=== PATIENT | male | born 1935 | race Caucasian/White ===

== ENCOUNTER 2019-07-26 21:53 | Inpatient (IN) ==
[2019-07-26] MEDS ORDERED: ACETAMINOPHEN 1,000 MG/100 ML VIAL IV STA (22:07)
[2019-07-26] MEDS ORDERED: LEVALBUTEROL HCL 1.25 MG/3 ML NEB NEB STA ×3 (22:08→23:11)
[2019-07-26 22:23] LABS: Basophils # (auto) 0.01 K/uL (0-0.2); Basophils % (auto) 0.2 %; Eosinophils # (auto) 0.15 K/uL (0-0.5); Eosinophils % (auto) 2.3 %; Hematocrit (blood only) 37.6 % (42-52); Hemoglobin 12.8 g/dL (14.0-18.0); Immature Granulocytes # (auto) 0.01 K/uL (0.00-0.02); Immature Granulocytes % (auto) 0.2 %; Lymphocytes # (auto) 0.46 K/uL (1.2-3.4); Lymphocytes % (auto) 7.1 %; Mean Corpuscular Volume 88.1 fL (80-100); Mean Platelet Volume 9.2 fL (7.4-10.4); Monocytes # (auto) 0.36 K/uL (0.11-0.59); Monocytes % (auto) 5.5 %; Neutrophils % (auto) 84.7 %; Platelet Count 122 K/uL (130-400); RDW Coefficient of Variation 14.1 % (11.5-14.5); RDW Standard Deviation 45.3 fL (36.4-46.3); Red Blood Count 4.27 M/uL (4.7-6.1); White Blood Count 6.49 K/uL (4.8-10.8)
--- NOTE | 2019-07-26 22:25 | XRay Report ---
XR chest 1V portable HISTORY: 84 years-old Male SEPSIS acute sepsis COMPARISON: Chest radiographs 03/10/2018, chest CT 03/09/2018. TECHNIQUE: Portable AP view of the chest FINDINGS: Cardiac silhouette is enlarged, unchanged. Prior median sternotomy and CABG. Left subclavian pacer/AI CD redemonstrated. Chronic reticular opacities. Ill-defined left basilar densities. No pneumothorax, large pleural effusion or overt pulmonary edema. Healed remote right-sided rib fractures. Left-sided pleural calcifications with chronic left costophrenic angle blunting. Degenerative changes of the itz ulders and spine. IMPRESSION: 1. Cardiomegaly without overt pulmonary edema. 2. Chronic bilateral reticular opacities suggest fibrosis. 3. Atelectasis/scarring of the left lung base with pleural calcifications redemonstrated. ACT 112: Negative or not required by law. The above report was generated using voice recognition software. It may contain grammatical, syntax o r spelling errors. Electronically signed by: Casimiro Li M.D. 07/26/2019 10:24 PM
[2019-07-26 22:34] LABS: Appearance Urine Clear (Clear); Bacteria Urine Automated Negative (Negative); Bilirubin Urine Negative (Negative); Blood Urine Negative (Negative); Color Urine Yellow; Glucose Urine UA Negative (Negative); Ketones Urine Negative (Negative); Leukocyte Esterase Urine Trace (Negative); Nitrite Urine Negative (Negative); Protein Urine Negative (Negative); RBC Urine Automated 0-4 /hpf (0-4); Specific Gravity Urine 1.022 (1.000-1.030); Urobilinogen Urine Negative (Negative)
[2019-07-26 22:34] LABS: Partial Thromboplastin Ratio 0.8; Partial Thromboplastin Time 22.5 Seconds (21.0-31.0); Prothrombin Time 10.3 Seconds (9.0-12.0)
[2019-07-26 22:39] LABS: Alanine Aminotransferase 107 U/L (12-78); Albumin Level 3.5 gm/dl (3.4-5.0); Aspartate Aminotransferase 138 U/L (15-37); BUN Creatinine Ratio 19.8 (10-20); Blood Urea Nitrogen 28 mg/dl (7-18); Carbon Dioxide 29 mmol/L (21-32); Chloride 105 mmol/L (98-107); Creatinine Clr Calc Pharmacy 35.1 ml/min; Est GFR (African American) 53.4; Est GFR (Non-African American) 46.1; Glucose 122 mg/dl (70-99); Magnesium 1.9 mg/dl (1.8-2.4); Potassium 4.4 mmol/L (3.5-5.1); Sodium 139 mmol/L (136-145)
[2019-07-26 22:44] LABS: Albumin Globulin Ratio 0.9 (0.9-2); Alkaline Phosphatase 298 U/L (45-117); Bilirubin,Total 0.6 mg/dl (0.2-1); Creatine Kinase 44 U/L (39-308); Creatine Kinase MB 1.2 ng/ml (0.5-3.6); Globulin 4.1 gm/dl (2.5-4.0); Total Protein 7.6 gm/dl (6.4-8.2); Troponin I < 0.015 ng/ml (0-0.045)
[2019-07-26 23:04] LABS: Influenza A virus by PCR Neg for Influ A (Neg); Influenza B virus by PCR Neg for Influ B (Neg)
[2019-07-26] MEDS ORDERED: methylPREDNISolone 125 MG/2 ML VIAL IV STA (23:11)
[2019-07-27] MEDS ORDERED: PIPERACILL/TAZOBAC CONSULT ACTIVE PRN (01:20)
[2019-07-27] MEDS ORDERED: ALBUT/IPRATROP 3MG/0.5MG NEB 3 ML VIAL INH PRN (01:20)
[2019-07-27] MEDS ORDERED: XOPENEX/ATROVENT 1.25mg/0.5MG NEB COMBO NEB SCH (01:20)
[2019-07-27] MEDS ORDERED: POLYETHYLENE (MIRALAX) 17 GM PACK PO PRN (01:20)
[2019-07-27] MEDS ORDERED: ACETAMINOPHEN 325 MG TAB PO PRN (01:20)
[2019-07-27] MEDS ORDERED: ONDANSETRON INJ 2 MG/ML 2 ML VIAL IV PRN (01:20)
[2019-07-27] MEDS ORDERED: FUROSEMIDE 20 MG TAB PO PRN (01:20)
[2019-07-27] MEDS ORDERED: NITROGLYCERIN SL 0.4 MG/TAB TAB SL PRN (01:20)
[2019-07-27] MEDS: SODIUM CHLORIDE 0.9% 1000ML 1,000 ML IV SCH ×2 (01:36→13:41)
[2019-07-27] MEDS ORDERED: PIPERACILLIN/TAZOBACTAM 3.375 GM in DEXTROSE 5% 100 ML IV ONE (01:45)
[2019-07-27] MEDS ORDERED: PNEUMOCOCCAL POLYSACCHARIDES 25 MCG/0.5 ML VIAL/SYR IM ONE (01:53)
[2019-07-27] MEDS ORDERED: PNEUMOCOCCAL ADMINISTRATION CHARGE ONE (01:53)
[2019-07-27] MEDS: DOXYCYCLINE HYCLATE 100 MG CAP PO SCH ×2 (01:54→08:10)
--- NOTE | 2019-07-27 02:04 | Emergency Department Note ---
Entered by Meagan Torrez acting as a scribe for History of Present Illness General Chief complaint: Respiratory Problems Stated complaint: SOB Time Seen by Provider: 07/26/19 22:04 Source: patient Mode of arrival: ambulatory Limitations: no limitations History of Present Illness Onset (ago): day(s) 1 Location: chest Radiation: non-radiation Pain Consistency: + constant Relieved By: + other (Oxygen) Exacerbated By: + none Treatments prior to arrival: other (Oxygen, Nitro) The patient is an 84 year old male who presents to the ED with complaints of respiratory problems. He is not normally on Oxygen at home but he put on his wifes oxygen tonight when he felt like he could not breathe. He took 2 Nitro at home and states they did not help as much as the Oyxgen did. Home Medications Home Medications Medication Instructions Recorded Confirmed Type carbidopa-levodopa 1 tab PO TID 03/09/18 07/26/19 History docusate sodium 100 mg PO BID 03/09/18 07/26/19 History felodipine 2.5 mg PO QPM 03/09/18 07/26/19 History furosemide 20 mg PO MOWEFR 03/09/18 07/26/19 History levothyroxine 88 mcg PO DAILY 03/09/18 07/26/19 History lisinopril 2.5 mg PO QAM 03/09/18 07/26/19 History metoprolol succinate 50 mg PO DAILY 03/09/18 07/26/19 History nitroglycerin 0.4 mg SUBLINGUAL DIRECTED PRN 03/09/18 07/26/19 History nortriptyline 100 mg PO HS 03/09/18 07/26/19 History potassium chloride 10 meq PO DAILY 03/09/18 07/26/19 History ranitidine HCl 300 mg PO HS 03/09/18 07/26/19 History selegiline HCl 5 mg PO BID 03/09/18 07/26/19 History sertraline 100 mg PO DAILY 03/09/18 07/26/19 History simvastatin 40 mg PO HS 03/09/18 07/26/19 History aspirin 81 mg tablet,delayed 81 mg PO DAILY 03/18/19 07/26/19 History release ipratropium 0.5 mg-albuterol 3 mg 3 ml INH UD 10/03/19 02/10/20 History (2.5 mg base)/3 mL nebulization soln ketoconazole 2 % topical cream 1 appln TOP HS 03/18/19 07/26/19 History omeprazole 40 mg capsule,delayed 40 mg PO QAM 03/18/19 07/26/19 History release furosemide 20 mg PO DAILY PRN 07/26/19 07/26/19 History nitroglycerin 1 patch TRANSDERMAL QAM 07/26/19 07/26/19 History Allergies Allergy/AdvReac Type Severity Reaction Status Date / Time haloperidol Allergy Unknown LOSS OF Verified 07/26/19 23:36 VISION Past Med/Surg History Medical History CAD (coronary artery disease) (Chronic) 2001 - S/P CABG x 3 2007 -cardiac catheterization demonstrated severe diffuse disease CKD (chronic kidney disease), stage III (Chronic) Depression (Chronic) Dyslipidemia (Chronic) GERD (gastroesophageal reflux disease) (Chronic) Hypertension (Chronic) Hypothyroidism (Chronic) Ischemic cardiomyopathy (Chronic) JOVITA (obstructive sleep apnea) (Chronic) Parkinson's disease (Chronic) 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) Splenic lesion Surgical History H/O bilateral inguinal hernia repair (Chronic) Hx of cholecystectomy (Chronic) S/P CABG x 3 (Chronic) Social History Preferred Language: Panamanian Communication Ability: Effective Visual Impairment: No Limitations Hearing Ability: Normal Supervisor Type Photography Required: No Beliefs That Will Affect Care: None Current Living Situation: Spouse Current Living Situation Comment: Other Information That Helps Us Care for You: No Feels Safe at Home: Yes Safety Concerns: Feels Safe At This Time Smoking Status: Former smoker Tobacco Type: smokeless tobacco ; Do You Dip or Chew Tobacco: Yes ; Second Hand Exposure: No ; Tobacco Cessation Education Requested by Patient: No Hx Alcohol Use: No Hx Substance Use: No Review of Systems See HPI for pertinent positives & negatives. and A total of 10 systems reviewed and were otherwise negative Physical Exam Vital Signs Vital Signs - 24 hr 07/26/19 22:00 07/26/19 22:06 07/26/19 22:09 Temperature 39.5 C H Temperature Source Oral Pulse Rate 101 H 104 H 103 H Pulse Rate [Right Finger] Pulse Rate from SpO2 Sensor 102 H 104 H Respiratory Rate 26 H 25 H 28 H Respiratory Effort / Characteristics Grunting Labored Respiratory Pattern Gasping Blood Pressure 127/71 140/66 Blood Pressure Mean 90 90 Pulse Oximetry 96 98 95 Oxygen Delivery Method Nasal Cannula Oxygen Flow Rate 4 Sepsis Recent Fever Within 48 Hours No Sepsis New/Unexplained Change in Mental Status No Sepsis Action Taken by Nursing No Action Required 07/26/19 22:10 07/26/19 22:20 07/26/19 22:27 Temperature Temperature Source Pulse Rate 107 H 96 H Pulse Rate [Right Finger] Pulse Rate from SpO2 Sensor 111 H 96 H Respiratory Rate 31 H 24 Respiratory Effort / Characteristics Respiratory Pattern Blood Pressure Blood Pressure Mean Pulse Oximetry 94 98 98 Oxygen Delivery Method Nasal Cannula Oxygen Flow Rate 4 Sepsis Recent Fever Within 48 Hours Sepsis New/Unexplained Change in Mental Status Sepsis Action Taken by Nursing 07/26/19 22:30 07/26/19 22:31 07/26/19 22:40 Temperature Temperature Source Pulse Rate 94 H 95 H 92 H Pulse Rate [Right Finger] 94 H Pulse Rate from SpO2 Sensor 95 H 95 H 91 H Respiratory Rate 25 H 32 H 19 Respiratory Effort / Characteristics Spontaneous SOB on Exertion Respiratory Pattern Blood Pressure 124/65 Blood Pressure Mean 84 Pulse Oximetry 98 98 97 Oxygen Delivery Method Nasal Cannula Oxygen Flow Rate 4 Sepsis Recent Fever Within 48 Hours Sepsis New/Unexplained Change in Mental Status Sepsis Action Taken by Nursing 07/26/19 22:50 07/26/19 23:00 07/26/19 23:10 Temperature Temperature Source Pulse Rate 96 H 90 89 Pulse Rate [Right Finger] Pulse Rate from SpO2 Sensor 91 H 90 90 Respiratory Rate 20 21 Respiratory Effort / Characteristics Respiratory Pattern Blood Pressure 132/75 Blood Pressure Mean 92 Pulse Oximetry 97 98 97 Oxygen Delivery Method Oxygen Flow Rate Sepsis Recent Fever Within 48 Hours Sepsis New/Unexplained Change in Mental Status Sepsis Action Taken by Nursing 07/26/19 23:20 07/26/19 23:30 07/26/19 23:31 Temperature Temperature Source Pulse Rate 85 88 86 Pulse Rate [Right Finger] Pulse Rate from SpO2 Sensor 86 87 87 Respiratory Rate 23 24 Respiratory Effort / Characteristics Respiratory Pattern Blood Pressure 165/129 H Blood Pressure Mean 161 Pulse Oximetry 97 94 97 Oxygen Delivery Method Oxygen Flow Rate Sepsis Recent Fever Within 48 Hours Sepsis New/Unexplained Change in Mental Status Sepsis Action Taken by Nursing 07/26/19 23:32 07/26/19 23:40 07/26/19 23:50 Temperature Temperature Source Pulse Rate 84 87 88 Pulse Rate [Right Finger] 86 Pulse Rate from SpO2 Sensor 84 86 88 Respiratory Rate 16 28 H 22 Respiratory Effort / Characteristics Spontaneous Respiratory Pattern Blood Pressure Blood Pressure Mean Pulse Oximetry 98 98 97 Oxygen Delivery Method Nasal Cannula Oxygen Flow Rate 4 Sepsis Recent Fever Within 48 Hours Sepsis New/Unexplained Change in Mental Status Sepsis Action Taken by Nursing 07/27/19 00:00 07/27/19 00:02 07/27/19 00:10 Temperature Temperature Source Pulse Rate 88 89 88 Pulse Rate [Right Finger] Pulse Rate from SpO2 Sensor 101 H 89 87 Respiratory Rate 24 19 24 Respiratory Effort / Characteristics Respiratory Pattern Blood Pressure 163/59 H Blood Pressure Mean 91 Pulse Oximetry 93 98 98 Oxygen Delivery Method Oxygen Flow Rate Sepsis Recent Fever Within 48 Hours Sepsis New/Unexplained Change in Mental Status Sepsis Action Taken by Nursing GENERAL: Awake, alert, well-appearing, in no acute distress HENT: Normocephalic, atraumatic. Oropharynx unremarkable. EYES: Normal conjunctiva. Sclera non-icteric. NECK: Supple. No nuchal rigidity. FROM. No JVD. CHEST: Pacemaker in place in chest wall. RESPIRATORY: Distant lung sounds. CARDIAC: Regular rate, normal rhythm. Extremities warm and well perfused. Pulses equal. ABDOMEN: Soft, non-distended. No tenderness to palpation. No rebound or guarding. No masses. RECTAL: Deferred. MUSCULOSKELETAL: Chest examination reveals no tenderness. The back is symmetrical on inspection without obvious abnormality. There is no CVA tenderness to palpation. No joint edema. LOWER EXTREMITIES: Calves are equal size bilaterally and non-tender. No edema. No discoloration. NEURO: Normal sensorium. No sensory or motor deficits noted. SKIN: No rash or jaundice noted. Course Course 2204: The patient was evaluated in room B7 and a complete history and physical were performed. 2319: I discussed the patients case with Dr. Rodriguez, [facility] Hospitalist. The patient will be further evaluated. 2330: I reevaluated the patient. He is resting comfortably. I discussed his results and my recommendation he remain in the hospital for further evaluation and management and he is agreeable with the plan. Administered Medications Doxycycline Hyclate (Vibramycin) 100 mg PO BID ANITA Stop: 08/03/19 01:19 Last Admin: 07/27/19 01:54 Dose: 100 mg Documented by: [id number] Sodium Chloride (Nss 1000ml) 1,000 mls @ 80 mls/hr IV .[id number] ANITA Stop: 08/26/19 19:00 Last Admin: 07/27/19 01:36 Dose: 80 mls/hr Documented by: [id number] Piperacillin Sod/Tazobactam (Sod 3.375 gm/ Dextrose) 115 mls @ 230 mls/hr IV ONE ONE; Protocol Stop: 07/27/19 02:14 Last Admin: 07/27/19 01:53 Dose: 230 mls/hr Documented by: [id number] Miscellaneous (Remove Nitro-Dur Patch) 1 ea N/A DAILY@2100 COUNT INCLUDES THE [facility] Stop: 08/26/19 01:44 Last Admin: 07/27/19 01:56 Dose: 1 ea Documented by: [id number] Discontinued Medications Acetaminophen (Ofirmev) 1,000 mg in 100 mls @ 400 mls/hr IV NOW STA Stop: 07/26/19 22:21 Last Infusion: 07/26/19 23:35 Dose: 0 mls/hr Documented by: [id number] Admin: 07/26/19 22:33 Dose: 400 mls/hr Documented by: [id number] Levalbuterol HCl (Xopenex 1.25mg/3ml Neb) 1.25 mg NEB NOW STA Stop: 07/26/19 22:09 Last Admin: 07/26/19 22:30 Dose: 1.25 mg Documented by: [id number] Levalbuterol HCl (Xopenex 1.25mg/3ml Neb) 1.25 mg NEB NOW STA Stop: 07/26/19 23:05 Last Admin: 07/26/19 23:32 Dose: 1.25 mg Documented by: [id number] Levalbuterol HCl (Xopenex 1.25mg/3ml Neb) 1.25 mg NEB NOW STA Stop: 07/26/19 23:12 Last Admin: 07/26/19 23:32 Dose: 1.25 mg Documented by: [id number] Methylprednisolone (Solumedrol) 60 mg IV NOW STA Stop: 07/26/19 23:12 Last Admin: 07/26/19 23:35 Dose: 60 mg Documented by: [id number] Medical Decision Making Differential Diagnosis Differential diagnoses includes but is not limited to pneumonia, bronchitis, COPD/Asthma exacerbation, pneumothorax, pulmonary embolism, congestive heart failure, acute coronary syndrome. Medical Records Attestation: I reviewed the patient's medical records. Home Medications Current Medication List: was personally reviewed by me Laboratory Data Attestation: I reviewed the patient's lab results. Result diagrams: 07/26/19 22:09 07/26/19 22:09 Lab Results 07/26/19 07/26/19 07/26/19 Range/Units 22:09 22:09 22:09 WBC 6.49 (4.8-10.8) K/uL RBC 4.27 L (4.7-6.1) M/uL Hgb 12.8 L (14.0-18.0) g/dL Hct 37.6 L (42-52) % MCV 88.1 (80-100) fL MCH 30.0 (25-34) pg MCHC 34.0 (32-36) g/dL RDW Std Deviation 45.3 (36.4-46.3) fL RDW Coeff of [place]aja 14.1 (11.5-14.5) % Plt Count 122 L (130-400) K/uL MPV 9.2 (7.4-10.4) fL Immature Gran % (Auto) 0.2 % Neut % (Auto) 84.7 % Lymph % (Auto) 7.1 % [place] % (Auto) 5.5 % Eos % (Auto) 2.3 % Baso % (Auto) 0.2 % Immature Gran # (Auto) 0.01 (0.00-0.02) K/uL Neut # (Auto) 5.50 (1.4-6.5) K/uL Lymph # (Auto) 0.46 L (1.2-3.4) K/uL [place] # (Auto) 0.36 (0.11-0.59) K/uL Eos # (Auto) 0.15 (0-0.5) K/uL Baso # (Auto) 0.01 (0-0.2) K/uL PT 10.3 (9.0-12.0) Seconds INR 1.0 (0.9-1.1) APTT 22.5 (21.0-31.0) Seconds PTT Ratio 0.8 Sodium 139 (136-145) mmol/L Potassium 4.4 (3.5-5.1) mmol/L Chloride 105 (98-107) mmol/L Carbon Dioxide 29 (21-32) mmol/L Anion Gap 5.0 (3-11) BUN 28 H (7-18) mg/dl Creatinine 1.41 H (0.6-1.4) mg/dl Est Cr Clr Drug Dosing 35.1 ml/min Est GFR ( Amer) 53.4 Est GFR (Non-Af Amer) 46.1 BUN/Creatinine Ratio 19.8 (10-20) Glucose 122 H (70-99) mg/dl Lactate (0.4-2.0) mmol/L Calcium 9.0 (8.5-10.1) mg/dl Magnesium 1.9 (1.8-2.4) mg/dl Total Bilirubin 0.6 (0.2-1) mg/dl AST 138 H (15-37) U/L ALT 107 H (12-78) U/L Alkaline Phosphatase 298 H (45-117) U/L Total Creatine Kinase 44 (39-308) U/L CK-MB (CK-2) 1.2 (0.5-3.6) ng/ml CK/CKMB % Calc 2.7 (0-3.0) Troponin I < 0.015 (0-0.045) ng/ml Total Protein 7.6 (6.4-8.2) gm/dl Albumin 3.5 (3.4-5.0) gm/dl Globulin 4.1 H (2.5-4.0) gm/dl Albumin/Globulin Ratio 0.9 (0.9-2) Procalcitonin (0-0.5) ng/ml Urine Color Urine Appearance (Clear) Urine pH (4.5-7.5) Ur Specific [place] (1.000-1.030) Urine Protein (Negative) Urine Glucose (UA) (Negative) Urine Ketones (Negative) Urine Blood (Negative) Urine Nitrite (Negative) Urine Bilirubin (Negative) Urine Urobilinogen (Negative) Ur Leukocyte Esterase (Negative) Urine WBC (Auto) (0-5) /hpf Urine RBC (Auto) (0-4) /hpf U Hyaline Cast (Auto) (0-5) /lpf U Epithel Cells (Auto) (0-5) /lpf Urine Bacteria (Auto) (Negative) Influenza Type A (PCR) (Neg) Influenza Type B (PCR) (Neg) 07/26/19 07/26/19 07/26/19 Range/Units 22:09 22:28 Unknown WBC (4.8-10.8) K/uL RBC (4.7-6.1) M/uL Hgb (14.0-18.0) g/dL Hct (42-52) % MCV (80-100) fL MCH (25-34) pg MCHC (32-36) g/dL RDW Std Deviation (36.4-46.3) fL RDW Coeff of Jaja (11.5-14.5) % Plt Count (130-400) K/uL MPV (7.4-10.4) fL Immature Gran % (Auto) % Neut % (Auto) % Lymph % (Auto) % [place] % (Auto) % Eos % (Auto) % Baso % (Auto) % Immature Gran # (Auto) (0.00-0.02) K/uL Neut # (Auto) (1.4-6.5) K/uL Lymph # (Auto) (1.2-3.4) K/uL [place] # (Auto) (0.11-0.59) K/uL Eos # (Auto) (0-0.5) K/uL Baso # (Auto) (0-0.2) K/uL PT (9.0-12.0) Seconds INR (0.9-1.1) APTT (21.0-31.0) Seconds PTT Ratio Sodium (136-145) mmol/L Potassium (3.5-5.1) mmol/L Chloride (98-107) mmol/L Carbon Dioxide (21-32) mmol/L Anion Gap (3-11) BUN (7-18) mg/dl Creatinine (0.6-1.4) mg/dl Est Cr Clr Drug Dosing ml/min Est GFR ( Amer) Est GFR (Non-Af Amer) BUN/Creatinine Ratio (10-20) Glucose (70-99) mg/dl Lactate 1.4 (0.4-2.0) mmol/L Calcium (8.5-10.1) mg/dl Magnesium (1.8-2.4) mg/dl Total Bilirubin (0.2-1) mg/dl AST (15-37) U/L ALT (12-78) U/L Alkaline Phosphatase (45-117) U/L Total Creatine Kinase (39-308) U/L CK-MB (CK-2) (0.5-3.6) ng/ml CK/CKMB % Calc (0-3.0) Troponin I (0-0.045) ng/ml Total Protein (6.4-8.2) gm/dl Albumin (3.4-5.0) gm/dl Globulin (2.5-4.0) gm/dl Albumin/Globulin Ratio (0.9-2) Procalcitonin 0.38 (0-0.5) ng/ml Urine Color Urine Appearance (Clear) Urine pH (4.5-7.5) Ur Specific [place] (1.000-1.030) Urine Protein (Negative) Urine Glucose (UA) (Negative) Urine Ketones (Negative) Urine Blood (Negative) Urine Nitrite (Negative) Urine Bilirubin (Negative) Urine Urobilinogen (Negative) Ur Leukocyte Esterase (Negative) Urine WBC (Auto) (0-5) /hpf Urine RBC (Auto) (0-4) /hpf U Hyaline Cast (Auto) (0-5) /lpf U Epithel Cells (Auto) (0-5) /lpf Urine Bacteria (Auto) (Negative) Influenza Type A (PCR) Neg for Influ A (Neg) Influenza Type B (PCR) Neg for Influ B (Neg) 07/26/19 Range/Units Unknown WBC (4.8-10.8) K/uL RBC (4.7-6.1) M/uL Hgb (14.0-18.0) g/dL Hct (42-52) % MCV (80-100) fL MCH (25-34) pg MCHC (32-36) g/dL RDW Std Deviation (36.4-46.3) fL RDW Coeff of Jaja (11.5-14.5) % Plt Count (130-400) K/uL MPV (7.4-10.4) fL Immature Gran % (Auto) % Neut % (Auto) % Lymph % (Auto) % [place] % (Auto) % Eos % (Auto) % Baso % (Auto) % Immature Gran # (Auto) (0.00-0.02) K/uL Neut # (Auto) (1.4-6.5) K/uL Lymph # (Auto) (1.2-3.4) K/uL [place] # (Auto) (0.11-0.59) K/uL Eos # (Auto) (0-0.5) K/uL Baso # (Auto) (0-0.2) K/uL PT (9.0-12.0) Seconds INR (0.9-1.1) APTT (21.0-31.0) Seconds PTT Ratio Sodium (136-145) mmol/L Potassium (3.5-5.1) mmol/L Chloride (98-107) mmol/L Carbon Dioxide (21-32) mmol/L Anion Gap (3-11) BUN (7-18) mg/dl Creatinine (0.6-1.4) mg/dl Est Cr Clr Drug Dosing ml/min Est GFR ( Amer) Est GFR (Non-Af Amer) BUN/Creatinine Ratio (10-20) Glucose (70-99) mg/dl Lactate (0.4-2.0) mmol/L Calcium (8.5-10.1) mg/dl Magnesium (1.8-2.4) mg/dl Total Bilirubin (0.2-1) mg/dl AST (15-37) U/L ALT (12-78) U/L Alkaline Phosphatase (45-117) U/L Total Creatine Kinase (39-308) U/L CK-MB (CK-2) (0.5-3.6) ng/ml CK/CKMB % Calc (0-3.0) Troponin I (0-0.045) ng/ml Total Protein (6.4-8.2) gm/dl Albumin (3.4-5.0) gm/dl Globulin (2.5-4.0) gm/dl Albumin/Globulin Ratio (0.9-2) Procalcitonin (0-0.5) ng/ml Urine Color Yellow Urine Appearance Clear (Clear) Urine pH 5.0 (4.5-7.5) Ur Specific [place] 1.022 (1.000-1.030) Urine Protein Negative (Negative) Urine Glucose (UA) Negative (Negative) Urine Ketones Negative (Negative) Urine Blood Negative (Negative) Urine Nitrite Negative (Negative) Urine Bilirubin Negative (Negative) Urine Urobilinogen Negative (Negative) Ur Leukocyte Esterase Trace H (Negative) Urine WBC (Auto) 5-10 H (0-5) /hpf Urine RBC (Auto) 0-4 (0-4) /hpf U Hyaline Cast (Auto) 1-5 (0-5) /lpf U Epithel Cells (Auto) 10-20 H (0-5) /lpf Urine Bacteria (Auto) Negative (Negative) Influenza Type A (PCR) (Neg) Influenza Type B (PCR) (Neg) Imaging Data Radiologist's Impression: Radiology results as stated below per my review and the radiologist's interpretation: XR chest 1V portable HISTORY: 84 years-old Male SEPSIS acute sepsis COMPARISON: Chest radiographs 03/10/2018, chest CT 03/09/2018. TECHNIQUE: Portable AP view of the chest FINDINGS: Cardiac silhouette is enlarged, unchanged. Prior median sternotomy and CABG. Left subclavian pacer/AICD redemonstrated. Chronic reticular opacities. Ill- defined left basilar densities. No pneumothorax, large pleural effusion or overt pulmonary edema. Healed remote right-sided rib fractures. Left-sided pleural calcifications with chronic left costophrenic angle blunting. Degenerative changes of the shoulders and spine. IMPRESSION: 1. Cardiomegaly without overt pulmonary edema. 2. Chronic bilateral reticular opacities suggest fibrosis. 3. Atelectasis/scarring of the left lung base with pleural calcifications redemonstrated. ACT 112: Negative or not required by law. The above report was generated using voice recognition software. It may contain grammatical, syntax or spelling errors. Electronically signed by: Casimiro Li M.D. 07/26/2019 10:24 PM ECG Data Attestation: I personally reviewed and interpreted this ECG as follows: Indication: + SOB/dyspnea Rate (beats per minute): 98 Rhythm: + other (Paced rhythm) ECG Intervals/blocks: + Normal QT-c (QTC is 541) ECG ST segments: no ST depression and no ST elevation Blood Pressure Blood Pressure Findings: Elevated blood pressure Blood Pressure Disposition: further management by hospitalist [facility] Narrative This is an 84-year-old male who presents emergency department complaining of s hortness of breath. Patient is not normally on oxygen however his been on his 's oxygen. He was given breathing treatments here in the emergency department and started on Solu-Medrol. As the patient is still requiring oxygen I discussed case with the hospitalist service who did agree to admit the patient. Patient is in agreement with the treatment plan. Impression & Plan Hypoxia, CKD (chronic kidney disease), stage III Discharge Plan Visit Data *Final* Discharge Date/Time: 07/27/19 00:36 Chief Complaint: Respiratory Problems Stated Complaint: SOB ED Provider: Forest Gonzalez Discharge Problem: Hypoxia, CKD (chronic kidney disease), stage III Patient Disposition: Admitted As Inpatient Discharge Instructions Interventions: ED Discharge Assessment Last Done: 07/27/19 00:36 The scribe's documentation has been prepared under my direction and personally reviewed by me in its entirety. I confirm that the note above accurately reflects all work, treatment, procedures, and medical decision making performed by me.
--- NOTE | 2019-07-27 03:11 | History and Physical Report ---
DATE OF ADMISSION: 07/27/2019 CHIEF COMPLAINT: Shortness of breath and abdominal discomfort. HISTORY OF PRESENT ILLNESS: This is an 84-year-old male with past medical history significant for hypothyroidism, hyperlipidemia, ischemic cardiomyopathy, chronic kidney disease stage III, systolic CHF, severe mitral regurgitation, moderate aortic stenosis, hypertension, GERD, Parkinson's disease, depression, CAD status post CABG, biventricular defibrillator, obstructive sleep apnea, supposed to use oxygen at nighttime which the patient is not using it, who lives with his , ambulates without any support, has some difficulty swallowing with his Parkinson's, but he is on regular diet was brought in because he was complaining of shortness of breath, abdominal discomfort at home and he has some dry cough, but he could not bring any phlegm out . At home his put her oxygen on him and his symptoms seemed to improved . It seemed his oxygen sats were only 60% at home. In the ER he is currently requiring 4 liters oxygen and saturating okay. Speaking in full sentences. Has Parkinson's, has some dementia, some tremors in his hands.Vitals are okay currently. Denies any fever or chills. He says the shortness of breath and abdominal pain started at the same time, but they are both resolved now. Denies any diarrhea. He has constipation. He goes bowel movements every 2-3 days, last bowel movement was yesterday and was normal. Normal bladder movements. No swelling in the legs, no rash seen. Denies any headache. Vision is okay. No runny nose, no sore throat. Denies any chest pain. He was spiking temperature in the ER, T-max of 39.5. Flu was negative. Received nebs, Tylenol and steroids in the ER, seems to be stable at this time. ALLERGIES: HALOPERIDOL. PAST MEDICAL HISTORY: As mentioned above. PAST SURGICAL HISTORY: Cardiac cath, CABG, EGD with biopsy, laparoscopic cholecystectomy, repair of recurrent inguinal hernia, defibrillator. MEDICATIONS: Currently on lisinopril 2.5 mg p.o. daily; Zoloft 100 mg p.o. daily; nortriptyline 100 mg p.o. at bedtime; Pepcid 40 mg p.o. daily; selegiline 5 mg daily with food; Toprol-XL 50 mg p.o. daily; felodipine ER 2.5 mg p.o. daily; Lasix 20 mg on Friday, Friday and Fridays and additional tablet as needed; ketoconazole 2% cream apply topically daily p.r.n.; levothyroxine 88 mcg p.o. daily; nitroglycerin 0.4 mg per hour patch in the morning and remove in the evening; omeprazole 40 mg p.o. daily; potassium chloride 10 mEq p.o. daily; simvastatin 40 mg p.o. at bedtime; carbidopa/levodopa 25/100 one tablet 3 times a day; nitroglycerin 0.4 mg sublingual p.r.n.; aspirin 81 mg p.o. daily; Duo Nebs 4-6 times daily; Colace 100 mg p.o. daily. FAMILY HISTORY: No family history on file. SOCIAL HISTORY: and lives with his , snuffs tobacco. No alcohol use, no drug use. REVIEW OF SYMPTOMS: As per HPI. Rest of review of symptoms negative. PHYSICAL EXAMINATION: GENERAL: The patient is of moderate build, currently not in acute distress. VITAL SIGNS: Temperature 39.5, pulse 86, respiratory rate 18, blood pressure 99/62, oxygen 93% on 4 liters. HEENT: No pallor, no icterus. Pupils equal, round, reactive to light. NECK: No JVD, no neck masses, no carotid bruits. CARDIOVASCULAR: S1, S2 heard. Regular rate and rhythm. No murmur, no gallop. RESPIRATORY SYSTEM: Normal AP diameter. No accessory muscle use. mild rhonchi. No wheezing. ABDOMEN: Soft, bowel sounds present, nontender. No distention. CENTRAL NERVOUS SYSTEM: Alert, awake and oriented. Speech clear. Obeys commands. Moves extremities. EXTREMITIES: No edema, no erythema seen. LABORATORY DATA: WBC 6.4, hemoglobin 12.8, hematocrit 37.6, platelets 122. PT 10.3, INR 1, APTT 22.5. Sodium 139, potassium 4.4, chloride 105, bicarb 29, BUN 28, creatinine 1.4, serum glucose 129, lactate 1.4, calcium 9, magnesium 1.9. Total bilirubin 0.6, AST 138, ALT 107, alkaline phosphatase 298. Total creatine kinase 44, CK-MB 1.2. Troponin I less than 0.015. Procalcitonin 0.38. Urinalysis; trace leukocyte esterase positive. Influenza A and B, PCR negative. Chest x-ray: Cardiomegaly without overt pulmonary edema, chronic bilateral reticular opacities suggest fibrosis, atelectasis and scarring at the left lung base with pleural calcifications re demonstrated. ASSESSMENT AND PLAN: This is an 84-year-old male who presents with shortness of breath and abdominal discomfort and hypoxia, possible chronic obstructive pulmonary disease exacerbation and also elevated LFTs in labs. 1. Shortness of breath, history of COPD. Copd exacerbation.Hypoxia. Follows with Pulmonary. Received nebs and steroids in the ER which we will continue with IV Solu-Medrol 40 mg t.i.d., nebs around the clock and p.r.n. We will place him on doxycycline and Zosyn for now and continue his oxygenation. Monitor in the med/surg tele.Possible aspiration? speech evaluation. 2. Fever, elevated LFTs, abdominal discomfort. Chest x-ray unremarkable. UA, esterase positive. Antibiotics as above. We will follow the cultures. We will get a CT abdomen and pelvis and repeat LFTs in a.m. and monitor in the medical floor. 3. Obstructive sleep apnea, noncompliant with oxygen in the nighttime. 4. History of CAD, status post CABG. On Toprol-XL, aspirin, nitro patch and statin. Currently seems to be stable .. We will continue and monitor. 5. History of chronic systolic CHF, EF of 50% and also Diastolic moderate aortic stenosis. He is currently getting gentle fluids. We will continue home Lasix and lisinopril.. Monitor for any volume overload. 6. History of hypertension, on lisinopril, Toprol-XL, diuretic, nitropatch and felodipine.. We will monitor the blood pressure. 7. History of depression, on Zoloft and nortriptyline. 8. History of GERD, on PPI and Pepcid. 9. History of Parkinson's disease, on Sinemet and selegiline which we will continue. PT and OT prior to discharge. 10. Hypothyroidism. Continue Synthroid. 11. Chronic kidney disease stage III. Baseline creatinine around 1.3-1.4, current creatinine 1.4. We will follow the labs. 12. DVT prophylaxis, heparin subQ. DISPOSITION: Admit to med/surg tele. Level 1 full code. PT and OT prior to discharge. Social Service to help with discharge planning. MTDD
[2019-07-27] MEDS: PIPERACILLIN/TAZOBACTAM 3.375 GM in DEXTROSE 5% 100 ML IV SCH ×3 (05:41→22:53)
[2019-07-27] MEDS: HEPARIN SOD 5,000 UNIT/0.5 ML VIAL SQ SCH ×3 (05:45→22:45)
[2019-07-27] MEDS: LEVOTHYROXINE SODIUM 88 MCG TABLET PO SCH (05:45)
[2019-07-27 06:12] LABS: Alanine Aminotransferase 99 U/L (12-78); Alkaline Phosphatase 207 U/L (45-117); Aspartate Aminotransferase 95 U/L (15-37); Bilirubin Direct < 0.1 mg/dl (0-0.2); Bilirubin,Total 0.6 mg/dl (0.2-1); Total Protein 6.6 gm/dl (6.4-8.2)
[2019-07-27] MEDS: LEVALBUTEROL 1.25MG/0.5ML NEB INH SCH ×3 (06:59→20:30)
[2019-07-27] MEDS: IPRATROPIUM BROMIDE NEB SOLN 0.02% 2.5 ML VIAL INH SCH ×3 (06:59→20:30)
--- NOTE | 2019-07-27 07:22 | CT Scan Report ---
CT SCAN OF THE ABDOMEN AND PELVIS WITHOUT IV CONTRAST CLINICAL HISTORY: Generalized abdominal pain. COMPARISON STUDY: Abdominal CT dated 03/09/2018 and 01/22/2008. MRCP dated 03/09/2013. TECHNIQUE: CT scan of the abdomen and pelvis is performed from the lung bases to the proximal femora. Images are reviewed in the axial, sagittal, and coronal planes. IV contrast was not administered for this examination as per the referring clinician. Note that the examination was performed in signific ant suboptimal fashion without oral and IV contrast. A dose lowering technique was utilized adhering to the principles of ALARA. CT DOSE: 433.50 mGy.cm FINDINGS: Lung bases: The patient is status post midline sternotomy. The heart is mildly enlarged and without p ericardial effusion. The coronary arteries and aortic valve leaflets are densely calcified. There is diminished attenuation of the cardiac blood pool as compared to the myocardium suggesting anemia. Pac emaker leads are noted. Gynecomastia is noted. Calcified pleural plaque with associated pleural thick ening is again seen at the left lung base. Probable scarring and atelectasis is noted at the lung bas es. There is no airspace consolidation typical for pneumonia or pleural effusion. A small hiatal stacy ia is identified. Liver: The unenhanced liver is normal in size, contour, and attenuation. There is no intrahepatic gio iary ductal dilatation. Pneumobilia is again noted. There are scattered calcified granulomas. Gallbladder: Surgically absent. Spleen: Normal in size and attenuation. There are numerous calcified splenic granulomas. Pancreas: The unenhanced pancreas is atrophic. There is a 1.7 cm well-circumscribed and slightly hype rdense lesion in the uncinate process seen on axial image #162. This is been present dating back to 2 008 and is of low suspicion. Adrenal glands: Unremarkable. Kidneys: The unenhanced kidneys are atrophic and without hydronephrosis. There are no renal calculi i dentified. There is no evidence of contour deforming renal mass lesion. Abdominal vasculature: The abdominal aorta is normal in course and caliber noting advanced atheroscle rotic calcification. Bowel: There is mild to moderate colonic fecal retention. No bowel obstruction is seen. The appendix is well visualized and normal. Peritoneum: There is no intraperitoneal free air or abdominal ascites. Lymphadenopathy: None. Pelvic viscera: The prostate gland is enlarged and heterogeneous, measuring 5.4 cm in transverse diam eter. There is median lobe hypertrophy. The bladder wall is thickened and trabeculated indicating chr onic outlet obstruction. There is a small fat-containing left inguinal hernia. Skeletal structures: The skeletal structures are osteopenic. There is a mild chronic superior endplat e compression deformity of T1. Moderate lumbosacral spondylosis is observed. No lytic or blastic lesi ons are seen. There are numerous healed right-sided rib fractures. IMPRESSION: 1. There are no acute infectious or inflammatory findings in the abdomen or pelvis. 2. Cardiomegaly and cardiac pacemaker. 3. Mild/moderate constipation. 4. Prostatomegaly with evidence of chronic bladder outlet obstruction. 5. Additional findings as above. ACT 112: Negative or not required by law. Electronically signed by: Avtar Porter M.D. 07/27/2019 7:21 AM
[2019-07-27] MEDS: SELEGILINE HCL 5 MG TAB PO SCH ×2 (08:09→22:39)
[2019-07-27] MEDS: POTASSIUM CHLORIDE 10 MEQ TABCR PO SCH (08:09)
[2019-07-27] MEDS: ASPIRIN 81 MG ECTAB PO SCH (08:09)
[2019-07-27] MEDS: DOCUSATE SODIUM 100 MG CAP PO SCH ×2 (08:09→22:39)
[2019-07-27] MEDS: NITROGLYCERIN 0.4 MG/HR PATCH TD SCH (08:09)
[2019-07-27] MEDS: CARBIDOPA/LEVODOPA 25/100MG TAB PO SCH ×3 (08:10→22:44)
[2019-07-27] MEDS: METOPROLOL SUCC 50MG EXT REL TAB PO SCH (08:10)
[2019-07-27] MEDS: methylPREDNISolone 40 MG in SYRINGE 0 ML IV SCH ×2 (08:10→16:17)
[2019-07-27] MEDS: PANTOprazole 40 MG TAB PO SCH (08:10)
[2019-07-27] MEDS: SERTRALINE HCL 100 MG TABLET PO SCH (08:10)
--- NOTE | 2019-07-27 13:26 | Gastrointestinal Consultation ---
Date of Consultation July 27, 2019 Assessment & Plan (1) Elevated LFTs: 84 year old male HTN, dyslipidemia, hypothyroidism, CKD-3, ischemic cardiomyopathy, chronic kidney disease stage III, systolic CHF, mitral regurgitation, moderate aortic stenosis, GERD, PD, CAD status post CABG, biv entricular defibrillator, JOVITA admitted through the ED w/ abdominal pain, elevated LFTs, SOB and positive blood cultures. He does have a history of cholecystectomy years ago, retained biliary sludge s/p ERCP w/ balloon sweep and sphincterotomy in 2008 - NPO - Follow blood cultures - Trend LFTs - ABD US and ABD doppler - If his cardiac device is MR compatible, please consider MRCP - Agree w/ IV ABX for biliary coverage - IV hydration for maintenance fluid - Closely watch for signs of volume overload - Lipase, BNP Thank you for allowing us to participate in the care of this patient. Please fady l with any acute changes, questions or concerns. Please see addendum below with additional recommendation from my supervising physician. Present on Admission?: Yes Supervising Physician Co-Signing Physician Notes I have seen and examined the patient and discussed the management with ELEAZAR [place]> 84 yo male with significant cardiac history and defibrillator, admitted for sob, noted to be hypotensive and with + blood culture. Prior cholecsystectomy and ercp with sphincterotomy in the past. Labs showing ast/alt/alk phos elevation, no bili elevation. Non con CT A/P showing non dilated ih/eh bile ducts. Diff- congestive hepatopathy, versus retained stone. unlikely to be able to get MRCP, will plan for abd karo with doppler. continue abx. Pending on results of abd karo with doppler and size of cbd, will determine if he needs an ercp or not. Checking bnp, lipase, viral serologies as well. History of Present Illness Reason for Consultation: elevated, lfts Requesting Physician: Josh Attending Physician: Mehreen Moreno MD History of Present Illness 84 year old male w/ chronic comorbidities of HTN, dyslipidemia, hypothyroidism, CKD-3, ischemic cardiomyopathy, chronic kidney disease stage III, systolic CHF, mitral regurgitation, moderate aortic stenosis, GERD, PD, CAD status post CABG, biventricular defibrillator, JOVITA who presents through the ED w/ weakness, fatigue subsequently admitted w/ positive blood cultures, hypoxia, possible chronic obstructive, pulmonary disease exacerbation. GI asked to evaluate for elevated LFTs and abdominal pain. Pt was seen and evaluated, chart reviewed. He is a poor historian. No family at bedside. He does report upper abdominal pain. He is unable to specify when this started but suggests it woke him up from his sleep. Pain is currently subsided but suggests it has been intermittent and se lynda when occurs. No nausea/vomiting. Is constipated, moves bowels once every 3/4 days. No black or bloody stools Denies ETOH Uses tylenol PRN blood culture: gram negative bacilli TB 0.6 AST 95 ALT 99 ALKP 207 CTAP: Liver: The unenhanced liver is normal in size, contour, and attenuation. There is no intrahepatic biliary ductal dilatation. Pneumobilia is again noted. There are scattered calcified granulomas.Gallbladder: Surgically absent.Spleen: Normal in size and attenuation. There are numerous calcified splenic granulomas. The unenhanced pancreas is atrophic. There is a 1.7 cm well-circumscribed and slightly hyperdense lesion in the uncinate process seen on axial image #162. This is been present dating back to 2007 and is of low suspicion. Allergies Allergy/AdvReac Type Severity Reaction Status Date / Time haloperidol Allergy Unknown LOSS OF Verified 07/26/19 23:36 VISION Home Medications Home Medications Medication Instructions Recorded Confirmed Type carbidopa-levodopa 1 tab PO TID 03/09/18 07/26/19 History docusate sodium 100 mg PO BID 03/09/18 07/26/19 History felodipine 2.5 mg PO QPM 03/09/18 07/26/19 History furosemide 20 mg PO MOWEFR 03/09/18 07/26/19 History levothyroxine 88 mcg PO DAILY 03/09/18 07/26/19 History lisinopril 2.5 mg PO QAM 03/09/18 07/26/19 History metoprolol succinate 50 mg PO DAILY 03/09/18 07/26/19 History nitroglycerin 0.4 mg SUBLINGUAL DIRECTED PRN 03/09/18 07/26/19 History nortriptyline 100 mg PO HS 03/09/18 07/26/19 History potassium chloride 10 meq PO DAILY 03/09/18 07/26/19 History ranitidine HCl 300 mg PO HS 03/09/18 07/26/19 History selegiline HCl 5 mg PO BID 03/09/18 07/26/19 History sertraline 100 mg PO DAILY 03/09/18 07/26/19 History simvastatin 40 mg PO HS 03/09/18 07/26/19 History aspirin 81 mg tablet,delayed 81 mg PO DAILY 03/18/19 07/26/19 History release ipratropium 0.5 mg-albuterol 3 mg 3 ml INH UD 03/18/19 07/26/19 History (2.5 mg base)/3 mL nebulization soln ketoconazole 2 % topical cream 1 appln TOP HS 03/18/19 07/26/19 History omeprazole 40 mg capsule,delayed 40 mg PO QAM 03/18/19 07/26/19 History release furosemide 20 mg PO DAILY PRN 07/26/19 07/26/19 History nitroglycerin 1 patch TRANSDERMAL QAM 07/26/19 07/26/19 History Patient History Medical History CAD (coronary artery disease) (Chronic) 2001 - S/P CABG x 3 2006 -cardiac catheterization demonstrated severe diffuse disease CKD (chronic kidney disease), stage III (Chronic) Depression (Chronic) Dyslipidemia (Chronic) GERD (gastroesophageal reflux disease) (Chronic) Hypertension (Chronic) Hypothyroidism (Chronic) Ischemic cardiomyopathy (Chronic) 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) Splenic lesion Surgical History H/O bilateral inguinal hernia repair (Chronic) Hx of cholecystectomy (Chronic) S/P CABG x 3 (Chronic) Social History Preferred Language: Belarusian Communication Ability: Effective Visual Impairment: No Limitations Hearing Ability: Normal Putty Mixer Required: No Beliefs That Will Affect Care: None Current Living Situation: Spouse Current Living Situation Comment: Other Information That Helps Us Care for You: No Feels Safe at Home: Yes Safety Concerns: Feels Safe At This Time Smoking Status: Former smoker Tobacco Type: smokeless tobacco ; Do You Dip or Chew Tobacco: Yes ; Second Hand Exposure: No ; Tobacco Cessation Education Requested by Patient: No Hx Alcohol Use: No Hx Substance Use: No Review of Systems Constitutional: + fever, + chills, + fatigue and + malaise Respiratory: + cough and + dyspnea; no pain on inspiration Cardiovascular: + dyspnea on exertion; no chest pain and no radiating jaw, neck or arm pain Gastrointestinal: + abdominal pain and + constipation; no bloating, no nausea, no vomiting, no coffee ground emesis and no dysphagia Physical Exam Constitutional: + ill appearing (acute on chronically ill); no acute distress Neck: trachea midline Respiratory: normal respiratory effort; no respiratory distress Cardiovascular: Rate/Rhythm: regular rate and regular rhythm Gastrointestinal (Abdomen): normal bowel sounds, soft, nontender, no hepatosplenomegaly Results & Data ([facility]) Vital Signs (Past 12 Hours) Vital Signs Temp Pulse Pulse Resp BP BP Pulse Ox 07/27/19 13:03 64 16 98 07/27/19 11:56 36.3 C L 82 18 101/53 L 99 07/27/19 07:34 60 07/27/19 07:01 63 20 98 07/27/19 06:53 36.6 C 66 20 112/59 L 100 07/27/19 03:31 36.7 C 69 18 99/62 L 100 Laboratory Results 07/27/19 07/26/19 07/26/19 Range/Units 05:29 Unknown Unknown WBC (4.8-10.8) K/uL RBC (4.7-6.1) M/uL Hgb (14.0-18.0) g/dL Hct (42-52) % MCV (80-100) fL MCH (25-34) pg MCHC (32-36) g/dL RDW Std Deviation (36.4-46.3) fL RDW Coeff of [place] (11.5-14.5) % Plt Count (130-400) K/uL MPV (7.4-10.4) fL Immature Gran % (Auto) % Neut % (Auto) % Lymph % (Auto) % [place] % (Auto) % Eos % (Auto) % Baso % (Auto) % Immature Gran # (Auto) (0.00-0.02) K/uL Neut # (Auto) (1.4-6.5) K/uL Lymph # (Auto) (1.2-3.4) K/uL [place] # (Auto) (0.11-0.59) K/uL Eos # (Auto) (0-0.5) K/uL Baso # (Auto) (0-0.2) K/uL PT (9.0-12.0) Seconds INR (0.9-1.1) APTT (21.0-31.0) Seconds PTT Ratio Sodium (136-145) mmol/L Potassium (3.5-5.1) mmol/L Chloride (98-107) mmol/L Carbon Dioxide (21-32) mmol/L Anion Gap (3-11) BUN (7-18) mg/dl Creatinine (0.6-1.4) mg/dl Est Cr Clr Drug Dosing ml/min Est GFR ( Amer) Est GFR (Non-Af Amer) BUN/Creatinine Ratio (10-20) Glucose (70-99) mg/dl Lactate (0.4-2.0) mmol/L Calcium (8.5-10.1) mg/dl Magnesium (1.8-2.4) mg/dl Total Bilirubin 0.6 (0.2-1) mg/dl Direct Bilirubin < 0.1 (0-0.2) mg/dl AST 95 H (15-37) U/L ALT 99 H (12-78) U/L Alkaline Phosphatase 207 H (45-117) U/L Total Creatine Kinase (39-308) U/L CK-MB (CK-2) (0.5-3.6) ng/ml CK/CKMB % Calc (0-3.0) Troponin I (0-0.045) ng/ml Total Protein 6.6 (6.4-8.2) gm/dl Albumin 3.0 L (3.4-5.0) gm/dl Globulin (2.5-4.0) gm/dl Albumin/Globulin Ratio (0.9-2) Procalcitonin (0-0.5) ng/ml Urine Color Yellow Urine Appearance Clear (Clear) Urine pH 5.0 (4.5-7.5) Ur Specific [place] 1.022 (1.000-1.030) Urine Protein Negative (Negative) Urine Glucose (UA) Negative (Negative) Urine Ketones Negative (Negative) Urine Blood Negative (Negative) Urine Nitrite Negative (Negative) Urine Bilirubin Negative (Negative) Urine Urobilinogen Negative (Negative) Ur Leukocyte Esterase Trace H (Negative) Urine WBC (Auto) 5-10 H (0-5) /hpf Urine RBC (Auto) 0-4 (0-4) /hpf U Hyaline Cast (Auto) 1-5 (0-5) /lpf U Epithel Cells (Auto) 10-20 H (0-5) /lpf Urine Bacteria (Auto) Negative (Negative) Influenza Type A (PCR) Neg for Influ A (Neg) Influenza Type B (PCR) Neg for Influ B (Neg) 07/26/19 07/26/19 07/26/19 Range/Units 22:28 22:09 22:09 WBC (4.8-10.8) K/uL RBC (4.7-6.1) M/uL Hgb (14.0-18.0) g/dL Hct (42-52) % MCV (80-100) fL MCH (25-34) pg MCHC (32-36) g/dL RDW Std Deviation (36.4-46.3) fL RDW Coeff of [place] (11.5-14.5) % Plt Count (130-400) K/uL MPV (7.4-10.4) fL Immature Gran % (Auto) % Neut % (Auto) % Lymph % (Auto) % [place] % (Auto) % Eos % (Auto) % Baso % (Auto) % Immature Gran # (Auto) (0.00-0.02) K/uL Neut # (Auto) (1.4-6.5) K/uL Lymph # (Auto) (1.2-3.4) K/uL [place] # (Auto) (0.11-0.59) K/uL Eos # (Auto) (0-0.5) K/uL Baso # (Auto) (0-0.2) K/uL PT (9.0-12.0) Seconds INR (0.9-1.1) APTT (21.0-31.0) Seconds PTT Ratio Sodium 139 (136-145) mmol/L Potassium 4.4 (3.5-5.1) mmol/L Chloride 105 (98-107) mmol/L Carbon Dioxide 29 (21-32) mmol/L Anion Gap 5.0 (3-11) BUN 28 H (7-18) mg/dl Creatinine 1.41 H (0.6-1.4) mg/dl Est Cr Clr Drug Dosing 35.1 ml/min Est GFR ( Amer) 53.4 Est GFR (Non-Af Amer) 46.1 BUN/Creatinine Ratio 19.8 (10-20) Glucose 122 H (70-99) mg/dl Lactate 1.4 (0.4-2.0) mmol/L Calcium 9.0 (8.5-10.1) mg/dl Magnesium 1.9 (1.8-2.4) mg/dl Total Bilirubin 0.6 (0.2-1) mg/dl Direct Bilirubin (0-0.2) mg/dl AST 138 H (15-37) U/L ALT 107 H (12-78) U/L Alkaline Phosphatase 298 H (45-117) U/L Total Creatine Kinase 44 (39-308) U/L CK-MB (CK-2) 1.2 (0.5-3.6) ng/ml CK/CKMB % Calc 2.7 (0-3.0) Troponin I < 0.015 (0-0.045) ng/ml Total Protein 7.6 (6.4-8.2) gm/dl Albumin 3.5 (3.4-5.0) gm/dl Globulin 4.1 H (2.5-4.0) gm/dl Albumin/Globulin Ratio 0.9 (0.9-2) Procalcitonin 0.38 (0-0.5) ng/ml Urine Color Urine Appearance (Clear) Urine pH (4.5-7.5) Ur Specific [place] (1.000-1.030) Urine Protein (Negative) Urine Glucose (UA) (Negative) Urine Ketones (Negative) Urine Blood (Negative) Urine Nitrite (Negative) Urine Bilirubin (Negative) Urine Urobilinogen (Negative) Ur Leukocyte Esterase (Negative) Urine WBC (Auto) (0-5) /hpf Urine RBC (Auto) (0-4) /hpf U Hyaline Cast (Auto) (0-5) /lpf U Epithel Cells (Auto) (0-5) /lpf Urine Bacteria (Auto) (Negative) Influenza Type A (PCR) (Neg) Influenza Type B (PCR) (Neg) 02/10/20 02/10/20 Range/Units 22:09 22:09 WBC 6.49 (4.8-10.8) K/uL RBC 4.27 L (4.7-6.1) M/uL Hgb 12.8 L (14.0-18.0) g/dL Hct 37.6 L (42-52) % MCV 88.1 (80-100) fL MCH 30.0 (25-34) pg MCHC 34.0 (32-36) g/dL RDW Std Deviation 45.3 (36.4-46.3) fL RDW Coeff of [place] 14.1 (11.5-14.5) % Plt Count 122 L (130-400) K/uL MPV 9.2 (7.4-10.4) fL Immature Gran % (Auto) 0.2 % Neut % (Auto) 84.7 % Lymph % (Auto) 7.1 % [place] % (Auto) 5.5 % Eos % (Auto) 2.3 % Baso % (Auto) 0.2 % Immature Gran # (Auto) 0.01 (0.00-0.02) K/uL Neut # (Auto) 5.50 (1.4-6.5) K/uL Lymph # (Auto) 0.46 L (1.2-3.4) K/uL [place] # (Auto) 0.36 (0.11-0.59) K/uL Eos # (Auto) 0.15 (0-0.5) K/uL Baso # (Auto) 0.01 (0-0.2) K/uL PT 10.3 (9.0-12.0) Seconds INR 1.0 (0.9-1.1) APTT 22.5 (21.0-31.0) Seconds PTT Ratio 0.8 Sodium (136-145) mmol/L Potassium (3.5-5.1) mmol/L Chloride (98-107) mmol/L Carbon Dioxide (21-32) mmol/L Anion Gap (3-11) BUN (7-18) mg/dl Creatinine (0.6-1.4) mg/dl Est Cr Clr Drug Dosing ml/min Est GFR ( Amer) Est GFR (Non-Af Amer) BUN/Creatinine Ratio (10-20) Glucose (70-99) mg/dl Lactate (0.4-2.0) mmol/L Calcium (8.5-10.1) mg/dl Magnesium (1.8-2.4) mg/dl Total Bilirubin (0.2-1) mg/dl Direct Bilirubin (0-0.2) mg/dl AST (15-37) U/L ALT (12-78) U/L Alkaline Phosphatase (45-117) U/L Total Creatine Kinase (39-308) U/L CK-MB (CK-2) (0.5-3.6) ng/ml CK/CKMB % Calc (0-3.0) Troponin I (0-0.045) ng/ml Total Protein (6.4-8.2) gm/dl Albumin (3.4-5.0) gm/dl Globulin (2.5-4.0) gm/dl Albumin/Globulin Ratio (0.9-2) Procalcitonin (0-0.5) ng/ml Urine Color Urine Appearance (Clear) Urine pH (4.5-7.5) Ur Specific [place] (1.000-1.030) Urine Protein (Negative) Urine Glucose (UA) (Negative) Urine Ketones (Negative) Urine Blood (Negative) Urine Nitrite (Negative) Urine Bilirubin (Negative) Urine Urobilinogen (Negative) Ur Leukocyte Esterase (Negative) Urine WBC (Auto) (0-5) /hpf Urine RBC (Auto) (0-4) /hpf U Hyaline Cast (Auto) (0-5) /lpf U Epithel Cells (Auto) (0-5) /lpf Urine Bacteria (Auto) (Negative) Influenza Type A (PCR) (Neg) Influenza Type B (PCR) (Neg)
--- NOTE | 2019-07-27 14:02 | Electrocardiogram Report ---
Test Reason : Blood Pressure : / mmHG Vent. Rate : 098 BPM Atrial Rate : 098 BPM P-R Int : 134 ms QRS Dur : 156 ms QT Int : 424 ms P-R-T Axes : 054 268 070 degrees QTc Int : 541 ms Atrial-sensed ventricular-paced rhythm Biventricular pacemaker detected Abnormal ECG When compared with ECG of 09-MAR-2018 12:32, Vent. rate has increased BY 32 BPM Confirmed by Aguilar Valdes ([id number]) on 07/27/2019 2:02:36 PM Referred By: REFERRED SELF Confirmed By:Aguilar Valdes
--- NOTE | 2019-07-27 14:38 | Hospitalist Progress Note ---
Date of Service July 27, 2019 Assessment & Plan (1) Hypoxia: presented with SOB and cough /hypoxia no evidence of infiltrate noted on Chest xray no wheeze noted -IV steroids D/abbie concern for possible aspiration ( chronic dysphagia given hx of Parkinsons disease ) cont empiric abx IV zosyn follow cultures respiratory status improved GRAM NEGATIVE BACTEREMIA : 2 sets of blood cultures : gram negative bacilli /organism isolation and sensitivity pending cont IV zosyn ID eval requested need to r/o hepatobiliary infection pathology given elevated LFT's ( although pt reports of resolution of abdominal Pain ) GI eval requested /discussion regarding elevated LFT's as below speech eval requested to assess aspiration risk , appreciate input -regular diet with alternation between solid and liquid, aspiration precaution scheduled for VFSS in am pt at present requiring supplemental 02( does not have home 02 ) he reports need to utilize 's 02 occasionally for SOB /PEDRO Cxray shows chronic fibrosis /interstial changes will benefit with 2 step pulse oximetry test for home 02 requirement prior to DC (2) Parkinson's disease: no worsening of symptom at baseline pt ambulates without any assistive device PT/OT eval prior to discharge speech eval as outlined above (3) Elevated LFTs: LFT' elevated s/p cholecystectomy years ago, retained biliary sludge s/p ERCP w/ balloon sweep and sphincterotomy in 2008. Blood cultures gram negative bacilli, pt already on IV Zosyn liver USG : non acute change /portal vein USG -non diagnostic given overlying bowel gas appreciate input from GI , MRCP can not be done for presence of AICD ( placed approx 5 yrs back , not sure about MRI compatibility ) - Keep NPO for suspected ERCP trend LFT's - (4) 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 defibrillator (ICD) and pacemaker: Admission and Anticipated Discharge Date Admission Date: July 27, 2019 Subjective Pt reports of feeling better cough has improved ,no fever or chills requiring 2 L o2 via nasal canula ( not on home 02 ) abdominal pain and discomfort has resolved no nausea/vomiting had frequent bowel movement ( 3 times already ) pt reports his multiple BMs a day has been chronic, does not feel symptom has worsen no blood in stool Review of Systems Review of Systems: All systems reviewed & are unremarkable except as noted in HPI & below Respiratory: + cough; no dyspnea, no dyspnea on exertion, no pain with cough a nd no wheezing Cardiovascular: no chest pain, no dyspnea, no orthopnea and no lightheadedness Gastrointestinal: no abdominal pain, no nausea, no vomiting, no change in bowel habits and no diarrhea/loose stools (chronic ) Genitourinary: no dysuria, no urinary frequency and no urinary hesitancy Physical Exam Constitutional: WD/WN, vitals as above no acute distress Eyes: PERRL, conjunctivae normal, anicteric sclerae ENMT: external ear and nose normal, oropharynx normal Neck: trachea midline, no thyromegaly Respiratory: normal respiratory effort and + cough; no respiratory distress Auscultation: + wheezes Cardiovascular: RRR, no murmur, no edema Gastrointestinal (Abdomen): Inspection/Auscultation: normal bowel sounds Percussion/Palpation: abdomen soft; abdomen nontender and no ascites Musculoskeletal: no cyanosis or clubbing, extremities motor strength 5/5 Skin: no rashes, warm and dry Neurologic: PERRL, EOMI, accommodation nl, no face palsy, no dysarthria Psychiatric: A+Ox3, euthymic affect Results & Data ([facility]) Vital Signs (Past 12 Hours) Vital Signs Temp Pulse Pulse Resp BP BP Pulse Ox 07/27/19 13:03 64 16 98 07/27/19 11:56 36.3 C L 82 18 101/53 L 99 07/27/19 07:34 60 07/27/19 07:01 63 20 98 07/27/19 06:53 36.6 C 66 20 112/59 L 100 07/27/19 03:31 36.7 C 69 18 99/62 L 100
--- NOTE | 2019-07-27 16:57 | Anesthesiology Consultation ---
Date of Service July 27, 2019 Assessment & Plan (1) Encounter for pre-operative examination: Chart Review Chart Review: Acceptable Risk for Surgery and Patient NOT seen in Pre Admission Testing Patient does not have any family members here in hospital. His had been in but does not drive and unsure if she is able to consent. Listed POA contact is his daughter, Toya Julio: [phone] to obtain phone consent. Consults Requested none History Surgery Operation Date: 07/28/19 09:40 Proposed Procedures p Endoscopic Retrograde Cholangiopancreatogram - Ean Chavez MD Height/Weight Height: 5 ft 5 in Weight: 69.9 kg Allergies Allergy/AdvReac Type Severity Reaction Status Date / Time haloperidol Allergy Unknown LOSS OF Verified 07/26/19 23:36 VISION Medications Home Medications Medication Instructions Recorded Confirmed Last Taken carbidopa-levodopa 1 tab PO TID 03/09/18 07/26/19 07/26/19 docusate sodium 100 mg PO BID 03/09/18 07/26/19 07/26/19 felodipine 2.5 mg PO QPM 03/09/18 07/26/19 07/26/19 furosemide 20 mg PO MOWEFR 03/09/18 07/26/19 07/26/19 levothyroxine 88 mcg PO DAILY 03/09/18 07/26/19 07/26/19 lisinopril 2.5 mg PO QAM 03/09/18 07/26/19 07/26/19 metoprolol succinate 50 mg PO DAILY 03/09/18 07/26/19 07/26/19 nitroglycerin 0.4 mg SUBLINGUAL DIRECTED PRN 03/09/18 07/26/19 Unknown nortriptyline 100 mg PO HS 03/09/18 07/26/19 03/08/18 potassium chloride 10 meq PO DAILY 03/09/18 07/26/19 07/26/19 ranitidine HCl 300 mg PO HS 03/09/18 07/26/19 Unknown selegiline HCl 5 mg PO BID 03/09/18 07/26/19 07/26/19 sertraline 100 mg PO DAILY 03/09/18 07/26/19 07/26/19 simvastatin 40 mg PO HS 03/09/18 07/26/19 03/08/18 aspirin 81 mg tablet,delayed 81 mg PO DAILY 03/18/19 07/26/19 07/26/19 release ipratropium 0.5 mg-albuterol 3 mg 3 ml INH UD 03/18/19 07/26/19 07/26/19 (2.5 mg base)/3 mL nebulization soln ketoconazole 2 % topical cream 1 appln TOP HS 03/18/19 07/26/19 Unknown omeprazole 40 mg capsule,delayed 40 mg PO QAM 03/18/19 07/26/19 07/26/19 release furosemide 20 mg PO DAILY PRN 07/26/19 07/26/19 Unknown nitroglycerin 1 patch TRANSDERMAL QAM 07/26/19 07/26/19 Unknown Active Medications Generic Name Dose Route Start Last Admin Trade Name Freq PRN Reason Stop Dose Admin Aspirin 81 mg 07/27/19 09:00 07/27/19 08:09 Ecotrin Ectab PO 08/26/19 08:59 81 mg DAILY ANITA Administration Carbidopa/Levodopa 1 tab 07/27/19 09:00 07/27/19 13:42 Sinemet 25/100 Mg PO 08/26/19 08:59 1 tab TID ANITA Administration Docusate Sodium 100 mg 07/27/19 09:00 07/27/19 08:09 Colace PO 08/26/19 08:59 100 mg BID ANITA Administration Heparin Sodium (Porcine) 5,000 units 07/27/19 06:00 07/27/19 13:42 Heparin Sodium (Porcine) SQ 08/26/19 05:59 5,000 units Q8 ANITA Administration Piperacillin Sod/Tazobactam 115 mls @ 28.75 mls/hr 07/27/19 06:00 07/27/19 13:42 Sod 3.375 gm/ Dextrose IV 08/03/19 05:59 28.8 mls/hr Q8H ANITA Administration Protocol Ipratropium [place] 0.5 mg 07/27/19 07:00 07/27/19 13:00 Atrovent 0.02% 0.5mg/2.5ml INH 08/26/19 06:59 0.5 mg Q6R ANITA Administration Levalbuterol HCl 1.25 mg 07/27/19 07:00 07/27/19 13:00 Xopenex 1.25mg/0.5ml Neb INH 08/26/19 06:59 1.25 mg Q6R ANITA Administration Levothyroxine Sodium 88 mcg 07/27/19 06:30 07/27/19 05:45 Synthroid PO 08/26/19 06:29 88 mcg DAILYBB ANITA Administration Lisinopril 2.5 mg 07/27/19 09:00 07/27/19 08:10 Zestril PO 08/26/19 08:59 2.5 mg QAM ANITA Administration Metoprolol Succinate 50 mg 07/27/19 09:00 07/27/19 08:10 Toprol Xl PO 08/26/19 08:59 50 mg DAILY ANITA Administration Miscellaneous 1 ea 07/27/19 01:45 07/27/19 01:56 Remove Nitro-Dur Patch N/A 08/26/19 01:44 1 ea DAILY@2100 ANITA Administration Nitroglycerin 1 patch 07/27/19 09:00 07/27/19 08:09 Nitro-Dur 0.4mg/Hr TD 08/26/19 08:59 1 patch QAM ANITA Administration Pantoprazole Sodium 40 mg 07/27/19 09:00 07/27/19 08:10 Protonix PO 08/26/19 08:59 40 mg QAM ANITA Administration Potassium Chloride 10 meq 07/27/19 09:00 07/27/19 08:09 Klor-Con M10 PO 08/26/19 08:59 10 meq DAILY ANITA Administration Selegiline HCl 5 mg 07/27/19 09:00 07/27/19 08:09 Eldepryl PO 08/26/19 08:59 5 mg BID ANITA Administration Sertraline HCl 100 mg 07/27/19 09:00 07/27/19 08:10 Zoloft PO 08/26/19 08:59 100 mg DAILY ANITA Administration Past Medical History Medical History (Updated 07/27/19 @ 16:54 by Denny Fried MD) Aortic stenosis, moderate CAD (coronary artery disease) (Chronic) 2001 - S/P CABG x 3 2006 -cardiac catheterization demonstrated severe diffuse disease CKD (chronic kidney disease), stage III (Chronic) COPD (chronic obstructive pulmonary disease) SOB, hx/o COPD. Nebulizers and steroids this admission. Supplemental oxygen. Depression (Chronic) Dyslipidemia (Chronic) GERD (gastroesophageal reflux disease) (Chronic) Hypertension (Chronic) Hypothyroidism (Chronic) Ischemic cardiomyopathy (Chronic) EF 50% per hospitalist history and physical. 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 ?Mild dementia Past Surgical History Surgical History H/O bilateral inguinal hernia repair (Chronic) Hx of cholecystectomy (Chronic) S/P CABG x 3 (Chronic) Hx/o EGD with biopsy, Pacer/Defib. Social History Smoking Status: Former smoker tobacco type: smokeless tobacco Do You Dip or Chew Tobacco: Yes Hx Alcohol Use: No Hx Substance Use: No substance use type: does not use Physical Exam Vital Signs Last Vital Signs Temp 36.6 C 07/27/19 16:18 Pulse 62 07/27/19 16:18 Resp 20 07/27/19 16:18 BP 103/57 L 07/27/19 16:18 Pulse Ox 96 07/27/19 16:18 Testing Laboratory Results 07/26/19 22:09 07/26/19 22:09 PT 10.3 Seconds (9.0-12.0) 07/26/19 22:09 INR 1.0 (0.9-1.1) 07/26/19 22:09 APTT 22.5 Seconds (21.0-31.0) 07/26/19 22:09 Urine Color Yellow 07/26/19 Unknown Urine Appearance Clear (Clear) 07/26/19 Unknown Urine pH 5.0 (4.5-7.5) 07/26/19 Unknown Ur Specific [place] 1.022 (1.000-1.030) 07/26/19 Unknown Urine Protein Negative (Negative) 07/26/19 Unknown Urine Glucose (UA) Negative (Negative) 07/26/19 Unknown Urine Ketones Negative (Negative) 07/26/19 Unknown Urine Nitrite Negative (Negative) 07/26/19 Unknown Ur Leukocyte Esterase Trace (Negative) H 07/26/19 Unknown Urine WBC (Auto) 5-10 /hpf (0-5) H 07/26/19 Unknown Urine RBC (Auto) 0-4 /hpf (0-4) 07/26/19 Unknown U Hyaline Cast (Auto) 1-5 /lpf (0-5) 07/26/19 Unknown U Epithel Cells (Auto) - /lpf (0-5) H 07/26/19 Unknown Urine Bacteria (Auto) Negative (Negative) 07/26/19 Unknown 07/26/19 22:23 Aerobic Blood Culture - Preliminary Blood Gram negative bacilli Anaerobic Blood Culture - Preliminary Gram negative bacilli 07/26/19 22:28 Anaerobic Blood Culture - Preliminary Blood Gram negative bacilli Electrocardiogram Date: 07/26/19 Atrial-sensed ventricular-paced rhythm Biventricular pacemaker detected Abnormal ECG When compared with ECG of 09-MAR-2018 12:32, Vent. rate has increased BY 32 BPM Confirmed by Aguilar Valdes ([id number]) on 07/27/2019 2:02:36 PM. HR 98 Chest X-Ray Date: 07/26/19 XR chest 1V portable HISTORY: 84 years-old Male SEPSIS acute sepsis COMPARISON: Chest radiographs 03/10/2018, chest CT 03/09/2018. TECHNIQUE: Portable AP view of the chest FINDINGS: Cardiac silhouette is enlarged, unchanged. Prior median sternotomy and CABG. Left subclavian pacer/AICD redemonstrated. Chronic reticular opacities. Ill- defined left basilar densities. No pneumothorax, large pleural effusion or overt pulmonary edema. Healed remote right-sided rib fractures. Left-sided pleural calcifications with chronic left costophrenic angle blunting. Degenerative changes of the shoulders and spine. IMPRESSION: 1. Cardiomegaly without overt pulmonary edema. 2. Chronic bilateral reticular opacities suggest fibrosis. 3. Atelectasis/scarring of the left lung base with pleural calcifications redemonstrated.
[2019-07-27 17:08] LABS: BUN Creatinine Ratio 23.3 (10-20); Calcium 8.3 mg/dl (8.5-10.1); Est GFR (African American) 44.1; Est GFR (Non-African American) 38.1; Potassium 4.3 mmol/L (3.5-5.1)
--- NOTE | 2019-07-27 22:37 | Ultrasound Report ---
US liver CLINICAL HISTORY: 84 years-old Male presenting with elevated LFTs, + blood cultures. TECHNIQUE: Real-time grayscale and limited color Doppler ultrasound imaging of the abdomen limited to the right upper quadrant was performed. COMPARISON: CT from earlier today. FINDINGS: Pancreas: Visualized portions of the pancreatic head and body normal. Liver: Normal echogenicity and echotexture. The liver measures 15.4 cm in maximal sagittal dimension. No sonographic evidence of hepatic mass. Main portal vein patent with normal directional flow. Biliary: No intrahepatic biliary ductal dilatation. Hyperechogenic branching foci within the liver pa renchyma consistent with pneumobilia, better appreciated on recent CT. Common bile duct measures up t o 4 mm in diameter. Gallbladder: Surgically absent. Right kidney: Normal in appearance without evidence of hydronephrosis. Ascites: None. Other: None. IMPRESSION: 1. Status post cholecystectomy. 2. 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 3. No sonographic evidence of acute intra-abdominal pathology. ACT 112: Negative or not required by law. Electronically signed by: Aiden Wilson M.D. 07/27/2019 10:36 PM
[2019-07-27] MEDS: KETOCONAZOLE 2% CR 15 GM TUBE EXT SCH (22:39)
--- NOTE | 2019-07-27 22:39 | Ultrasound Report ---
US duplex mesenteric CLINICAL HISTORY: 84 years-old Male presenting with abd pain, elevated lft. TECHNIQUE: Real-time grayscale and color and spectral Doppler ultrasound imaging of the aorta and mes enteric vessels was performed. COMPARISON: Contrast-enhanced CT of abdomen and pelvis from 03/09/2018. FINDINGS: Extensive bowel gas in the abdomen prevents adequate interrogation of the aorta and the major branch vessels. Aorta: Unable to interrogate. Celiac axis: Unable to interrogate. Hepatic artery: Unable to interrogate. Splenic artery: Unable to interrogate. Superior mesenteric artery: Unable to interrogate. Inferior mesenteric artery: Unable to interrogate. Reference ranges: Celiac artery: PSV ? 240 cm/s suggests stenosis ? 50%; PSV ? 320 cm/s suggests stenosis ? 70%. Superior mesenteric artery: PSV ? 295 cm/s suggests stenosis ? 50%; PSV ? 400 cm/s suggests stenosis ? 70%. IMPRESSION: 1. Nondiagnostic examination due to bowel gas obscuration of the mesenteric vasculature. ACT 112: Negative or not required by law. Electronically signed by: Aiden Wilson M.D. 07/27/2019 10:38 PM
[2019-07-27] MEDS: NORTRIPTYLINE HCL 25 MG CAP PO SCH (22:42)
[2019-07-27] MEDS: FELODIPINE 2.5 MG TABCR PO SCH (22:43)
[2019-07-27] MEDS: SIMVASTATIN 40 MG TAB PO SCH (22:45)
[2019-07-28] MEDS: IPRATROPIUM BROMIDE NEB SOLN 0.02% 2.5 ML VIAL INH SCH ×4 (01:21→19:34)
[2019-07-28] MEDS: LEVALBUTEROL 1.25MG/0.5ML NEB INH SCH ×4 (01:21→19:34)
[2019-07-28 05:39] LABS: Eosinophils # (auto) 0.01 K/uL (0-0.5); Eosinophils % (auto) 0.1 %; Hematocrit (blood only) 32.4 % (42-52); Hemoglobin 10.8 g/dL (14.0-18.0); Immature Granulocytes # (auto) 0.02 K/uL (0.00-0.02); Immature Granulocytes % (auto) 0.2 %; Lymphocytes # (auto) 0.66 K/uL (1.2-3.4); Lymphocytes % (auto) 7.9 %; Mean Corpuscular Hemoglobin 29.7 pg (25-34); Mean Corpuscular Hgb Conc 33.3 g/dL (32-36); Mean Platelet Volume 9.7 fL (7.4-10.4); Monocytes # (auto) 0.59 K/uL (0.11-0.59); Neutrophils % (auto) 84.8 %; Platelet Count 128 K/uL (130-400); RDW Coefficient of Variation 14.6 % (11.5-14.5); RDW Standard Deviation 47.5 fL (36.4-46.3); Red Blood Count 3.64 M/uL (4.7-6.1); White Blood Count 8.38 K/uL (4.8-10.8)
[2019-07-28] MEDS: HEPARIN SOD 5,000 UNIT/0.5 ML VIAL SQ SCH ×2 (06:03→14:15)
[2019-07-28 06:05] LABS: Albumin Level 2.9 gm/dl (3.4-5.0); BUN Creatinine Ratio 26.7 (10-20); Bilirubin Direct 0.1 mg/dl (0-0.2); Calcium 8.5 mg/dl (8.5-10.1); Est GFR (African American) 44.1; Est GFR (Non-African American) 38.1; Magnesium 2.3 mg/dl (1.8-2.4); Potassium 4.4 mmol/L (3.5-5.1)
[2019-07-28] MEDS: LEVOTHYROXINE SODIUM 88 MCG TABLET PO SCH (06:06)
[2019-07-28 06:11] LABS: Bilirubin,Total 0.4 mg/dl (0.2-1); Total Protein 6.3 gm/dl (6.4-8.2)
[2019-07-28] MEDS: PIPERACILLIN/TAZOBACTAM 3.375 GM in DEXTROSE 5% 100 ML IV SCH ×3 (06:15→21:51)
[2019-07-28 08:14] LABS: Hepatitis B Surface Antigen Neg (Neg)
--- NOTE | 2019-07-28 08:27 | Gastroenterology Progress Note ---
Date of Service July 28, 2019 Assessment & Plan (1) Elevated LFTs: 84 year old male HTN, dyslipidemia, hypothyroidism, CKD-3, ischemic cardiomyopathy, chronic kidney disease stage III, systolic CHF, mitral regurgitation, moderate aortic stenosis, GERD, PD, CAD status post CABG, biventricular defibrillator, JOVITA admitted through the ED w/ abdominal pain, elevated LFTs, SOB and positive blood cultures. He does have a history of cholecystectomy years ago, retained biliary sludge s/p ERCP w/ balloon sweep and sphincterotomy in 2008. Blood cultures gram negative bacilli, transaminases trending down, biliary imaging non-diagnostic - Keep NPO for suspected ERCP - Will touch base with biliary team to discuss updates - Follow blood cultures - Trend LFTs - Agree w/ IV ABX for biliary coverage - IV hydration for maintenance fluid - Closely watch for signs of volume overload Thank you for allowing us to participate in the care of this patient. Please call with any acute changes, questions or concerns. Please see addendum below with additional recommendation from my supervising physician. Admission and Anticipated Discharge Date Admission Date: July 27, 2019 Supervising Physician Co-Signing Physician Notes I have seen and examined the patient and discussed the management with ELEAZAR [place]. No clinical change in symptoms. Pe unchanged from yesterday Labs/imaging reviewed Potential ERCP today after review with the biliary doctor. Subjective pt was seen and evaluated, chart reviewed ABD US nondiagnostic LFTs slightly improved + blood cultures Offers no complaints Review of Systems Constitutional: no fever, no chills and no fatigue Respiratory: no cough and no dyspnea Cardiovascular: no chest pain and no radiating jaw, neck or arm pain Gastrointestinal: no abdominal pain, no coffee ground emesis, no blood in stools and no melena Physical Exam Constitutional: + ill appearing (acute on chronically ill); no acute distress Neck: trachea midline Respiratory: normal respiratory effort; no respiratory distress Cardiovascular: Rate/Rhythm: regular rate and regular rhythm Gastrointestinal (Abdomen): normal bowel sounds, soft, nontender, no hepatosplenomegaly Results & Data ([facility]) Vital Signs (Past 12 Hours) Vital Signs Temp Pulse Pulse Resp BP BP Pulse Ox 07/28/19 07:23 36.4 C L 65 16 116/66 92 07/28/19 07:00 69 18 96 07/28/19 04:37 78 07/28/19 03:19 36.4 C L 74 18 112/66 95 07/28/19 01:21 65 16 96 07/27/19 22:48 36.6 C 60 19 120/60 98
[2019-07-28 08:43] LABS: Hepatitis C IgG 13Yrs+Old_Rflx Neg (Neg)
[2019-07-28] MEDS: NITROGLYCERIN 0.4 MG/HR PATCH TD SCH (09:49)
--- NOTE | 2019-07-28 11:27 | Infectious Disease Consult ---
Date of Consultation July 28, 2019 Assessment & Plan (1) Gram negative sepsis: continue zosyn for now, repeat cultures, follow final results. LFTs improved History of Present Illness Attending Physician: Jared Gary MD pt admitted with sob and abd pain, found to elevated LFTs, ct and ultrasound negative, s/p sergio. LFTs now normal. pain resolved. feeling much better. afebrile. initial blood cultures growing gnr, ID pending, no repeat cultures done. on zosyn, tolerating well. wbc 6, ua negative. cxr negative. creat 1.4 Allergies Allergy/AdvReac Type Severity Reaction Status Date / Time haloperidol Allergy Unknown LOSS OF Verified 07/26/19 23:36 VISION Home Medications Home Medications Medication Instructions Recorded Confirmed Type carbidopa-levodopa 1 tab PO TID 03/09/18 07/26/19 History docusate sodium 100 mg PO BID 03/09/18 07/26/19 History felodipine 2.5 mg PO QPM 03/09/18 07/26/19 History furosemide 20 mg PO MOWEFR 03/09/18 07/26/19 History levothyroxine 88 mcg PO DAILY 03/09/18 07/26/19 History lisinopril 2.5 mg PO QAM 03/09/18 07/26/19 History metoprolol succinate 50 mg PO DAILY 03/09/18 07/26/19 History nitroglycerin 0.4 mg SUBLINGUAL DIRECTED PRN 03/09/18 07/26/19 History nortriptyline 100 mg PO HS 03/09/18 07/26/19 History potassium chloride 10 meq PO DAILY 03/09/18 07/26/19 History ranitidine HCl 300 mg PO HS 03/09/18 07/26/19 History selegiline HCl 5 mg PO BID 03/09/18 07/26/19 History sertraline 100 mg PO DAILY 03/09/18 07/26/19 History simvastatin 40 mg PO HS 03/09/18 07/26/19 History aspirin 81 mg tablet,delayed 81 mg PO DAILY 03/18/19 07/26/19 History release ipratropium 0.5 mg-albuterol 3 mg 3 ml INH UD 03/18/19 07/26/19 History (2.5 mg base)/3 mL nebulization soln ketoconazole 2 % topical cream 1 appln TOP HS 03/18/19 07/26/19 History omeprazole 40 mg capsule,delayed 40 mg PO QAM 03/18/19 07/26/19 History release furosemide 20 mg PO DAILY PRN 07/26/19 07/26/19 History nitroglycerin 1 patch TRANSDERMAL QAM 07/26/19 07/26/19 History Patient History Medical History Aortic stenosis, moderate CAD (coronary artery disease) (Chronic) 2001 - S/P CABG x 3 2006 -cardiac catheterization demonstrated severe diffuse disease CKD (chronic kidney disease), stage III (Chronic) COPD (chronic obstructive pulmonary disease) SOB, hx/o COPD. Nebulizers and steroids this admission. Supplemental oxygen. Depression (Chronic) Dyslipidemia (Chronic) GERD (gastroesophageal reflux disease) (Chronic) Hypertension (Chronic) Hypothyroidism (Chronic) Ischemic cardiomyopathy (Chronic) EF 50% per hospitalist history and physical. 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) Splenic lesion Surgical History H/O bilateral inguinal hernia repair (Chronic) Hx of cholecystectomy (Chronic) S/P CABG x 3 (Chronic) Social History Preferred Language: Slovak Communication Ability: Effective Visual Impairment: No Limitations Hearing Ability: Normal Forms Examiner Required: No Beliefs That Will Affect Care: None Current Living Situation: Spouse Current Living Situation Comment: Other Information That Helps Us Care for You: No Feels Safe at Home: Yes Safety Concerns: Feels Safe At This Time Smoking Status: Former smoker Tobacco Type: smokeless tobacco ; Do You Dip or Chew Tobacco: Yes ; Second Hand Exposure: No ; Tobacco Cessation Education Requested by Patient: No Hx Alcohol Use: No Hx Substance Use: No Review of Systems Review of Systems: All systems reviewed & are unremarkable except as noted in HPI & below Physical Exam Constitutional: WD/WN, vitals as above Eyes: PERRL, conjunctivae normal, anicteric sclerae ENMT: external ear and nose normal, oropharynx normal Neck: normal visual inspection Respiratory: normal respiratory effort, lungs clear to auscultation Cardiovascular: RRR, no murmur, no edema Gastrointestinal (Abdomen): normal bowel sounds, soft, nontender, no hepatosplenomegaly Musculoskeletal: no cyanosis or clubbing, extremities motor strength 5/5 Skin: no rashes, warm and dry Psychiatric: A+Ox3, euthymic affect Results & Data ([facility]) Vital Signs (Past 12 Hours) Vital Signs Temp Pulse Pulse Resp BP Pulse Ox 07/28/19 08:26 66 07/28/19 07:23 36.4 C L 65 16 116/66 92 07/28/19 07:00 69 18 96 07/28/19 04:37 78 07/28/19 03:19 36.4 C L 74 18 112/66 95 07/28/19 01:21 65 16 96 Laboratory Results Microbiology 07/26/19 22:23 Blood Aerobic Blood Culture - Preliminary Gram negative bacilli 07/26/19 22:23 Blood Anaerobic Blood Culture - Preliminary Gram negative bacilli Gram negative bacilli#2 07/26/19 22:28 Blood Aerobic Blood Culture - Preliminary No growth in Aerobic bottle after 24 hours. 07/26/19 22:28 Blood Anaerobic Blood Culture - Preliminary Gram negative bacilli PG Care Time/CCT Total # of Minutes Spent Total Time Spent with Patient: Total time spent is greater than 50% in coordination of care (as documented) at patient's floor/unit and/or counseling patient: Coding Level of Care Code 97304 Inpt Consult Level 4 Diagnoses Gram negative sepsis A41.50
--- NOTE | 2019-07-28 14:20 | History & Physical Bridge Note ---
Date of Service July 28, 2019 History & Physical Bridge Note I have examined the patient, reviewed the History & Physical and in the interval since the performance of the History & Physical I have noted the following changes of clinical significance: no changes noted ERCP today
[2019-07-28] MEDS: SELEGILINE HCL 5 MG TAB PO SCH ×2 (14:21→21:48)
[2019-07-28] MEDS: ASPIRIN 81 MG ECTAB PO SCH (14:21)
[2019-07-28] MEDS: CARBIDOPA/LEVODOPA 25/100MG TAB PO SCH ×3 (14:21→21:50)
[2019-07-28] MEDS: PANTOprazole 40 MG TAB PO SCH (14:21)
[2019-07-28] MEDS: DOCUSATE SODIUM 100 MG CAP PO SCH ×2 (14:21→21:47)
[2019-07-28] MEDS: POTASSIUM CHLORIDE 10 MEQ TABCR PO SCH (14:21)
[2019-07-28] MEDS ORDERED: fentaNYL citrate 100 MCG/2 ML VIAL IV PRN (15:12)
[2019-07-28] MEDS ORDERED: ePHEDrine sulfate 50 MG/ML AMP IV PRN (15:12)
[2019-07-28] MEDS ORDERED: ONDANSETRON INJ 2 MG/ML 2 ML VIAL IV PRN (15:12)
[2019-07-28] MEDS ORDERED: ATROPINE SULFATE 0.1 MG/ML 10ML SYR IV PRN (15:12)
[2019-07-28] MEDS ORDERED: INDOMETHACIN 50 MG SUPP PR ONE (15:16)
[2019-07-28] MEDS ORDERED: fentaNYL citrate 100 MCG/2 ML VIAL ONE (15:17)
[2019-07-28] MEDS ORDERED: INDOMETHACIN 50 MG SUPP PR STA (15:29)
[2019-07-28] MEDS ORDERED: PROPOFOL IV EMULSION 10 MG/ML 20 ML VIAL IV ONE (15:51)
[2019-07-28] MEDS ORDERED: SUCCINYLCHOLINE CHLORIDE 20 MG/ML 10 ML VIAL ONE (15:51)
[2019-07-28] MEDS ORDERED: LIDOCAINE HCL 2% 2 ML VIAL/AMP(20MG/ML) INFIL ONE (15:51)
[2019-07-28] MEDS ORDERED: ONDANSETRON INJ 2 MG/ML 2 ML VIAL ONE (15:51)
[2019-07-28] MEDS ORDERED: PHENYLEPHRINE HCL 10 MG/ML VIAL ONE (15:51)
--- NOTE | 2019-07-28 16:12 | Operative Report ---
Post Operative Report Pre & Post Diagnosis Operation Date: 07/28/19 09:40 Pre-Op Diagnosis: Sepsis, cholangitis Post-Op Diagnosis: Sepsis, cholangitis I identified the patient and participated in the time-out.: Yes Procedure Operation Date: 07/28/19 09:40 Actual Procedures p Endoscopic Retrograde Cholangiopancreatogram - Ean Chavez MD Surgeon Ean Chavez MD Paint Prep Technician None Estimated Blood Loss 0 Findings See Below (Large CBD stone removed) Specimens None Description of Procedure ERCP I attest to the content of the Intraoperative Record and any orders documented therein. Any exceptions are noted below.
--- NOTE | 2019-07-28 16:53 | Anesthesiology Progress Note ---
Date of Service July 28, 2019 Anesthesia Post Procedure Vital Signs Vital Signs: Temp Pulse Pulse Pulse Resp BP BP 07/28/19 16:50 66 12 123/68 07/28/19 16:40 70 17 124/66 07/28/19 16:30 73 16 137/66 07/28/19 16:21 37.1 C 78 14 137/72 07/28/19 14:48 36.8 C 77 20 123/63 07/28/19 14:43 36.8 C 77 20 123/64 07/28/19 14:33 36.7 C 74 20 122/64 07/28/19 13:02 65 18 07/28/19 11:27 36.5 C 66 16 105/55 L 07/28/19 08:26 66 07/28/19 07:23 36.4 C L 65 16 116/66 07/28/19 07:00 69 18 07/28/19 04:37 78 07/28/19 03:19 36.4 C L 74 18 112/66 07/28/19 01:21 65 16 07/27/19 22:48 36.6 C 60 19 07/27/19 20:17 36.7 C 65 19 96/53 L BP Pulse Ox 07/28/19 16:50 97 07/28/19 16:40 97 07/28/19 16:30 98 07/28/19 16:21 98 07/28/19 14:48 96 07/28/19 14:43 96 07/28/19 14:33 94 07/28/19 13:02 92 07/28/19 11:27 94 07/28/19 08:26 07/28/19 07:23 92 07/28/19 07:00 96 07/28/19 04:37 07/28/19 03:19 95 07/28/19 01:21 96 07/27/19 22:48 120/60 98 07/27/19 20:17 97 Transfer of Care Handoff Completed per policy Notes Mental Status: alert / awake / arousable and participated in evaluation Patient Amnestic to Procedure: Yes Nausea / Vomiting: adequately controlled Pain: adequately controlled Airway Patency, RR, SpO2: stable & adequate BP & HR: stable & adequate Hydration State: stable & adequate Anesthetic Complications: no major complications apparent and Pt Satisfied with anesthetic care
[2019-07-28] MEDS ORDERED: GLUCAGON FOR INJ 1 MG VIAL ONE (17:02)
--- NOTE | 2019-07-28 17:24 | GI REPORT ---
Patient Name: Cristopher Julio Procedure Date: 07/28/2019 3:39 PM Date of : 1935 Admit Type: Inpatient Age: 84 Gender: Male Attending MD: Ean Chavez MD Procedure: Upper GI endoscopy Providers: Ean Chavez MD Referring MD: Rain Meyer M.d. Indications: Epigastric abdominal pain Medicines: General Anesthesia Complications: No immediate complications. Estimated Blood Loss: Estimated blood loss: none. Procedure: Pre-Anesthesia Assessment: - Prior to the procedure, a History and Physical was performed, and patient medications, allergies and sensitivities were reviewed. The patient's tolerance of previous anesthesia was reviewed. - The risks and benefits of the procedure and the sedation options and risks were discussed with the patient. All questions were answered and informed consent was obtained. - Patient identification and proposed procedure were verified prior to the procedure by the physician and the nurse. The procedure was verified in the procedure room. - Pre-procedure physical examination revealed no contraindications to sedation. After obtaining informed consent, the endoscope was passed under direct vision. Throughout the procedure, the patient's blood pressure, pulse, and oxygen saturations were monitored continuously. The Endoscope was introduced through the mouth, and advanced to the second part of duodenum. The upper GI endoscopy was accomplished without difficulty. The patient tolerated the procedure well. Findings: The examined esophagus was normal. The entire examined stomach was normal. The duodenal bulb and second portion of the duodenum were normal. Impression: - Normal esophagus. - Normal stomach. - Normal duodenal bulb and second portion of the duodenum. Recommendation: - Perform an ERCP. Ean Chavez MD 07/28/2019 5:24:05 PM This report has been signed electronically. Note Initiated On: 07/28/2019 3:39 PM Number of Addenda: 0 I attest to the content of the Intraoperative Record and orders documented therein, exceptions below {[id number]}
--- NOTE | 2019-07-28 17:33 | GI REPORT ---
Patient Name: Cristopher Julio Procedure Date: 07/28/2019 3:37 PM Date of : 1935 Admit Type: Inpatient Age: 84 Gender: Male Attending MD: Ean Chavez MD Procedure: ERCP Providers: Ean Chavez MD Referring MD: Rain Meyer M.d. Indications: Evaluation and possible treatment of bile duct stone(s), For therapy of ascending cholangitis, Elevated liver enzymes Medicines: General Anesthesia Complications: No immediate complications. Estimated Blood Loss: Estimated blood loss: none. Procedure: Pre-Anesthesia Assessment: - Prior to the procedure, a History and Physical was performed, and patient medications, allergies and sensitivities were reviewed. The patient's tolerance of previous anesthesia was reviewed. - The risks and benefits of the procedure and the sedation options and risks were discussed with the patient. All questions were answered and informed consent was obtained. - Patient identification and proposed procedure were verified prior to the procedure by the physician and the nurse. The procedure was verified in the procedure room. - Pre-procedure physical examination revealed no contraindications to sedation. After obtaining informed consent, the scope was passed under direct vision. Throughout the procedure, the patient's blood pressure, pulse, and oxygen saturations were monitored continuously. The Scope was introduced through the mouth, and advanced to the duodenum and used to inject contrast into the bile duct. The ERCP was accomplished without difficulty. The patient tolerated the procedure well. Findings: A upholsterer outside film of the abdomen was obtained. Surgical clips, consistent with a previous cholecystectomy, were seen in the area of the right upper quadrant of the abdomen. The esophagus was successfully intubated under direct vision. The scope was advanced to a normal major papilla in the descending duodenum without detailed examination of the pharynx, larynx and associated structures, and upper GI tract. The upper GI tract was grossly normal. A biliary sphincterotomy had been performed. The sphincterotomy appeared stenosed. A 0.035 inch straight standard wire was passed into the biliary tree. The Fusion OMNI sphincterotome was passed over the guidewire and the bile duct was then deeply cannulated. Contrast was injected. I personally interpreted the bile duct images. Ductal flow of contrast was adequate. Image quality was adequate. Contrast extended to the main bile duct. The main bile duct was moderately dilated. The largest diameter was 9 mm. The lower third of the main bile duct contained filling defect(s) thought to be a stone. The biliary sphincterotomy was extended with a monofilament traction (standard) sphincterotome using ERBE electrocautery. There was no post-sphincterotomy bleeding. Bile duct orifice was successfully dilated with an 8 mm balloon dilator. The biliary tree was swept with a 15 mm balloon starting at the bifurcation. One large stone was removed. No stones remained. Indomethacin 100 mg was given via suppository to decrease the risk of post-ERCP pancreatitis (PEP). PD was not cannulated. Impression: - Prior biliary sphincterotomy appeared stenosed. - An extension biliary sphincterotomy was performed. - Choledocholithiasis was found. Complete removal was accomplished by biliary sphincterotomy, sphincteroplasty and balloon extraction. This would explain the source of his bacteremia. Recommendation: - Return patient to hospital block for ongoing care. - Continue ABx and plan to complete a 10-14 days course, follow up ID recommendations. - Check LFTs. - Recall GI if needed. Ean Chavez MD 07/28/2019 5:32:42 PM This report has been signed electronically. Note Initiated On: 07/28/2019 3:37 PM Number of Addenda: 0 I attest to the content of the Intraoperative Record and orders documented therein, exceptions below {[id number]}
[2019-07-28] MEDS: METOPROLOL SUCC 50MG EXT REL TAB PO SCH (17:42)
[2019-07-28] MEDS: FUROSEMIDE 20 MG TAB PO SCH (17:42)
[2019-07-28] MEDS: SERTRALINE HCL 100 MG TABLET PO SCH (17:43)
--- NOTE | 2019-07-28 17:48 | Fluoroscopy Report ---
[place] ERCP biliary ductal CLINICAL HISTORY: 84 years-old Male presenting with ERCP. TECHNIQUE: Fluoroscopy was provided for endoscopic retrograde cholangiopancreatography. 11 fluoroscop ic image(s) recorded. COMPARISON: Right upper quadrant ultrasound and CT performed the previous day. FINDINGS: Procedure: An endoscope projects over the descending duodenum. A catheter was advanced into the commo n bile duct to the level of the central intrahepatic ducts. Bile ducts were opacified with contrast. Possible filling defect in the distal common duct may represent a gas bubble. No abnormal distention of the cystic duct remnant. A balloon was used to clear the common duct. Peritoneal spillage: No evidence of peritoneal spillage of contrast. Extrahepatic bile ducts: Mildly distended extrahepatic bile duct possibly a reservoir effect in the p ost cholecystectomy state. Contrast does not into the small bowel. Intrahepatic bile ducts: Mild central predominant intrahepatic biliary ductal dilatation. Fluoroscopy dosage (mGy): 19.66. Fluoroscopy time: 50.3 seconds. Number or time of high level fluoroscopy (HLF), digital spot, or digital subtraction images: 0. IMPRESSION: 1. Balloon clearance of the extra hepatic bile duct. 2. Status post cholecystectomy. 3. Prominence of central intrahepatic and extra hepatic bile ducts likely relates to a reservoir eff ect in the post cholecystectomy state. ACT 112: Negative or not required by law. Electronically signed by: Aiden Wilson M.D. 07/28/2019 5:47 PM
[2019-07-28] MEDS ORDERED: METOPROLOL SUCC 50MG EXT REL TAB PO ONE (18:05)
[2019-07-28] MEDS ORDERED: SERTRALINE HCL 100 MG TABLET PO ONE (18:06)
[2019-07-28] MEDS ORDERED: PANTOprazole 40 MG TAB PO ONE (18:08)
--- NOTE | 2019-07-28 20:42 | Hospitalist Progress Note ---
Date of Service July 28, 2019 Assessment & Plan (1) Gram negative sepsis: Presented with fever and abdominal pain. Met criteria for sepsis per current CMS guidelines (fever, tachycardia). Hemodynamically stable. WBC normal. Serum lactate 1.4. Blood cultures obtained. Received broad spectrum antibiotic coverage with piperacillin / tazobactam. LFTs elevated. Ultrasound of liver showed surgical absence of gallbladder, pneumobilia. Blood cultures growing gram-negative bacilli (present on admission). Suspected source of sepsis = cholangitis. ID and GI consulted. (2) Elevated LFTs: As noted above. (3) CAD (coronary artery disease): No anginal symptoms. Continue aspirin, metoprolol, lisinopril, statin. (4) Ischemic cardiomyopathy: Chronic left ventricular systolic heart failure. Compensated. (5) Hypertension: Hemodynamically stable. Continue metoprolol, felodipine, lisinopril. (6) COPD (chronic obstructive pulmonary disease): Pulmonary status stable. (7) CKD (chronic kidney disease), stage III: Creatinine today = 1.65. Follow. (8) Hypothyroidism: Continue levothyroxine. (9) Parkinson's disease: Continue carbidopa/levodopa and selegiline. (10) DVT prophylaxis: SQ heparin. Ambulate. (11) Discharge planning issues: Anticipated discharge to home, but may need skilled care or home health services. PT / OT marshall. Family Medicine follow-up with Dr. Mullen. Admission and Anticipated Discharge Date Admission Date: July 27, 2019 Subjective Recheck for multiple problems. Patient seen in their room around 0920. Feels better. Abdominal pain resolved. No nausea / vomiting. Last fever evening of admission. Review of Systems: Constitutional- as noted above. Cardiac- no chest pain. Pulmonary- no cough or SOB. GI- as noted above. - no urinary symptoms. Otherwise, as noted above. Physical Exam Constitutional: no acute distress Respiratory: no respiratory distress Auscultation: lungs clear to auscultation bilaterally Cardiovascular: Rate/Rhythm: regular rate and regular rhythm Heart Sounds: + murmur (III/ systolic murmur at apex); no gallop and no cardiac rub Vessels: no JVD Extremities: no calf tenderness and no edema Gastrointestinal (Abdomen): normal bowel sounds, soft, nontender, no hepatosplenomegaly Musculoskeletal: Extremities: no cyanosis Skin: no rashes, warm and dry Psychiatric: Orientation: alert and oriented x 3 (mild confusion, but oriented to person, place, day of week, year, president) Results & Data ([facility]) Vital Signs (Past 12 Hours) Vital Signs Temp Pulse Pulse Pulse Pulse Resp BP 07/28/19 19:34 64 18 07/28/19 18:04 35.6 C L 61 16 07/28/19 17:45 35.5 C L 61 61 18 07/28/19 17:30 36.4 C L 63 18 07/28/19 17:05 36.5 C 63 13 07/28/19 16:50 66 12 07/28/19 16:40 70 17 07/28/19 16:30 73 16 07/28/19 16:21 37.1 C 78 14 07/28/19 14:48 36.8 C 77 20 07/28/19 14:43 36.8 C 77 20 123/64 07/28/19 14:33 36.7 C 74 20 07/28/19 13:02 65 18 07/28/19 11:27 36.5 C 66 16 BP Pulse Ox 07/28/19 19:34 98 07/28/19 18:04 133/69 98 07/28/19 17:45 127/70 98 07/28/19 17:30 121/69 97 07/28/19 17:05 132/67 97 07/28/19 16:50 123/68 97 07/28/19 16:40 124/66 97 07/28/19 16:30 137/66 98 07/28/19 16:21 137/72 98 07/28/19 14:48 123/63 96 07/28/19 14:43 96 07/28/19 14:33 122/64 94 07/28/19 13:02 92 07/28/19 11:27 105/55 L 94 Laboratory Results Laboratory Results - last 24 hr 07/28/19 07/28/19 07/28/19 05:27 05:27 05:27 WBC 8.38 RBC 3.64 L Hgb 10.8 L Hct 32.4 L MCV 89.0 MCH 29.7 MCHC 33.3 RDW Std Deviation 47.5 H RDW Coeff of [place] 14.6 H Plt Count 128 L MPV 9.7 Immature Gran % (Auto) 0.2 Neut % (Auto) 84.8 Lymph % (Auto) 7.9 [place] % (Auto) 7.0 Eos % (Auto) 0.1 Baso % (Auto) 0.0 Immature Gran # (Auto) 0.02 Neut # (Auto) 7.10 H Lymph # (Auto) 0.66 L [place] # (Auto) 0.59 Eos # (Auto) 0.01 Baso # (Auto) 0.00 Sodium Potassium Chloride Carbon Dioxide Anion Gap BUN Creatinine Est Cr Clr Drug Dosing Est GFR ( Amer) Est GFR (Non-Af Amer) BUN/Creatinine Ratio Glucose Calcium Magnesium Total Bilirubin Direct Bilirubin AST ALT Alkaline Phosphatase NT-Pro-B Natriuret Pep Total Protein Albumin Lipase CMV IgM Ab Pending CMV IgG Ab/TORCH Pending EBV Capsid Ag IgG Ab Pending EBV Capsid Ag IgM Ab Pending EBV EA Restrict+Diffuse Pending EBV Nuclear Antigen Ab Pending EBV Antibody Interp Pending Hepatitis A IgM Ab Pending Hep Bs Antigen Neg Hep B Core IgM Ab Pending Hepatitis C Antibody Neg 07/28/19 05:27 WBC RBC Hgb Hct MCV MCH MCHC RDW Std Deviation RDW Coeff of [place] Plt Count MPV Immature Gran % (Auto) Neut % (Auto) Lymph % (Auto) [place] % (Auto) Eos % (Auto) Baso % (Auto) Immature Gran # (Auto) Neut # (Auto) Lymph # (Auto) [place] # (Auto) Eos # (Auto) Baso # (Auto) Sodium 138 Potassium 4.4 Chloride 108 H Carbon Dioxide 25 Anion Gap 5.0 BUN 44 H Creatinine 1.65 H Est Cr Clr Drug Dosing 30.0 Est GFR ( Amer) 44.1 Est GFR (Non-Af Amer) 38.1 BUN/Creatinine Ratio 26.7 H Glucose 91 Calcium 8.5 Magnesium 2.3 Total Bilirubin 0.4 Direct Bilirubin 0.1 AST 45 H ALT 34 Alkaline Phosphatase 158 H NT-Pro-B Natriuret Pep 890 Total Protein 6.3 L Albumin 2.9 L Lipase 61 L CMV IgM Ab CMV IgG Ab/TORCH EBV Capsid Ag IgG Ab EBV Capsid Ag IgM Ab EBV EA Restrict+Diffuse EBV Nuclear Antigen Ab EBV Antibody Interp Hepatitis A IgM Ab Hep Bs Antigen Hep B Core IgM Ab Hepatitis C Antibody Microbiology 07/26/19 22:23 Blood Aerobic Blood Culture - Preliminary Gram negative bacilli 07/26/19 22:23 Blood Anaerobic Blood Culture - Preliminary Gram negative bacilli Gram negative bacilli#2 07/26/19 22:28 Blood Aerobic Blood Culture - Preliminary No growth in Aerobic bottle after 24 hours. 07/26/19 22:28 Blood Anaerobic Blood Culture - Preliminary Gram negative bacilli
[2019-07-28] MEDS: KETOCONAZOLE 2% CR 15 GM TUBE EXT SCH (21:48)
[2019-07-28] MEDS: FELODIPINE 2.5 MG TABCR PO SCH (21:49)
[2019-07-28] MEDS: NORTRIPTYLINE HCL 25 MG CAP PO SCH (21:49)
[2019-07-28] MEDS: SIMVASTATIN 40 MG TAB PO SCH (21:51)
[2019-07-28] MEDS: D5W AND 1/2NSS 1,000 ML IV SCH (22:44)
[2019-07-29] MEDS: IPRATROPIUM BROMIDE NEB SOLN 0.02% 2.5 ML VIAL INH SCH ×4 (00:57→19:34)
[2019-07-29] MEDS: LEVALBUTEROL 1.25MG/0.5ML NEB INH SCH ×4 (00:57→19:34)
[2019-07-29] MEDS: D5W AND 1/2NSS 1,000 ML IV SCH ×3 (05:05→18:31)
[2019-07-29] MEDS: HEPARIN SOD 5,000 UNIT/0.5 ML VIAL SQ SCH ×3 (05:58→20:58)
[2019-07-29] MEDS: PIPERACILLIN/TAZOBACTAM 3.375 GM in DEXTROSE 5% 100 ML IV SCH ×3 (05:59→20:59)
[2019-07-29 06:00] LABS: Hematocrit (blood only) 32.2 % (42-52); Hemoglobin 10.7 g/dL (14.0-18.0); Mean Corpuscular Hemoglobin 29.5 pg (25-34); Mean Corpuscular Hgb Conc 33.2 g/dL (32-36); Mean Corpuscular Volume 88.7 fL (80-100); Mean Platelet Volume 8.9 fL (7.4-10.4); Platelet Count 125 K/uL (130-400); RDW Coefficient of Variation 14.9 % (11.5-14.5); RDW Standard Deviation 48.9 fL (36.4-46.3); Red Blood Count 3.63 M/uL (4.7-6.1); White Blood Count 4.44 K/uL (4.8-10.8)
[2019-07-29] MEDS: LEVOTHYROXINE SODIUM 88 MCG TABLET PO SCH (06:00)
[2019-07-29 06:48] LABS: Albumin Globulin Ratio 0.8 (0.9-2); Albumin Level 2.8 gm/dl (3.4-5.0); BUN Creatinine Ratio 21.7 (10-20); Bilirubin Direct 1.2 mg/dl (0-0.2); Bilirubin,Total 1.7 mg/dl (0.2-1); Calcium 8.7 mg/dl (8.5-10.1); Creatinine Clr Calc Pharmacy 26.4 ml/min; Est GFR (African American) 37.7; Est GFR (Non-African American) 32.5; Globulin 3.5 gm/dl (2.5-4.0); Potassium 4.1 mmol/L (3.5-5.1); Total Protein 6.3 gm/dl (6.4-8.2)
[2019-07-29] MEDS: DOCUSATE SODIUM 100 MG CAP PO SCH ×2 (08:01→20:52)
[2019-07-29] MEDS: POTASSIUM CHLORIDE 10 MEQ TABCR PO SCH (08:01)
[2019-07-29] MEDS: ASPIRIN 81 MG ECTAB PO SCH (08:01)
[2019-07-29] MEDS: SELEGILINE HCL 5 MG TAB PO SCH ×2 (08:01→20:53)
[2019-07-29] MEDS: PANTOprazole 40 MG TAB PO SCH (08:02)
[2019-07-29] MEDS: NITROGLYCERIN 0.4 MG/HR PATCH TD SCH (08:02)
[2019-07-29] MEDS: METOPROLOL SUCC 50MG EXT REL TAB PO SCH (08:02)
[2019-07-29] MEDS: CARBIDOPA/LEVODOPA 25/100MG TAB PO SCH ×3 (08:02→20:53)
[2019-07-29] MEDS: SERTRALINE HCL 100 MG TABLET PO SCH (08:03)
--- NOTE | 2019-07-29 08:41 | Gastroenterology Progress Note ---
Date of Service July 29, 2019 Assessment & Plan (1) Elevated LFTs: 84 year old male HTN, dyslipidemia, hypothyroidism, CKD-3, ischemic cardiomyopathy, chronic kidney disease stage III, systolic CHF, mitral regurgitation, moderate aortic stenosis, GERD, PD, CAD status post CABG, biventricular defibrillator, JOVITA admitted through the ED w/ abdominal pain, elevated LFTs, SOB and positive blood cultures. He does have a history of cholecystectomy years ago, retained biliary sludge s/p ERCP w/ balloon sweep and sphincterotomy in 2008. Blood cultures gram negative bacilli, transaminases trending down, biliary imaging non-diagnostic. S/P ERCP w/ evidence of prior biliary sphincterotomy stenosis, choledocholithiasis removed by biliary sphincterotomy. Clinically improving, does have slight bump in LFTs this AM, likely secondary to manipulation from ERCP - Continue ABX and plan to complete a 10-14 day course - Follow up ID recommendations. - Check LFTs. - Recall GI if needed. - IV hydration for maintenance fluid - Closely watch for signs of volume overload Will sign off. Thank you for allowing us to participate in the care of this patient. Please call with any acute changes, questions or concerns. Please see addendum below with additional recommendation from my supervising physician. Admission and Anticipated Discharge Date Admission Date: July 27, 2019 Supervising Physician Co-Signing Physician Notes I have seen and examined the patient and discussed the management with ELEAZAR [place]. S/p ercp on 07/28 with balloon dilation and extension of the sphincterotomy Slight bump in lft's which can occur post procedure. Continue IV abx and change to PO for total duration of 14 days, ID input can also help determine length of therapy. PE - alert and oriented to person, place, time, HEENT - perrla, Abd - soft nt nd +bs, Neuro- cn's 2-12 intact Labs all reviewed Fluoro images also reviewed Agree with further plan of care as above. Subjective Pt was seen and evaluated, chart reviewed he is awake, eating breakfast offers no complaints no nausea,vomiting tolerating PO intake no further pain no fever, chills CP, SOB S/p ercp w/ removal of large stone, extension of sphincterotomy Review of Systems Constitutional: no fever, no body aches and no weakness Respiratory: no cough, no dyspnea and no pain on inspiration Cardiovascular: no chest pain, no radiating jaw, neck or arm pain and no dyspnea on exertion Gastrointestinal: no abdominal pain, no early satiety and no vomiting Physical Exam Constitutional: + ill appearing (acute on chronically ill); no acute distress Neck: trachea midline Respiratory: normal respiratory effort; no respiratory distress Cardiovascular: Rate/Rhythm: regular rate and regular rhythm Gastrointestinal (Abdomen): normal bowel sounds, soft, nontender, no hepatosplenomegaly Results & Data ([facility]) Vital Signs (Past 12 Hours) Vital Signs Temp Pulse Pulse Pulse Resp BP Pulse Ox 07/29/19 07:37 72 07/29/19 07:33 36.6 C 64 18 145/73 H 94 07/29/19 07:08 68 18 95 07/29/19 04:34 65 07/29/19 03:18 36.6 C 61 19 127/71 91 07/29/19 00:57 71 16 93 07/28/19 21:25 76
--- NOTE | 2019-07-29 10:09 | Infectious Disease Progress Nt ---
Date of Service July 29, 2019 Assessment & Plan (1) Biliary sepsis: will continue zosyn for now, follow repeat cultures, if negative, can change to Augmentin 875mg po bid to complete 14 days from first blood cultures. (2) Gram negative sepsis: Admission and Anticipated Discharge Date Admission Date: July 27, 2019 Subjective pt growing pansensitive E. coli and K. pneumo from initial blood cultures, repeats pending. afebrile. tolerating zosyn. s/p ERCP and removal of CBD stone. wbc 4, creat increased to 1.8. Results & Data ([facility]) Vital Signs (Past 12 Hours) Vital Signs Temp Pulse Pulse Pulse Resp BP Pulse Ox 07/29/19 09:44 94 07/29/19 07:37 72 07/29/19 07:33 36.6 C 64 18 145/73 H 94 07/29/19 07:08 68 18 95 07/29/19 04:34 65 07/29/19 03:18 36.6 C 61 19 127/71 91 07/29/19 00:57 71 16 93 Laboratory Results Microbiology 07/26/19 22:28 Blood Aerobic Blood Culture - Preliminary No growth in Aerobic bottle after 48 hours. 07/26/19 22:28 Blood Anaerobic Blood Culture - Preliminary Klebsiella pneumoniae 07/26/19 22:23 Blood Aerobic Blood Culture - Final Klebsiella pneumoniae 07/26/19 22:23 Blood Anaerobic Blood Culture - Final Klebsiella pneumoniae Escherichia coli PG Care Time/CCT Total # of Minutes Spent Total Time Spent with Patient: Total time spent is greater than 50% in coordination of care (as documented) at patient's floor/unit and/or counseling patient: Coding Level of Care Code 04982 Subseq Hosp Care Lvl 1 Diagnoses Biliary sepsis K83.09 Gram negative sepsis A41.50
--- NOTE | 2019-07-29 12:00 | Fluoroscopy Report ---
FL video swallow CLINICAL HISTORY: 84 years-old Male presenting with dysarthria, r/o aspiration, Parkinson's disease. TECHNIQUE: Video fluoroscopic evaluation of swallowing was performed in the AP and lateral projection s in conjunction with speech pathology. The patient was administered various textures, including nect ar-thick and thin liquid barium, a barium coated wafer, and barium pudding. COMPARISON: 07/29/2008. FINDINGS: Median sternotomy wires noted. Extensive degenerative changes of the cervical spine. Normal oral transit, including normal tongue-soft palate seal. Normal soft palate-superior constricto r muscle seal without evidence of nasopharyngeal regurgitation. Normal oral transport/propulsion of t he food bolus. Normal hyoid elevation and epiglottic deflection. No evidence of a significant pharyng eal bolus residual. None of the administered textures resulted in laryngeal penetration within the laryngeal vestibule. N one of the administered textures resulted in aspiration of barium contrast below the level of the britta e vocal folds. Fluoroscopy dosage (mGy): Not available. Fluoroscopy time: 2.6 minutes. Number or time of high level fluoroscopy (HLF), digital spot, or digital subtraction images: 0. IMPRESSION: 1. No aspiration identified. 2. Please see the speech pathologist report for detailed findings and recommendations. ACT 112: Negative or not required by law. Electronically signed by: Aiden Wilson M.D. 07/29/2019 11:59 AM
--- NOTE | 2019-07-29 19:21 | XRay Report ---
XR chest 1V portable CLINICAL HISTORY: SOB COMPARISON STUDY: July 26, 2019 FINDINGS: The cardiac and mediastinal contours remain stable. There is a left subclavian pacer/defibr illator. There are postsurgical changes of a midline sternotomy. There is stable left-sided pleural f luid/thickening. There are persistent bilateral interstitial opacities left greater than right. This may indicate chronic interstitial lung disease. There are old right-sided rib fractures. There is no acute lobar consolidation[ IMPRESSION: 1. Persistent mild cardiomegaly 2. Stable left-sided pleural fluid/thickening 3. Persistent asymmetric interstitial opacities, likely secondary to chronic interstitial lung diseas e. 4. No significant change from the preceding study. ACT 112: Negative or not required by law. Electronically signed by: Art Sparks M.D. 07/29/2019 7:20 PM
[2019-07-29] MEDS: NORTRIPTYLINE HCL 25 MG CAP PO SCH (20:52)
[2019-07-29] MEDS: SIMVASTATIN 40 MG TAB PO SCH (20:54)
[2019-07-29] MEDS: FELODIPINE 2.5 MG TABCR PO SCH (20:54)
[2019-07-29] MEDS: KETOCONAZOLE 2% CR 15 GM TUBE EXT SCH (20:55)
--- NOTE | 2019-07-29 22:01 | Hospitalist Progress Note ---
Date of Service July 29, 2019 Assessment & Plan (1) Gram negative sepsis: Presented with fever and abdominal pain. Met criteria for sepsis per current CMS guidelines (fever, tachycardia). Hemodynamically stable. WBC normal. Serum lactate 1.4. Blood cultures obtained. Received broad spectrum antibiotic coverage with piperacillin / tazobactam. LFTs elevated. Ultrasound of liver showed surgical absence of gallbladder, pneumobilia. Blood cultures grew gram-negative bacilli (present on admission). Suspected source of sepsis = cholangitis. ID and GI consulted. ERCP performed 07/28. Found to have choledocholithiasis. Extension sphincterotomy with balloon extraction of stones performed. Blood cultures growing Klebsiella pneumoniae and E coli, pansensitive. Repeat blood cultures drawn this morning. ID recommended continuation of IV antibiotics until bacteremia clears, then transition to oral therapy with amoxicillin / clavulanic acid to complete 14 days of therapy. (2) Elevated LFTs: As noted above. (3) Choledocholithiasis with obstruction: As noted above. (4) Cholangitis: As noted above. (5) CAD (coronary artery disease): No anginal symptoms. Continue aspirin, metoprolol, lisinopril, statin. (6) Ischemic cardiomyopathy: Chronic left ventricular systolic heart failure. Few bibasilar rales. Check f/u chest x-ray. (7) Hypertension: Hemodynamically stable. Continue metoprolol, felodipine, lisinopril. (8) COPD (chronic obstructive pulmonary disease): Pulmonary status stable. (9) CKD (chronic kidney disease), stage III: Creatinine today = 1.88. Follow. (10) Hypothyroidism: Continue levothyroxine. (11) Parkinson's disease: Continue carbidopa/levodopa and selegiline. (12) DVT prophylaxis: SQ heparin. Ambulate. (13) Discharge planning issues: PT and OT evaluations obtained. Anticipated DC to home. Family Medicine follow-up with Dr. Mullen. Admission and Anticipated Discharge Date Admission Date: July 27, 2019 Subjective Recheck for multiple problems. Patient seen in their room around 1840. Daughter visiting. Feels better. No fever. Abdominal pain resolved. No nausea / vomiting. No diarrhea. Review of Systems: Constitutional- as noted above. Cardiac- no chest pain. Pulmonary- occasional cough, no SOB. GI- as noted above. - no urinary symptoms. Otherwise, as noted above. Physical Exam Constitutional: no acute distress Respiratory: no respiratory distress Auscultation: + rales (few bibasilar) Cardiovascular: Rate/Rhythm: regular rate and regular rhythm Heart Sounds: + murmur (III/ systolic murmur at base and LSB); no gallop and no cardiac rub Vessels: no JVD Extremities: no calf tenderness and no edema Gastrointestinal (Abdomen): normal bowel sounds, soft, nontender, no hepatosplenomegaly Musculoskeletal: Extremities: no cyanosis Skin: no rashes, warm and dry Psychiatric: Orientation: alert and oriented x 3 Results & Data ([facility]) Vital Signs (Past 12 Hours) Vital Signs Temp Pulse Pulse Pulse Resp BP BP 07/29/19 19:36 61 16 07/29/19 18:38 36.5 C 66 20 134/77 07/29/19 15:53 36.3 C L 64 18 119/62 07/29/19 15:15 64 07/29/19 13:41 66 18 Pulse Ox 07/29/19 19:36 96 07/29/19 18:38 94 07/29/19 15:53 96 07/29/19 15:15 07/29/19 13:41 97 Laboratory Results 07/29/19 05:41 07/29/19 05:41 Microbiology 07/26/19 22:28 Blood Aerobic Blood Culture - Preliminary No growth in Aerobic bottle after 48 hours. 07/26/19 22:28 Blood Anaerobic Blood Culture - Preliminary Klebsiella pneumoniae 07/26/19 22:23 Blood Aerobic Blood Culture - Final Klebsiella pneumoniae 07/26/19 22:23 Blood Anaerobic Blood Culture - Final Klebsiella pneumoniae Escherichia coli
[2019-07-30] MEDS: LEVALBUTEROL 1.25MG/0.5ML NEB INH SCH ×4 (01:21→19:18)
[2019-07-30] MEDS: IPRATROPIUM BROMIDE NEB SOLN 0.02% 2.5 ML VIAL INH SCH ×4 (01:22→19:18)
[2019-07-30] MEDS: HEPARIN SOD 5,000 UNIT/0.5 ML VIAL SQ SCH ×2 (05:52→14:19)
[2019-07-30] MEDS: PIPERACILLIN/TAZOBACTAM 3.375 GM in DEXTROSE 5% 100 ML IV SCH ×3 (05:52→22:13)
[2019-07-30] MEDS: LEVOTHYROXINE SODIUM 88 MCG TABLET PO SCH (05:53)
[2019-07-30 07:41] LABS: Albumin Globulin Ratio 0.8 (0.9-2); BUN Creatinine Ratio 14.3 (10-20); Bilirubin Direct 2.3 mg/dl (0-0.2); Bilirubin,Total 2.9 mg/dl (0.2-1); Calcium 8.8 mg/dl (8.5-10.1); Creatinine Clr Calc Pharmacy 29.8 ml/min; Est GFR (African American) 43.8; Est GFR (Non-African American) 37.8; Globulin 3.7 gm/dl (2.5-4.0); Potassium 4.5 mmol/L (3.5-5.1); Total Protein 6.7 gm/dl (6.4-8.2)
[2019-07-30] MEDS: PANTOprazole 40 MG TAB PO SCH (08:12)
[2019-07-30] MEDS: DOCUSATE SODIUM 100 MG CAP PO SCH ×2 (08:12→20:51)
[2019-07-30] MEDS: METOPROLOL SUCC 50MG EXT REL TAB PO SCH (08:12)
[2019-07-30] MEDS: CARBIDOPA/LEVODOPA 25/100MG TAB PO SCH ×3 (08:13→20:52)
[2019-07-30] MEDS: SELEGILINE HCL 5 MG TAB PO SCH ×2 (08:13→20:54)
[2019-07-30] MEDS: ASPIRIN 81 MG ECTAB PO SCH (08:13)
[2019-07-30] MEDS: FUROSEMIDE 20 MG TAB PO SCH (08:13)
[2019-07-30] MEDS: POTASSIUM CHLORIDE 10 MEQ TABCR PO SCH (08:13)
[2019-07-30] MEDS: NITROGLYCERIN 0.4 MG/HR PATCH TD SCH (08:14)
[2019-07-30] MEDS: SERTRALINE HCL 100 MG TABLET PO SCH (08:14)
--- NOTE | 2019-07-30 11:34 | Gastroenterology Progress Note ---
Date of Service July 30, 2019 Assessment & Plan (1) Elevated LFTs: Pt is a 84 y/o male w hx of cholecystectomy, retained biliary sludge s/p ERCP w balloon sweep & sphincterectomy in 2008. Currently he's admitted for elevated LFTs, bacteremia, ERCP repeated on 07/28/2019 - found to have stenosis on prior biliary sphincterectomy, choledocholithiasis removed by biliary sphincterectomy. His LFTs are initially decreasing but then started to increase yesterday, specifically w Tbili elevation. - Continue IV antibx coverage - Follow LFTs, if increasing plan for ERCP w biliary stent placement tomorrow in OR by Dr. Chavez - Pls keep pt NPO after midnight Admission and Anticipated Discharge Date Admission Date: July 27, 2019 Supervising Physician Co-Signing Physician Notes I have seen and examined the patient and discussed the management with ELEAZAR Collins. 84 yo male with a history of being admitted with hypotension, + blood culture, prior ercp in the past, initially normal labs. He underwent ERCP on 07/28/19 with balloon dilation and extension of his sphincterotomy. Slight bump in lft's on 07/29/19 and again today. PE - well nourished male in nad, HEENT - no scleral icterus, Pulm- ctab, CV - rrr no mrg, Abd - soft nt nd +bs, Neuro - cn's 2-12 intact, alert and oriented to person, place, time Labs reviewed Discussed with Dr. Chavez - will plan for repeat ERCP on 07/31/19- npo after midnite. Subjective GI asked to re-evaluate pt given increase in his LFTs currently: Tbili 2.9, Dbili 2.3, AST 300, ALT 100, Alk phos 222 Review of Systems Review of Systems: All systems reviewed & are unremarkable except as noted in HPI & below Physical Exam Constitutional: WD/WN, vitals as above well groomed, cooperative and comfortable Eyes: PERRL, conjunctivae normal, anicteric sclerae ENMT: external ear and nose normal, oropharynx normal Respiratory: normal respiratory effort, lungs clear to auscultation Cardiovascular: RRR, no murmur, no edema Gastrointestinal (Abdomen): normal bowel sounds, soft, nontender, no hepatosplenomegaly Skin: no rashes, warm and dry no jaundice Psychiatric: A+Ox3, euthymic affect Lymphatic: no lymphedema Results & Data ([facility]) Vital Signs (Past 12 Hours) Vital Signs Temp Pulse Pulse Resp BP BP Pulse Ox 07/30/19 07:25 36.8 C 70 20 161/75 H 157/70 H 94 07/30/19 07:12 73 16 95 07/30/19 03:56 79 07/30/19 03:31 36.8 C 80 20 155/83 H 92 07/30/19 01:22 75 16 94 07/29/19 23:27 37.1 C 75 18 150/77 H 95
[2019-07-30 13:26] LABS: CMV IgG Antibody >10.00 U/mL; CMV IgM Antibody <30.00 AU/mL; Hepatitis A Antibody IgM NON-REACTIVE (NON-REACTIVE); Hepatitis B Core Antibody IgM NON-REACTIVE (NON-REACTIVE)
--- NOTE | 2019-07-30 18:47 | Hospitalist Progress Note ---
Date of Service July 30, 2019 Assessment & Plan (1) Gram negative sepsis: Presented with fever and abdominal pain. Met criteria for sepsis per current CMS guidelines (fever, tachycardia). Hemodynamically stable. WBC normal. Serum lactate 1.4. Blood cultures obtained. Received broad spectrum antibiotic coverage with piperacillin / tazobactam. LFTs elevated. Ultrasound of liver showed surgical absence of gallbladder, pneumobilia. Blood cultures grew gram-negative bacilli (present on admission). Suspected source of sepsis = cholangitis. ID and GI consulted. ERCP performed 07/28. Found to have choledocholithiasis. Extension sphincterotomy with balloon extraction of stones performed. Blood cultures growing Klebsiella pneumoniae and E coli, pansensitive. Repeat blood cultures drawn 07/29- negative thus far. ID recommended continuation of IV antibiotics until bacteremia clears, then transition to oral therapy with amoxicillin / clavulanic acid to complete 14 days of therapy. (2) Elevated LFTs: As noted above. (3) Choledocholithiasis with obstruction: Choledocholithiasis as noted above. LFT's rising, but doing well clinically. Recheck LFT's tomorrow. May need repeat ERCP if they continue to rise. (4) Cholangitis: As noted above. (5) CAD (coronary artery disease): No anginal symptoms. Continue aspirin, metoprolol, lisinopril, statin. (6) Ischemic cardiomyopathy: Chronic left ventricular systolic heart failure. Few bibasilar rales. Chest x-ray showed chronic changes. (7) Hypertension: Hemodynamically stable. Continue metoprolol, felodipine, lisinopril. (8) COPD (chronic obstructive pulmonary disease): Pulmonary status stable. (9) CKD (chronic kidney disease), stage III: Creatinine today = 1.66. Follow. (10) Hypothyroidism: Continue levothyroxine. (11) Parkinson's disease: Continue carbidopa/levodopa and selegiline. (12) DVT prophylaxis: SQ heparin- hold for possible ERCP tomorrow. Ambulate. (13) Discharge planning issues: PT and OT evaluations obtained. Anticipated DC to home. Family Medicine follow-up with Dr. Mullen. Admission and Anticipated Discharge Date Admission Date: July 27, 2019 Subjective Recheck for multiple problems. Patient seen in their room around 1100. Feels better. No fever. Abdominal pain resolved. No nausea, vomiting, diarrhea. Review of Systems: Constitutional- as noted above. Cardiac- no chest pain. Pulmonary- occasional cough, no SOB. GI- as noted above. - no urinary symptoms. Otherwise, as noted above. Physical Exam Constitutional: no acute distress Respiratory: no respiratory distress Auscultation: + rales (few bibasilar) Cardiovascular: Rate/Rhythm: regular rate and regular rhythm Heart Sounds: + murmur (III/ systolic murmur at base and LSB); no gallop and no cardiac rub Vessels: no JVD Extremities: no calf tenderness and no edema Gastrointestinal (Abdomen): normal bowel sounds, soft, nontender, no hepatosplenomegaly Musculoskeletal: Extremities: no cyanosis Skin: no rashes, warm and dry Psychiatric: Orientation: alert and oriented x 3 Results & Data ([facility]) Vital Signs (Past 12 Hours) Vital Signs Temp Pulse Pulse Resp BP BP Pulse Ox 07/30/19 16:09 79 07/30/19 15:35 36.6 C 73 18 145/65 H 94 07/30/19 13:13 87 18 95 07/30/19 11:46 36.6 C 76 20 152/77 H 95 07/30/19 07:25 36.8 C 70 20 161/75 H 157/70 H 94 07/30/19 07:12 73 16 95 Laboratory Results 07/29/19 05:41 07/30/19 06:43 07/27/19 07/29/19 07/30/19 05:29 05:41 06:43 Total Bilirubin 0.6 1.7 H D 2.9 H D Direct Bilirubin < 0.1 1.2 H D 2.3 H D AST 95 H 166 H 308 H ALT 99 H 35 100 H Alkaline Phosphatase 207 H 191 H 222 H
[2019-07-30] MEDS: NORTRIPTYLINE HCL 25 MG CAP PO SCH (20:49)
[2019-07-30] MEDS: KETOCONAZOLE 2% CR 15 GM TUBE EXT SCH (20:50)
[2019-07-30] MEDS: FELODIPINE 2.5 MG TABCR PO SCH (20:51)
[2019-07-30] MEDS: SIMVASTATIN 40 MG TAB PO SCH (20:51)
[2019-07-31] MEDS: LEVALBUTEROL 1.25MG/0.5ML NEB INH SCH ×4 (01:02→13:40)
[2019-07-31] MEDS: IPRATROPIUM BROMIDE NEB SOLN 0.02% 2.5 ML VIAL INH SCH ×4 (01:02→13:40)
[2019-07-31] MEDS: LEVOTHYROXINE SODIUM 88 MCG TABLET PO SCH (05:58)
[2019-07-31] MEDS: PIPERACILLIN/TAZOBACTAM 3.375 GM in DEXTROSE 5% 100 ML IV SCH ×2 (05:58→13:21)
[2019-07-31 06:05] LABS: Hematocrit (blood only) 35.2 % (42-52); Hemoglobin 11.7 g/dL (14.0-18.0); Mean Corpuscular Hemoglobin 29.9 pg (25-34); Mean Corpuscular Hgb Conc 33.2 g/dL (32-36); Mean Platelet Volume 9.3 fL (7.4-10.4); Platelet Count 143 K/uL (130-400); RDW Coefficient of Variation 15.2 % (11.5-14.5); RDW Standard Deviation 50.2 fL (36.4-46.3); Red Blood Count 3.91 M/uL (4.7-6.1); White Blood Count 5.53 K/uL (4.8-10.8)
[2019-07-31 06:37] LABS: BUN Creatinine Ratio 12.6 (10-20); Calcium 8.9 mg/dl (8.5-10.1); Est GFR (African American) 45.8; Est GFR (Non-African American) 39.5; Potassium 4.3 mmol/L (3.5-5.1)
[2019-07-31 06:49] LABS: Bilirubin,Total 1.6 mg/dl (0.2-1); Total Protein 6.8 gm/dl (6.4-8.2)
[2019-07-31] MEDS ORDERED: PROPOFOL IV EMULSION 10 MG/ML 20 ML VIAL IV ONE (06:59)
[2019-07-31] MEDS ORDERED: ROCURONIUM BROMIDE 10 MG/ML 5 ML VIAL ONE (06:59)
[2019-07-31] MEDS ORDERED: LIDOCAINE HCL 2% 2 ML VIAL/AMP(20MG/ML) INFIL ONE (06:59)
[2019-07-31] MEDS ORDERED: ONDANSETRON INJ 2 MG/ML 2 ML VIAL ONE (06:59)
[2019-07-31] MEDS ORDERED: INDOMETHACIN 50 MG SUPP PR SCH (07:00)
[2019-07-31] MEDS ORDERED: fentaNYL citrate 100 MCG/2 ML VIAL ONE (07:00)
[2019-07-31] MEDS ORDERED: ONDANSETRON INJ 2 MG/ML 2 ML VIAL IV PRN (07:24)
[2019-07-31] MEDS ORDERED: fentaNYL citrate 100 MCG/2 ML VIAL IV PRN (07:24)
[2019-07-31] MEDS ORDERED: ATROPINE SULFATE 0.1 MG/ML 10ML SYR IV PRN (07:24)
--- NOTE | 2019-07-31 07:24 | Anesthesiology Consultation ---
Date of Service July 31, 2019 Assessment & Plan (1) Encounter for pre-operative examination: Chart Review Chart Review: Acceptable Risk for Surgery History Surgery Operation Date: 07/28/19 09:40 Proposed Procedures p Endoscopic Retrograde Cholangiopancreatogram - Ean Chavez MD Operation Date: 07/31/19 07:30 Proposed Procedures p Endoscopic Retrograde Cholangiopancreatogram - Ean Chavez MD Height/Weight Height: 5 ft 5 in Weight: 69.3 kg Allergies Allergy/AdvReac Type Severity Reaction Status Date / Time haloperidol Allergy Unknown LOSS OF Verified 07/26/19 23:36 VISION Medications Home Medications Medication Instructions Recorded Confirmed Last Taken carbidopa-levodopa 1 tab PO TID 03/09/18 07/26/19 07/26/19 docusate sodium 100 mg PO BID 03/09/18 07/26/19 07/26/19 felodipine 2.5 mg PO QPM 03/09/18 07/26/19 07/26/19 furosemide 20 mg PO MOWEFR 03/09/18 07/26/19 07/26/19 levothyroxine 88 mcg PO DAILY 03/09/18 07/26/19 07/26/19 lisinopril 2.5 mg PO QAM 03/09/18 07/26/19 07/26/19 metoprolol succinate 50 mg PO DAILY 03/09/18 07/26/19 07/26/19 nitroglycerin 0.4 mg SUBLINGUAL DIRECTED PRN 03/09/18 07/26/19 Unknown nortriptyline 100 mg PO HS 03/09/18 07/26/19 03/08/18 potassium chloride 10 meq PO DAILY 03/09/18 07/26/19 07/26/19 ranitidine HCl 300 mg PO HS 03/09/18 07/26/19 Unknown selegiline HCl 5 mg PO BID 03/09/18 07/26/19 07/26/19 sertraline 100 mg PO DAILY 03/09/18 07/26/19 07/26/19 simvastatin 40 mg PO HS 03/09/18 07/26/19 03/08/18 aspirin 81 mg tablet,delayed 81 mg PO DAILY 03/18/19 07/26/19 07/26/19 release ipratropium 0.5 mg-albuterol 3 mg 3 ml INH UD 03/18/19 07/26/19 07/26/19 (2.5 mg base)/3 mL nebulization soln ketoconazole 2 % topical cream 1 appln TOP HS 03/18/19 07/26/19 Unknown omeprazole 40 mg capsule,delayed 40 mg PO QAM 03/18/19 07/26/19 07/26/19 release furosemide 20 mg PO DAILY PRN 07/26/19 07/26/19 Unknown nitroglycerin 1 patch TRANSDERMAL QA 07/26/19 07/26/19 Unknown Active Medications Generic Name Dose Route Start Last Admin Trade Name Freq PRN Reason Stop Dose Admin Aspirin 81 mg 07/27/19 09:00 07/30/19 08:13 Ecotrin Ectab PO 08/26/19 08:59 81 mg DAILY ANITA Administration Carbidopa/Levodopa 1 tab 07/27/19 09:00 07/30/19 20:52 Sinemet 25/100 Mg PO 08/26/19 08:59 1 tab TID ANITA Administration Docusate Sodium 100 mg 07/27/19 09:00 07/30/19 20:51 Colace PO 08/26/19 08:59 100 mg BID ANITA Administration Felodipine 2.5 mg 07/27/19 21:00 07/30/19 20:51 Plendil PO 08/26/19 20:59 2.5 mg QPM ANITA Administration Furosemide 20 mg 07/28/19 09:00 07/30/19 08:13 Lasix PO 08/27/19 08:59 20 mg MOWEFR ANITA Administration Heparin Sodium (Porcine) 5,000 units 07/27/19 06:00 07/30/19 14:19 Heparin Sodium (Porcine) SQ 08/26/19 05:59 5,000 units Q8 ANITA Administration Piperacillin Sod/Tazobactam 115 mls @ 28.75 mls/hr 07/27/19 06:00 07/31/19 05:58 Sod 3.375 gm/ Dextrose IV 08/03/19 05:59 28.8 mls/hr Q8H ANITA Administration Protocol Ipratropium [place] 0.5 mg 07/27/19 07:00 07/31/19 07:18 Atrovent 0.02% 0.5mg/2.5ml INH 08/26/19 06:59 Not Given Q6R ANITA Ketoconazole 1 appln 07/27/19 21:00 07/30/19 20:50 Nizoral 2% EXT 08/06/19 20:59 1 appln HS ANITA Administration Levalbuterol HCl 1.25 mg 07/27/19 07:00 07/31/19 07:18 Xopenex 1.25mg/0.5ml Neb INH 08/26/19 06:59 Not Given Q6R ANITA Levothyroxine Sodium 88 mcg 07/27/19 06:30 07/31/19 05:58 Synthroid PO 08/26/19 06:29 88 mcg DAILYBB ANITA Administration Lisinopril 2.5 mg 07/27/19 09:00 07/30/19 08:12 Zestril PO 08/26/19 08:59 2.5 mg QAM ANITA Administration Metoprolol Succinate 50 mg 07/27/19 09:00 07/30/19 08:12 Toprol Xl PO 08/26/19 08:59 50 mg DAILY ANITA Administration Miscellaneous 1 ea 07/27/19 01:45 07/30/19 20:56 Remove Nitro-Dur Patch N/A 08/26/19 01:44 1 ea DAILY@2100 ANITA Administration Nitroglycerin 1 patch 07/27/19 09:00 07/30/19 08:14 Nitro-Dur 0.4mg/Hr TD 08/26/19 08:59 1 patch QAM ANITA Administration Nortriptyline HCl 100 mg 07/27/19 21:00 07/30/19 20:49 Pamelor PO 08/26/19 20:59 100 mg HS ANITA Administration Pantoprazole Sodium 40 mg 07/27/19 09:00 07/30/19 08:12 Protonix PO 08/26/19 08:59 40 mg QAM ANITA Administration Potassium Chloride 10 meq 07/27/19 09:00 07/30/19 08:13 Klor-Con M10 PO 08/26/19 08:59 10 meq DAILY ANITA Administration Selegiline HCl 5 mg 07/27/19 09:00 07/30/19 20:54 Eldepryl PO 08/26/19 08:59 5 mg BID ANITA Administration Sertraline HCl 100 mg 07/27/19 09:00 07/30/19 08:14 Zoloft PO 08/26/19 08:59 100 mg DAILY ANITA Administration Simvastatin 40 mg 07/27/19 21:00 07/30/19 20:51 Zocor PO 08/26/19 20:59 40 mg HS ANITA Administration NPO Date Last Intake of Fluids: 07/31/19 Time Last Intake of Fluids: 00:00 Date Last Intake of Solids: 07/30/19 Time Last Intake of Solids: 20:00 Past Medical History Medical History Aortic stenosis, moderate CAD (coronary artery disease) (Chronic) 2001 - S/P CABG x 3 2006 -cardiac catheterization demonstrated severe diffuse disease CKD (chronic kidney disease), stage III (Chronic) COPD (chronic obstructive pulmonary disease) SOB, hx/o COPD. Nebulizers and steroids this admission. Supplemental oxygen. Depression (Chronic) Dyslipidemia (Chronic) GERD (gastroesophageal reflux disease) (Chronic) Hypertension (Chronic) Hypothyroidism (Chronic) Ischemic cardiomyopathy (Chronic) EF 50% per hospitalist history and physical. 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) Splenic lesion Exercise / Class Metabolic Activity III < 4 Walking/Shop/Light housework Past Surgical History Surgical History H/O bilateral inguinal hernia repair (Chronic) Hx of cholecystectomy (Chronic) S/P CABG x 3 (Chronic) Social History Smoking Status: Former smoker tobacco type: smokeless tobacco Do You Dip or Chew Tobacco: Yes Hx Alcohol Use: No Hx Substance Use: No substance use type: does not use Physical Exam Vital Signs Last Vital Signs Temp 36.9 C 07/31/19 03:36 Pulse 64 07/31/19 03:36 Resp 19 07/31/19 03:36 BP 144/69 H 07/31/19 03:36 Pulse Ox 93 07/31/19 03:36 Testing Laboratory Results 07/31/19 05:47 07/31/19 05:47 PT 10.3 Seconds (9.0-12.0) 07/26/19 22:09 INR 1.0 (0.9-1.1) 07/26/19 22:09 APTT 22.5 Seconds (21.0-31.0) 07/26/19 22:09 Urine Color Yellow 07/26/19 Unknown Urine Appearance Clear (Clear) 07/26/19 Unknown Urine pH 5.0 (4.5-7.5) 07/26/19 Unknown Ur Specific Flora 1.022 (1.000-1.030) 07/26/19 Unknown Urine Protein Negative (Negative) 07/26/19 Unknown Urine Glucose (UA) Negative (Negative) 07/26/19 Unknown Urine Ketones Negative (Negative) 07/26/19 Unknown Urine Nitrite Negative (Negative) 07/26/19 Unknown Ur Leukocyte Esterase Trace (Negative) H 07/26/19 Unknown Urine WBC (Auto) 5-10 /hpf (0-5) H 07/26/19 Unknown Urine RBC (Auto) 0-4 /hpf (0-4) 07/26/19 Unknown U Hyaline Cast (Auto) 1-5 /lpf (0-5) 07/26/19 Unknown U Epithel Cells (Auto) 10-20 /lpf (0-5) H 07/26/19 Unknown Urine Bacteria (Auto) Negative (Negative) 07/26/19 Unknown 07/29/19 08:25 Aerobic Blood Culture - Preliminary Blood No growth in Aerobic bottle after 24 hours. Anaerobic Blood Culture - Preliminary No growth in Anaerobic bottle after 24 hours. 07/29/19 08:17 Aerobic Blood Culture - Preliminary Blood No growth in Aerobic bottle after 24 hours. Anaerobic Blood Culture - Preliminary No growth in Anaerobic bottle after 24 hours. 07/26/19 22:28 Aerobic Blood Culture - Preliminary Blood No growth in Aerobic bottle after 48 hours. Anaerobic Blood Culture - Preliminary Klebsiella pneumoniae 07/26/19 22:23 Aerobic Blood Culture - Final Blood Klebsiella pneumoniae Anaerobic Blood Culture - Final Klebsiella pneumoniae Escherichia coli Electrocardiogram Date: 07/26/19 paced rhythm 98 Chest X-Ray Date: 07/29/19 Findings: + cardiomegaly (Mild)
--- NOTE | 2019-07-31 07:35 | History & Physical Bridge Note ---
Date of Service July 31, 2019 History & Physical Bridge Note I have examined the patient, reviewed the History & Physical and in the interval since the performance of the History & Physical I have noted the following changes of clinical significance: no changes noted ERCP today
[2019-07-31] MEDS ORDERED: SUCCINYLCHOLINE 100MG/5ML SYR ONE (07:51)
--- NOTE | 2019-07-31 08:06 | Operative Report ---
Post Operative Report Pre & Post Diagnosis Operation Date: 07/28/19 09:40 Pre-Op Diagnosis: Sepsis, cholangitis Post-Op Diagnosis: Sepsis, cholangitis Operation Date: 07/31/19 07:30 Pre-Op Diagnosis: cholangitis Post-Op Diagnosis: cholangitis I identified the patient and participated in the time-out.: Yes Procedure Operation Date: 07/28/19 09:40 Actual Procedures p Endoscopic Retrograde Cholangiopancreatogram - Ean Chavez MD Operation Date: 07/31/19 07:30 Actual Procedures p Endoscopic Retrograde Cholangiopancreatogram with stent placement(Not Applicable) - Ean Chavez MD Surgeon Ean Chavez MD Conversion Man None Estimated Blood Loss 0 Findings See Below (CBD sludge removed) Specimens None Description of Procedure ERCP I attest to the content of the Intraoperative Record and any orders documented therein. Any exceptions are noted below.
--- NOTE | 2019-07-31 08:43 | Fluoroscopy Report ---
[place] ERCP biliary ductal CLINICAL HISTORY: ERCP COMPARISON STUDY: 07/28/2019 FLUOROSCOPY TIME: 27 seconds. NUMBER OF FLUOROSCOPIC IMAGES: 4 FINDINGS: Fluoroscopic spot images demonstrate catheterization of the common bile duct with contrast injection. Image #2 demonstrates a balloon catheter within the mid aspect of the common bile duct. Th ere is mild ductal dilatation. There is a small amount of debris within the common bile duct. The fin al image demonstrates placement of a biliary enteric stent. IMPRESSION: ERCP with placement of a biliary enteric stent ACT 112: Negative or not required by law. Electronically signed by: Art Sparks M.D. 07/31/2019 8:41 AM
--- NOTE | 2019-07-31 08:56 | Anesthesiology Progress Note ---
Date of Service July 31, 2019 Anesthesia Post Procedure Vital Signs Vital Signs: Temp Pulse Pulse Pulse Resp BP Pulse Ox 07/31/19 08:53 36.3 C L 65 16 142/66 H 99 07/31/19 08:45 62 14 136/68 100 07/31/19 08:35 65 15 139/66 100 07/31/19 08:25 67 20 129/68 100 07/31/19 08:17 36.6 C 64 14 138/68 100 07/31/19 03:36 36.9 C 64 19 144/69 H 93 07/31/19 01:02 67 16 95 07/31/19 00:07 37.1 C 66 16 159/80 H 96 07/30/19 19:31 36.7 C 73 18 147/76 H 94 07/30/19 19:18 66 18 96 07/30/19 16:09 79 07/30/19 15:35 36.6 C 73 18 145/65 H 94 07/30/19 13:13 87 18 95 07/30/19 11:46 36.6 C 76 20 152/77 H 95 Transfer of Care Handoff Completed per policy Notes Mental Status: alert / awake / arousable Patient Amnestic to Procedure: Yes Nausea / Vomiting: adequately controlled Pain: adequately controlled Airway Patency, RR, SpO2: stable & adequate BP & HR: stable & adequate Hydration State: stable & adequate Anesthetic Complications: no major complications apparent
--- NOTE | 2019-07-31 09:10 | GI REPORT ---
Patient Name: Cristopher Julio Procedure Date: 07/31/2019 7:35 AM Date of : 1935 Admit Type: Inpatient Age: 84 Gender: Male Attending MD: Ean Chavez MD Procedure: ERCP Providers: Ean Chavez MD Referring MD: Jared Gary Indications: Evaluation and possible treatment of bile duct stone(s), For therapy of ascending cholangitis, Elevated liver enzymes Medicines: General Anesthesia Complications: No immediate complications. Estimated Blood Loss: Estimated blood loss: none. Procedure: Pre-Anesthesia Assessment: - Prior to the procedure, a History and Physical was performed, and patient medications, allergies and sensitivities were reviewed. The patient's tolerance of previous anesthesia was reviewed. - The risks and benefits of the procedure and the sedation options and risks were discussed with the patient. All questions were answered and informed consent was obtained. - Patient identification and proposed procedure were verified prior to the procedure by the physician and the nurse. The procedure was verified in the procedure room. - Pre-procedure physical examination revealed no contraindications to sedation. After obtaining informed consent, the scope was passed under direct vision. Throughout the procedure, the patient's blood pressure, pulse, and oxygen saturations were monitored continuously. The SCOPE was introduced through the mouth, and advanced to the duodenum and used to inject contrast into the bile duct. The ERCP was accomplished without difficulty. The patient tolerated the procedure well. Findings: A commercial litigation attorney film of the abdomen was obtained. Surgical clips, consistent with a previous cholecystectomy, were seen in the area of the right upper quadrant of the abdomen. The esophagus was successfully intubated under direct vision. The scope was advanced to a normal major papilla in the descending duodenum without detailed examination of the pharynx, larynx and associated structures, and upper GI tract. The upper GI tract was grossly normal. A 0.035 inch straight standard wire was passed into the biliary tree. The 8.5 mm balloon was passed over the guidewire and the bile duct was then deeply cannulated. Contrast was injected. I personally interpreted the bile duct images. Ductal flow of contrast was adequate. Image quality was adequate. Contrast extended to the main bile duct. The main bile duct was moderately dilated. The largest diameter was 9 mm. The biliary tree was swept with a 12 mm balloon starting at the bifurcation. Sludge was swept from the duct. One 10 Fr by 9 cm plastic biliary stent with a single external flap and a single internal flap was placed into the common bile duct. Bile flowed through the stent. The stent was in good position. PD not cannulated. Impression: - The biliary tree was swept and sludge was found. One plastic biliary stent was placed into the common bile duct in voew of cholangitis. Recommendation: - Return patient to hospital block for ongoing care. - Repeat ERCP in 6 weeks to remove stent. - Monitor LFTs. - Recall Gi if needed. Ean Chavez MD 07/31/2019 9:10:15 AM This report has been signed electronically. Note Initiated On: 07/31/2019 7:35 AM Number of Addenda: 0 I attest to the content of the Intraoperative Record and orders documented therein, exceptions below {[id number]}
[2019-07-31] MEDS: POTASSIUM CHLORIDE 10 MEQ TABCR PO SCH (10:11)
[2019-07-31] MEDS: METOPROLOL SUCC 50MG EXT REL TAB PO SCH (10:11)
[2019-07-31] MEDS: CARBIDOPA/LEVODOPA 25/100MG TAB PO SCH ×2 (10:12→13:21)
[2019-07-31] MEDS: SERTRALINE HCL 100 MG TABLET PO SCH (10:12)
[2019-07-31] MEDS: SELEGILINE HCL 5 MG TAB PO SCH (10:12)
[2019-07-31] MEDS: DOCUSATE SODIUM 100 MG CAP PO SCH (10:13)
[2019-07-31] MEDS: PANTOprazole 40 MG TAB PO SCH (10:13)
[2019-07-31] MEDS: NITROGLYCERIN 0.4 MG/HR PATCH TD SCH (10:14)
[2019-07-31] MEDS: HEPARIN SOD 5,000 UNIT/0.5 ML VIAL SQ SCH (13:21)
--- NOTE | 2019-07-31 17:29 | Hospitalist Progress Note ---
Date of Service July 31, 2019 Assessment & Plan (1) Gram negative sepsis: Presented with fever and abdominal pain. Met criteria for sepsis per current CMS guidelines (fever, tachycardia). Hemodynamically stable. WBC normal. Serum lactate 1.4. Blood cultures obtained. Received broad spectrum antibiotic coverage with piperacillin / tazobactam. LFTs elevated. Ultrasound of liver showed surgical absence of gallbladder, pneumobilia. Blood cultures grew gram-negative bacilli (present on admission). Suspected source of sepsis = cholangitis. ID and GI consulted. ERCP performed 07/28. Found to have choledocholithiasis. Extension sphincterotomy with balloon extraction of stones performed. Blood cultures grew Klebsiella pneumoniae and E coli, pansensitive. Repeat blood cultures drawn 07/29- negative at 48 hours. Transition to amoxicillin / clavulanic acid to complete 14 days of therapy. (2) Choledocholithiasis with obstruction: Choledocholithiasis 07/28/19 as noted above. LFT's fahad on 07/30/19. Repeat ERCP 07/31/19 showed some biliary sludge. Biliary stent placed. Follow-up ERCP with stent removal in about 6 weeks. (3) Cholangitis: As noted above. (4) Elevated LFTs: 07/26/19 07/30/19 07/31/19 22:09 06:43 05:47 Total Bilirubin 0.6 2.9 H D 1.6 H AST 138 H 308 H 173 H ALT 107 H 100 H 77 Alkaline Phosphatase 298 H 222 H 256 H Management as noted above. Recheck in clinic. (5) CAD (coronary artery disease): No anginal symptoms. Continue aspirin, metoprolol, lisinopril, statin. (6) Ischemic cardiomyopathy: Chronic left ventricular systolic heart failure. Few bibasilar rales. Chest x-ray showed chronic changes. (7) Hypertension: Hemodynamically stable. Continue metoprolol, felodipine, lisinopril. (8) COPD (chronic obstructive pulmonary disease): Pulmonary status stable. (9) CKD (chronic kidney disease), stage III: Creatinine today = 1.60. Follow. (10) Hypothyroidism: Continue levothyroxine. (11) Parkinson's disease: Continue carbidopa/levodopa and selegiline. (12) DVT prophylaxis: Received SQ heparin. Ambulate. (13) Discharge planning issues: Discharge to home. Family Medicine follow-up with Dr. Mullen. Follow-up ERCP 6 weeks. Admission and Anticipated Discharge Date Admission Date: July 27, 2019 Subjective Recheck for multiple problems. Patient seen in their room around 1530. ERCP performed this morning; biliary stent placed. Feels well. No fever, abdominal pain, nausea, vomiting. Ready to go home. Physical Exam Constitutional: no acute distress Respiratory: no respiratory distress Auscultation: + rales (few bibasilar) Cardiovascular: Rate/Rhythm: regular rate and regular rhythm Heart Sounds: + murmur (III/ systolic murmur at base and LSB); no gallop and no cardiac rub Vessels: no JVD Extremities: no calf tenderness and no edema Gastrointestinal (Abdomen): normal bowel sounds, soft, nontender, no hepatosplenomegaly Musculoskeletal: Extremities: no cyanosis Skin: no rashes, warm and dry Psychiatric: Orientation: alert and oriented x 3 Results & Data ([facility]) Vital Signs (Past 12 Hours) Vital Signs Temp Pulse Pulse Pulse Resp BP BP 07/31/19 15:28 36.6 C 66 16 118/64 07/31/19 13:41 65 16 07/31/19 12:50 65 07/31/19 12:46 36.6 C 66 20 117/65 07/31/19 08:53 36.3 C L 65 16 142/66 H 07/31/19 08:45 62 14 136/68 07/31/19 08:35 65 15 139/66 07/31/19 08:25 67 20 129/68 07/31/19 08:17 36.6 C 64 14 138/68 Pulse Ox 07/31/19 15:28 94 07/31/19 13:41 96 07/31/19 12:50 07/31/19 12:46 95 07/31/19 08:53 99 07/31/19 08:45 100 07/31/19 08:35 100 07/31/19 08:25 100 07/31/19 08:17 100 Laboratory Results 07/31/19 05:47 07/31/19 05:47
--- NOTE | 2019-08-01 08:30 | Discharge Summary ---
Date of Service Date of Admission: 07/27/19 Date of Discharge: 07/31/19 Admission HPI Per Admitting Provider This is an 84-year-old male with past medical history significant for hypothyroidism, hyperlipidemia, ischemic cardiomyopathy, chronic kidney disease stage III, systolic CHF, severe mitral regurgitation, moderate aortic stenosis, hypertension, GERD, Parkinson's disease, depression, CAD status post CABG, biventricular defibrillator, obstructive sleep apnea, supposed to use oxygen at nighttime which the patient is not using it, who lives with his , ambulates without any support, has some difficulty swallowing with his Parkinson's, but he is on regular diet.. Was brought in because he was complaining of shortness of breath, abdominal discomfort at home and he has some dry cough, but he could not bring any phlegm out and his put his oxygen on him and seemed to improve and brought him here. It seemed to like his oxygen sat was only 60% at home. In the ER currently, when he came in, he is currently requiring 4 liters oxygen and saturating okay. Speaking in full sentences. Has Parkinson's, has some dementia, some tremors in his hands, but vitals are okay currently. Denies any fever or chills. He says the shortness of breath and abdominal pain started the same time, but they are both resolved now. Denies any diarrhea. He has constipation. He goes bowel movements every 2-3 days, last bowel movement was yesterday and was normal. Normal bladder movements. No swelling in the legs, no rash seen. Denies any headache. Vision is okay. No runny nose, no sore throat. Denies any chest pain. He was spiking temperature in the ER, T-max of 39.5. Flu was negative. Received nebs, Tylenol and steroids in the ER, seems to be stable at this time. Principal Diagnosis sepsis cholangitis choledocholithiasis Discharge Data Allergies Allergy/AdvReac Type Severity Reaction Status Date / Time haloperidol Allergy Unknown LOSS OF Verified 07/26/19 23:36 VISION Consultations 07/26/19 23:10 ED Decision to Admit Stat 07/27/19 01:20 Consult Case Management - Discharge Planning Routine 07/27/19 13:04 Consult Infectious Diseases Routine 07/27/19 13:06 Consult Gastroenterology Routine Procedures Performed Operation Date: 07/28/19 09:40 Actual Procedures p Endoscopic Retrograde Cholangiopancreatogram - Ean Chavez MD Operation Date: 07/31/19 07:30 Actual Procedures p Endoscopic Retrograde Cholangiopancreatogram with stent placement(Not Applicable) - Ean Chavez MD Ordered Studies 07/27/19 00:35 CT abd pelvis wo con Urgent 07/27/19 13:42 US liver Routine 07/27/19 13:43 US duplex mesenteric Routine 07/28/19 13:00 FL ERCP biliary ductal Routine 07/29/19 11:15 FL video swallow Routine 07/31/19 07:30 FL ERCP biliary ductal Routine Hospital Course (1) Gram negative sepsis: Presented with fever and abdominal pain. Met criteria for sepsis per current CMS guidelines (fever, tachycardia). Hemodynamically stable. WBC normal. Serum lactate 1.4. Blood cultures obtained. Received broad spectrum antibiotic coverage with piperacillin / tazobactam. LFTs elevated. Ultrasound of liver showed surgical absence of gallbladder, pneumobilia. Blood cultures grew gram-negative bacilli (present on admission). Suspected source of sepsis = cholangitis. ID and GI consulted. ERCP performed 07/28. Found to have choledocholithiasis. Extension sphincterotomy with balloon extraction of stones performed. Blood cultures grew Klebsiella pneumoniae and E coli, pansensitive. Repeat blood cultures drawn 07/29- negative at 48 hours. Transition to amoxicillin / clavulanic acid to complete 14 days of therapy. (2) Choledocholithiasis with obstruction: Choledocholithiasis 07/28/19 as noted above. LFT's fahad on 07/30/19. Repeat ERCP 07/31/19 showed some biliary sludge. Biliary stent placed. Follow-up ERCP with stent removal in about 6 weeks. (3) Cholangitis: As noted above. (4) Elevated LFTs: 07/26/19 07/30/19 07/31/19 22:09 06:43 05:47 Total Bilirubin 0.6 2.9 H D 1.6 H AST 138 H 308 H 173 H ALT 107 H 100 H 77 Alkaline Phosphatase 298 H 222 H 256 H Management as noted above. Recheck in clinic. (5) CAD (coronary artery disease): No anginal symptoms. Continue aspirin, metoprolol, lisinopril, statin. (6) Ischemic cardiomyopathy: Chronic left ventricular systolic heart failure. Few bibasilar rales. Chest x-ray showed chronic changes. (7) Hypertension: Hemodynamically stable. Continue metoprolol, felodipine, lisinopril. (8) COPD (chronic obstructive pulmonary disease): Pulmonary status stable. (9) CKD (chronic kidney disease), stage III: Creatinine day of discharge 1.60. Follow. (10) Hypothyroidism: Continue levothyroxine. (11) Parkinson's disease: Continue carbidopa/levodopa and selegiline. (12) DVT prophylaxis: Received SQ heparin. Ambulate. (13) Discharge planning issues: Discharged to home. Family Medicine follow-up with Dr. Mullen. Follow-up ERCP 6 weeks. Total Time Total Time Spent Total Time Spent (In Minutes): 45 Discharge Plan Discharge Items Patient Disposition: Home - Home Health Services Reason For Visit: abdominal pain Discharge Diagnosis: cholangitis- stones and infection in bile duct Condition on Discharge: Good Activity: Resume your previous activity Non-emergency contact: Primary Care Provider, Hospitalist and [employer] Call non-emergency contact if: you have any medication questions, your symptoms worsen and your temperature is above 101 Follow-up/Referrals: Olegario Mullen MD [Primary Care Provider] - (08/04/2019 11:20 AM lOegario Mullne MD) Diet: Heart Healthy Addtl Attending Provider Instructions: MEDICATION CHANGES: Take amoxicillin / clavulanic acid (Augmentin) twice a day with food until gone. SUMMARY OF TEST RESULTS: Blood cultures showed infection in your bloodstream from bile duct. ERCP showed bile stones in bile duct. RECOMMENDATIONS FOR FOLLOW-UP: Stent was placed in bile duct. Repeat ERCP will be scheduled in about 6 weeks to remove stent. OTHER INSTRUCTIONS: Seek medical attention if you have: * temperature above 101 * chest pain or trouble breathing * abdominal pain, nausea, vomiting * diarrhea, dark stools or bloody stools * any unanswered questions or concerns Call 911 if symptoms are severe. Please take good care of yourself. Call if you have any questions or problems. You can reach a [facility] hospitalist on duty at [facility] 24 hours a day by calling [phone]. My cell # is [phone]. Pending Studies at Discharge: No Stand-Alone Forms: My [facility], Smoking Cessation Medications and DC Order Prescriptions: New amoxicillin-pot clavulanate 875-125 mg tablet 1 tab PO BID Qty: 20 RF: 0 Continued omeprazole 40 mg capsule,delayed release(DR/EC) 40 mg PO QAM RF: 0 ipratropium-albuterol 0.5 mg-3 mg(2.5 mg base)/3 mL solution for nebulization 3 ml INH UD RF: 0 aspirin [Adult Low Dose Aspirin] 81 mg tablet,delayed release (DR/EC) 81 mg PO DAILY RF: 0 ketoconazole 2 % cream 1 appln TOP HS RF: 0 potassium chloride 10 mEq Capsule, Extended Release 10 meq PO DAILY RF: 0 felodipine 2.5 mg Tablet Extended Release 24 Hr 2.5 mg PO QPM RF: 0 metoprolol succinate 50 mg tablet extended release 24 hr 50 mg PO DAILY RF: 0 sertraline 100 mg Tablet 100 mg PO DAILY RF: 0 simvastatin 40 mg Tablet 40 mg PO HS RF: 0 nitroglycerin 0.4 mg Tablet, Sublingual 0.4 mg Sublingual DIRECTED PRN (Reason: Chest Pain) RF: 0 lisinopril 5 mg Tablet 2.5 mg PO QAM RF: 0 furosemide 20 mg Tablet 20 mg PO MOWEFR RF: 0 carbidopa-levodopa 25-100 mg Tablet 1 tab PO TID RF: 0 docusate sodium 100 mg Tablet 100 mg PO BID RF: 0 nortriptyline 50 mg Capsule 100 mg PO HS RF: 0 selegiline HCl 5 mg Capsule 5 mg PO BID RF: 0 levothyroxine 88 mcg Capsule 88 mcg PO DAILY RF: 0 furosemide 20 mg Tablet 20 mg PO DAILY PRN (Reason: Edema) RF: 0 nitroglycerin 0.4 mg/hr patch 24 hour 1 patch transdermal QAM RF: 0 famotidine 40 mg Tablet 40 mg PO DAILY RF: 0 Discharge Orders: Discharge Order (Routine); Ordered 07/31/19 Ordered By: Jared Gary Admission Data Admit Date/Time: 07/27/19 00:20 Attending Provider: Jared Gary Admit Provider: Maikel Rodriguez Primary Care Provider: Olegario Mullen Other Providers: Mehreen Moreno ; [facility] ; Maikel Rodriguez ; Seema Peña ; Travis Hopper ; Magalis Hoff ; Wild Chandra ; Gissel Gill ; Kashif Logan ; Thai London ; Ary Hughes ; Nessa Baum ; Ciro Abdalla ; Cristopher Cook ; Cassie Reynolds ; Kell Batista ; Jayla Mo ; Rain Bolivar ; Ean Chavez Other Interventions: Discharge Summary Assessment (RN) Last Done: 07/31/19 17:57 DC Date/Time DO NOT enter until pt leaves facility: 07/31/19 18:58
== END 2019-07-31 18:58 | disposition home health service (06) | DRG 872 ==
LOC: ED 21:53 → 2N 07-27 00:20 → SUATTDRO 07-27 00:20 → 2N 07-27 00:36

== ENCOUNTER 2021-04-06 16:16 | Inpatient (IN) ==
--- NOTE | 2021-04-06 16:59 | Emergency Department Note ---
Impression & Plan COVID-19 ADMIT ED Provider Note HPI: The patient is a very pleasant 85-year-old gentleman with history of coronary artery disease, status post CABG, history of ischemic cardiomyopathy with reduced ejection fraction, presents the emergency department with worsening shortness of breath over the past several days. Patient has a history of dementia and he is a poor historian, his daughter at the bedside tells me that he has become increasingly short of breath over the past several weeks. He does have a supplemental oxygen requirement at home that he wears at night and as needed, here in the ED he displays significant increased work of breathing although his oxygen saturation is in the mid 90s on room air. He denies any chest pain. He is otherwise with stable blood pressure and normal HR on arrival here to the ED. ROS: -Pulmonary: Increased work of breathing, dyspnea on exertion *10 point review systems was conducted and is otherwise negative unless stated above *Outpatient medications and allergy history reviewed PE: General: Alert HEENT: Normocephalic, atraumatic, trachea midline Eyes: Extraocular eye movement is intact, no scleral erythema Pulmonary: Diminished bilaterally with tachypnea Cardio: Regular rate and rhythm GI: Abdomen is soft, nontender : No suprapubic tenderness MSK: No evidence of trauma or malformation of the extremities, no edema Skin: No evidence of rash Neuro: Alert, no focal deficits Psychiatric: Cooperative phototypesetting equipment monitor: Order placed, patient is in sinus rhythm on the monitor EKG: Time: 1715 Rate: 76 Rhythm: Paced rhythm Ischemic changes: No ischemic changes Intervals: [place] interval within normal limits, QRS 174 ms, QTC 587 ms Medical Decision Making: Patient presented to the emergency department with some increased work of breathing, he has a history of dementia, he is a poor historian. On arrival he is saturating well on room air but he does display some mild respiratory distress, he was placed on nasal cannula oxygen with good improvement. Chest x- ray shows evidence of an effusion, COVID-19 testing was performed and is positive. CT angiography of the chest was then performed given the patient's increased work of breathing and this does not show any evidence of pulmonary embolism. Troponin is negative x1, EKG does not show any acute ischemic changes, he is noted to have a pacemaker. On my reassessment the patient continues to have some mild increased work of breathing although his oxygen saturations remained stable on nasal cannula, he states he does feel somewhat improved. I discussed these above findings with the patient and his daughter at the bedside, at this time he is displaying significant increased work of breathing with minimal exertion, although he is not a candidate for any monoclonal antibody therapy I do not think he is safe for discharge home given his increased work of breathing and multiple comorbidities. Patient's daughter at the bedside states that she to does prefer admission at this time. Given this, I did discuss the above findings with the on-call hospitalist, Dr. Hooks, who accepted the patient to an inpatient bed for further care. Patient was admitted in stable condition. * Diagnosis: COVID-19, dyspnea on exertion * Disposition: Admission Sergio Rodgers DO Emergency Medicine Past Med/Surg History Medical History (Updated 04/07/21 @ 00:09 by Sergio Rodgers DO) Aortic stenosis, moderate Moderate/severe per 10/2019 ECHO CAD (coronary artery disease) 2001 - S/P CABG x 3 (OWEN-LAD, SVG-OM, SVG-PDA) 2006 -cardiac catheterization demonstrated severe diffuse disease with patent OWEN to LAD with occluded SVGs to the OM and PDA. 60% stenosis of LCX, severely diseased RCA with prox stenosis, 100% occlusion in mid RCA and distal filling via right to right bridging collaterals and left to right collaterals arising from LCX CKD (chronic kidney disease), stage III COPD (chronic obstructive pulmonary disease) SOB, hx/o COPD. Supplemental oxygen -- pt does not use. Depression Falls frequently GERD (gastroesophageal reflux disease) Hyperlipidemia Hypertension Hypothyroidism Ischemic cardiomyopathy EF 50% per hospitalist history and physical. Loss of balance following with Dr. Villasenor. Myocardial Infarction 2001 --> CABG x3 JOVITA (obstructive sleep apnea) Osteoarthritis 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 defibrillator (ICD) and pacemaker Splenic lesion Stable angina Surgical History H/O bilateral inguinal hernia repair History of colonoscopy History of ERCP History of implantable cardioverter-defibrillator (ICD) insertion last checked ~1 month ago at Cardio office Hx of cholecystectomy S/P CABG x 3 2001 Family History Mother , age 83 of heart issues. 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 [employer] Feels Safe at Home: Yes Assistive Devices: Denture - Upper, Denture - Lower and Glasses Allergies Allergies Allergy/AdvReac Type Severity Reaction Status Date / Time haloperidol Allergy Intermediate LOSS OF Verified 04/06/21 20:15 VISION Home Meds Home Medications Medication Instructions Recorded Confirmed docusate sodium 100 mg tablet 100 mg PO DAILY PRN 03/09/18 04/06/21 levothyroxine 88 mcg capsule 88 mcg PO QAM 03/09/18 04/06/21 metoprolol succinate 50 mg 50 mg PO QAM 03/09/18 04/06/21 tablet,extended release 24 hr nitroglycerin 0.4 mg sublingual 0.4 mg SUBLINGUAL DIRECTED PRN 03/09/18 04/06/21 tablet nortriptyline 50 mg capsule 100 mg PO HS 03/09/18 04/06/21 sertraline 100 mg tablet 100 mg PO QAM 03/09/18 04/06/21 simvastatin 40 mg tablet 40 mg PO HS 03/09/18 04/06/21 aspirin 81 mg tablet,delayed 81 mg PO QAM 03/18/19 04/06/21 release (Adult Low Dose Aspirin) ketoconazole 2 % topical cream 1 appln TOP UD 03/18/19 04/06/21 omeprazole 40 mg capsule,delayed 40 mg PO QAM 03/18/19 04/06/21 release famotidine 40 mg tablet 40 mg PO QAM 07/31/19 04/06/21 cyanocobalamin (vitamin B-12) 1,000 mcg PO DAILY 03/08/21 04/06/21 1,000 mcg capsule isosorbide mononitrate 60 mg 60 mg PO DAILY 03/08/21 04/06/21 tablet,extended release 24 hr furosemide 20 mg tablet 20 mg PO DAILY 03/22/21 04/06/21 potassium chloride 10 mEq 10 meq PO QAM 03/22/21 04/06/21 capsule,extended release Previous Rx's Medication Instructions Recorded Oxygen Home #1 ea 03/22/21 ipratropium 0.5 mg-albuterol 3 mg 3 ml INH UD PRN #360 ml 03/22/21 (2.5 mg base)/3 mL nebulization soln nebulizers #1 ea 03/22/21 Results & Data (ED) Vital Signs Vital Signs - 24 hr 04/06/21 16:18 04/06/21 17:15 04/06/21 18:08 Temperature 36.2 C L Temperature Source Temporal Artery Scan Pulse Rate 82 76 Pulse Rate [Right Finger] 76 Respiratory Rate 16 24 Respiratory Effort / Characteristics SOB on Exertion Respiratory Depth Blood Pressure 103/68 Blood Pressure [Right Arm] 97/74 L Blood Pressure Mean 79 Blood Pressure Mean [Right Arm] 81 Pulse Oximetry 100 94 Oxygen Delivery Method Room Air Room Air Oxygen Flow Rate Sepsis Recent Fever Within 48 Hours No Sepsis New/Unexplained Change in Mental Status No Sepsis Action Taken by Nursing No Action Required 04/06/21 18:10 04/06/21 18:11 04/06/21 18:14 Temperature Temperature Source Pulse Rate Pulse Rate [Right Finger] 77 75 Respiratory Rate 24 24 Respiratory Effort / Characteristics Non-Labored Non-Labored Spontaneous Respiratory Depth Normal Blood Pressure Blood Pressure [Right Arm] 121/64 Blood Pressure Mean Blood Pressure Mean [Right Arm] 83 Pulse Oximetry 94 95 94 Oxygen Delivery Method Room Air Room Air Room Air Oxygen Flow Rate Sepsis Recent Fever Within 48 Hours Sepsis New/Unexplained Change in Mental Status Sepsis Action Taken by Nursing 04/06/21 19:13 04/06/21 19:40 04/06/21 20:11 Temperature Temperature Source Pulse Rate Pulse Rate [Right Finger] 82 86 85 Respiratory Rate 20 22 22 Respiratory Effort / Characteristics Respiratory Depth Blood Pressure Blood Pressure [Right Arm] 125/73 120/79 124/78 Blood Pressure Mean Blood Pressure Mean [Right Arm] 90 92 93 Pulse Oximetry 95 96 93 Oxygen Delivery Method Room Air Room Air Room Air Oxygen Flow Rate Sepsis Recent Fever Within 48 Hours Sepsis New/Unexplained Change in Mental Status Sepsis Action Taken by Nursing 04/06/21 21:27 04/06/21 22:17 04/06/21 23:13 Temperature Temperature Source Pulse Rate Pulse Rate [Right Finger] 85 86 87 Respiratory Rate 22 22 22 Respiratory Effort / Characteristics Respiratory Depth Blood Pressure Blood Pressure [Right Arm] 122/73 111/77 133/87 Blood Pressure Mean Blood Pressure Mean [Right Arm] 89 88 102 Pulse Oximetry 99 100 100 Oxygen Delivery Method Nasal Cannula Nasal Cannula Nasal Cannula Oxygen Flow Rate 3 3 3 Sepsis Recent Fever Within 48 Hours Sepsis New/Unexplained Change in Mental Status Sepsis Action Taken by Nursing 04/06/21 23:27 04/06/21 23:45 Temperature Temperature Source Pulse Rate Pulse Rate [Right Finger] 88 89 Respiratory Rate 25 H 22 Respiratory Effort / Characteristics Spontaneous Short of Breath Respiratory Depth Blood Pressure Blood Pressure [Right Arm] 104/84 Blood Pressure Mean Blood Pressure Mean [Right Arm] 90 Pulse Oximetry 99 100 Oxygen Delivery Method Nasal Cannula Nasal Cannula Oxygen Flow Rate 3 3 Sepsis Recent Fever Within 48 Hours Sepsis New/Unexplained Change in Mental Status Sepsis Action Taken by Nursing Laboratory Data Result diagrams: 04/06/21 17:07 04/06/21 17:07 Lab Results 04/06/21 04/06/21 04/06/21 Range/Units 17:07 17:07 17:07 WBC 5.77 (4.8-10.8) K/uL RBC 3.66 L (4.7-6.1) M/uL Hgb 10.7 L (14.0-18.0) g/dL Hct 33.0 L (42-52) % MCV 90.2 (80-100) fL MCH 29.2 (25-34) pg MCHC 32.4 (32-36) g/dL RDW Std Deviation 57.7 H (36.4-46.3) fL RDW Coeff of Jaja 17.6 H (11.5-14.5) % Plt Count 139 (130-400) K/uL MPV 10.5 H (7.4-10.4) fL Immature Gran % (Auto) 0.2 % Neut % (Auto) 79.1 % Lymph % (Auto) 10.7 % Hooker % (Auto) 8.1 % Eos % (Auto) 1.7 % Baso % (Auto) 0.2 % Neut # (Auto) 4.56 (1.4-6.5) K/uL Lymph # (Auto) 0.62 L (1.2-3.4) K/uL Hooker # (Auto) 0.47 (0.11-0.59) K/uL Eos # (Auto) 0.10 (0-0.5) K/uL Baso # (Auto) 0.01 (0-0.2) K/uL Immature Gran # (Auto) 0.01 (0.00-0.02) K/uL APTT 26.6 (21.0-31.0) Seconds PTT Ratio 1.0 VBG pH (7.36-7.41) VBG pCO2 (38-50) mmHg VBG pO2 mmHg VBG HCO3 mmol/L VBG O2 Saturation % VBG Base Excess mEq/L Barometric Pressure mm/Hg Sodium 141 (136-145) mmol/L Potassium 4.1 (3.5-5.1) mmol/L Chloride 107 (98-107) mmol/L Carbon Dioxide 30 (21-32) mmol/L Anion Gap 4.0 (3-11) BUN 40 H (7-18) mg/dl Creatinine 1.96 H (0.6-1.4) mg/dl Est Cr Clr Drug Dosing 24.8 ml/min Est GFR ( Amer) 35.6 ml/min Est GFR (Non-Af Amer) 30.7 ml/min BUN/Creatinine Ratio 20.4 H (10-20) Glucose 114 H (70-99) mg/dl Calcium 8.7 (8.5-10.1) mg/dl Magnesium Total Bilirubin 0.7 (0.2-1) mg/dl AST 44 H (15-37) U/L ALT 47 (12-78) U/L Alkaline Phosphatase 169 H (45-117) U/L Troponin I < 0.015 (0-0.045) ng/ml NT-Pro-B Natriuret Pep 80581 H (0-1800) pg/ml Total Protein 6.9 (6.4-8.2) gm/dl Albumin 3.2 L (3.4-5.0) gm/dl Globulin 3.7 (2.5-4.0) gm/dl Albumin/Globulin Ratio 0.9 (0.9-2) Lipase 62 L (73-393) U/L COVID-19 Eval Order SARS-CoV-2 (PCR) (Negative) 04/06/21 04/06/21 04/06/21 Range/Units 17:07 17:07 18:04 WBC (4.8-10.8) K/uL RBC (4.7-6.1) M/uL Hgb (14.0-18.0) g/dL Hct (42-52) % MCV (80-100) fL MCH (25-34) pg MCHC (32-36) g/dL RDW Std Deviation (36.4-46.3) fL RDW Coeff of Jaja (11.5-14.5) % Plt Count (130-400) K/uL MPV (7.4-10.4) fL Immature Gran % (Auto) % Neut % (Auto) % Lymph % (Auto) % Hooker % (Auto) % Eos % (Auto) % Baso % (Auto) % Neut # (Auto) (1.4-6.5) K/uL Lymph # (Auto) (1.2-3.4) K/uL Hooker # (Auto) (0.11-0.59) K/uL Eos # (Auto) (0-0.5) K/uL Baso # (Auto) (0-0.2) K/uL Immature Gran # (Auto) (0.00-0.02) K/uL APTT (21.0-31.0) Seconds PTT Ratio VBG pH 7.33 L (7.36-7.41) VBG pCO2 58 H (38-50) mmHg VBG pO2 18 mmHg VBG HCO3 30 mmol/L VBG O2 Saturation < 60.0 % VBG Base Excess 2.6 mEq/L Barometric Pressure 730.7 mm/Hg Sodium (136-145) mmol/L Potassium (3.5-5.1) mmol/L Chloride (98-107) mmol/L Carbon Dioxide (21-32) mmol/L Anion Gap (3-11) BUN (7-18) mg/dl Creatinine (0.6-1.4) mg/dl Est Cr Clr Drug Dosing ml/min Est GFR ( Amer) ml/min Est GFR (Non-Af Amer) ml/min BUN/Creatinine Ratio (10-20) Glucose (70-99) mg/dl Calcium (8.5-10.1) mg/dl Magnesium Cancelled Total Bilirubin (0.2-1) mg/dl AST (15-37) U/L ALT (12-78) U/L Alkaline Phosphatase (45-117) U/L Troponin I (0-0.045) ng/ml NT-Pro-B Natriuret Pep (0-1800) pg/ml Total Protein (6.4-8.2) gm/dl Albumin (3.4-5.0) gm/dl Globulin (2.5-4.0) gm/dl Albumin/Globulin Ratio (0.9-2) Lipase (73-393) U/L COVID-19 Eval Order Covid19 at [facility] SARS-CoV-2 (PCR) (Negative) 04/06/21 Range/Units 18:04 WBC (4.8-10.8) K/uL RBC (4.7-6.1) M/uL Hgb (14.0-18.0) g/dL Hct (42-52) % MCV (80-100) fL MCH (25-34) pg MCHC (32-36) g/dL RDW Std Deviation (36.4-46.3) fL RDW Coeff of Jaja (11.5-14.5) % Plt Count (130-400) K/uL MPV (7.4-10.4) fL Immature Gran % (Auto) % Neut % (Auto) % Lymph % (Auto) % Hooker % (Auto) % Eos % (Auto) % Baso % (Auto) % Neut # (Auto) (1.4-6.5) K/uL Lymph # (Auto) (1.2-3.4) K/uL Hooker # (Auto) (0.11-0.59) K/uL Eos # (Auto) (0-0.5) K/uL Baso # (Auto) (0-0.2) K/uL Immature Gran # (Auto) (0.00-0.02) K/uL APTT (21.0-31.0) Seconds PTT Ratio VBG pH (7.36-7.41) VBG pCO2 (38-50) mmHg VBG pO2 mmHg VBG HCO3 mmol/L VBG O2 Saturation % VBG Base Excess mEq/L Barometric Pressure mm/Hg Sodium (136-145) mmol/L Potassium (3.5-5.1) mmol/L Chloride (98-107) mmol/L Carbon Dioxide (21-32) mmol/L Anion Gap (3-11) BUN (7-18) mg/dl Creatinine (0.6-1.4) mg/dl Est Cr Clr Drug Dosing ml/min Est GFR ( Amer) ml/min Est GFR (Non-Af Amer) ml/min BUN/Creatinine Ratio (10-20) Glucose (70-99) mg/dl Calcium (8.5-10.1) mg/dl Magnesium Total Bilirubin (0.2-1) mg/dl AST (15-37) U/L ALT (12-78) U/L Alkaline Phosphatase (45-117) U/L Troponin I (0-0.045) ng/ml NT-Pro-B Natriuret Pep (0-1800) pg/ml Total Protein (6.4-8.2) gm/dl Albumin (3.4-5.0) gm/dl Globulin (2.5-4.0) gm/dl Albumin/Globulin Ratio (0.9-2) Lipase (73-393) U/L COVID-19 Eval Order SARS-CoV-2 (PCR) NEGATIVE (Negative) Administered Medications Discontinued Medications Albuterol (Albut/Ipratrop 3mg/0.5mg Neb 3 Ml Vial) 3 ml NEB NOW STA Stop: 04/06/21 17:47 Last Admin: 04/06/21 18:14 Dose: 3 ml Documented by: [id number] Albuterol (Albut/Ipratrop 3mg/0.5mg Neb 3 Ml Vial) 3 ml NEB NOW STA Stop: 04/06/21 23:45 Last Admin: 04/06/21 23:51 Dose: 3 ml Documented by: [id number] Ioversol (Optiray 320 125ml) 118 ml IV ONCE ONE Stop: 04/06/21 21:10 Last Admin: 04/06/21 21:17 Dose: 1 ml Documented by: [id number] Methylprednisolone (Methylprednisolone 125 Mg/2 Ml Vial) 125 mg IV NOW STA Stop: 04/06/21 17:47 Last Admin: 04/06/21 18:04 Dose: 125 mg Documented by: [id number] Imaging Data Radiologist's Impression: Chest X-Ray 04/06/21 16:56 XR chest 1V portable CLINICAL HISTORY: Atypical chest pain TECHNIQUE: Single frontal radiograph of the chest was obtained. Comparison: Comparison is made to chest one view 07/29/2019 FINDINGS: Stable median sternotomy wires and pacemaker defibrillator. Cardiomegaly is noted. Bilateral interstitial opacities are again seen. In addition, there is suggestion of airspace opacity in the left lateral lung. Blunting of the left costophrenic angle is again seen compatible with pleural thickening. IMPRESSION: Left pleural thickening and bilateral interstitial opacities compatible with interstitial lung disease. In addition, there may be airspace opacity in the left lateral lung. ACT 112: Negative or not required by law. Electronically signed by: Tim Gordon M.D. 04/06/2021 6:27 PM Chest CTA 04/06/21 20:00 CT angio chest PE protocol CLINICAL HISTORY: PE atypical chest pain. TECHNIQUE: Multidetector row helical CT of the chest was performed. Coronal and sagittal reformations were obtained. Automated dose lowering techniques and/or adjustment according to patient size were utilized for this exam. Comparison: Comparison is made to CT chest 01/08/2021 FINDINGS: Lungs and pleura: Interstitial opacities are seen. There is a moderate right and small left pleural effusion. Calcifications are noted in the left pleura, unchanged from prior exam. Multiple pulmonary nodules are unchanged from prior exam, largest measuring 6 mm in the right upper lobe (series 4 image 193). Heart and pericardium: There is cardiomegaly without evidence of pericardial effusion. Reflux of contrast is seen in the IVC. Vessels: No evidence of pulmonary embolism. Mediastinum and marie: Unremarkable. Chest wall and lower neck: Unremarkable. Abdomen: A small hiatal hernia is seen. Bones: Degenerative changes in the thoracic spine. IMPRESSION: 1. No evidence of pulmonary embolism. 2. Moderate right and small left pleural effusion, increased from prior exam. 3. Redemonstration of chronic interstitial opacities may represent scarring. Stable calcifications in the left pleural. 4. Stable small pulmonary nodules. 5. Cardiomegaly with likely heart failure. ACT 112: Negative or not required by law. Electronically signed by: Tim Gordon M.D. 04/06/2021 9:28 PM Discharge Plan Visit Data Chief Complaint: Shortness of Breath/Dyspnea Stated Complaint: SOB ED Provider: Sergio Rodgers Discharge Problem: COVID-19 Forms Stand Alone Forms: [facility] Prescriptions Prescriptions: No Action ipratropium-albuterol 0.5 mg-3 mg(2.5 mg base)/3 mL solution for nebulization 3 ml INH UD PRN (Reason: SOB) Qty: 360 RF: 3 omeprazole 40 mg capsule,delayed release(DR/EC) 40 mg PO QAM RF: 0 aspirin [Adult Low Dose Aspirin] 81 mg tablet,delayed release (DR/EC) 81 mg PO QAM RF: 0 ketoconazole 2 % cream 1 appln TOP UD RF: 0 (DME) Oxygen Home Liters Per Minute See Rx Instructions .MEDSUPPLY Qty: 1 RF: 0 (DME) nebulizers Misc See Rx Instructions .MEDSUPPLY Qty: 1 RF: 0 furosemide 20 mg tablet 20 mg PO DAILY RF: 0 cyanocobalamin (vitamin B-12) 1,000 mcg capsule 1,000 mcg PO DAILY RF: 0 isosorbide mononitrate 60 mg tablet extended release 24 hr 60 mg PO DAILY RF: 0 metoprolol succinate 50 mg tablet extended release 24 hr 50 mg PO QAM RF: 0 sertraline 100 mg Tablet 100 mg PO QAM RF: 0 simvastatin 40 mg Tablet 40 mg PO HS RF: 0 nitroglycerin 0.4 mg Tablet, Sublingual 0.4 mg Sublingual DIRECTED PRN (Reason: Chest Pain) RF: 0 docusate sodium 100 mg Tablet 100 mg PO DAILY PRN (Reason: Constipation) RF: 0 nortriptyline 50 mg Capsule 100 mg PO HS RF: 0 levothyroxine 88 mcg Capsule 88 mcg PO QAM RF: 0 potassium chloride 10 mEq capsule, extended release 10 meq PO QAM RF: 0 famotidine 40 mg Tablet 40 mg PO QAM RF: 0 Referrals Referrals: Olegario Mullen MD [Primary Care Provider] -
[2021-04-06 17:16] LABS: Basophils # (auto) 0.01 K/uL (0-0.2); Basophils % (auto) 0.2 %; Eosinophils % (auto) 1.7 %; Hemoglobin 10.7 g/dL (14.0-18.0); Immature Granulocytes # (auto) 0.01 K/uL (0.00-0.02); Immature Granulocytes % (auto) 0.2 %; Lymphocytes # (auto) 0.62 K/uL (1.2-3.4); Lymphocytes % (auto) 10.7 %; Mean Corpuscular Hemoglobin 29.2 pg (25-34); Mean Corpuscular Hgb Conc 32.4 g/dL (32-36); Mean Corpuscular Volume 90.2 fL (80-100); Mean Platelet Volume 10.5 fL (7.4-10.4); Monocytes # (auto) 0.47 K/uL (0.11-0.59); Monocytes % (auto) 8.1 %; Neutrophils # (auto) 4.56 K/uL (1.4-6.5); Neutrophils % (auto) 79.1 %; Platelet Count 139 K/uL (130-400); RDW Coefficient of Variation 17.6 % (11.5-14.5); RDW Standard Deviation 57.7 fL (36.4-46.3); Red Blood Count 3.66 M/uL (4.7-6.1); White Blood Count 5.77 K/uL (4.8-10.8)
[2021-04-06 17:24] LABS: Base Excess VBG 2.6 mEq/L; HCO3 VBG 30 mmol/L; PCO2 VBG 58 mmHg (38-50); PO2 VBG 18 mmHg; pH VBG 7.33 (7.36-7.41)
[2021-04-06 17:26] LABS: Partial Thromboplastin Time 26.6 Seconds (21.0-31.0)
[2021-04-06 17:27] LABS: Oxygen Saturation VBG < 60.0 %
[2021-04-06 17:35] LABS: Alanine Aminotransferase 47 U/L (12-78); Albumin Level 3.2 gm/dl (3.4-5.0); Aspartate Aminotransferase 44 U/L (15-37); BUN Creatinine Ratio 20.4 (10-20); Blood Urea Nitrogen 40 mg/dl (7-18); Calcium 8.7 mg/dl (8.5-10.1); Carbon Dioxide 30 mmol/L (21-32); Chloride 107 mmol/L (98-107); Creatinine Clr Calc Pharmacy 24.8 ml/min; Est GFR (African American) 35.6 ml/min; Est GFR (Non-African American) 30.7 ml/min; Glucose 114 mg/dl (70-99); Lipase 62 U/L (73-393); Potassium 4.1 mmol/L (3.5-5.1); Sodium 141 mmol/L (136-145)
[2021-04-06 17:40] LABS: Albumin Globulin Ratio 0.9 (0.9-2); Alkaline Phosphatase 169 U/L (45-117); Bilirubin,Total 0.7 mg/dl (0.2-1); Globulin 3.7 gm/dl (2.5-4.0); NT Pro B Type Natriuretic Pept 11499 pg/ml (0-1800); Total Protein 6.9 gm/dl (6.4-8.2); Troponin I < 0.015 ng/ml (0-0.045)
[2021-04-06] MEDS ORDERED: ALBUT/IPRATROP 3MG/0.5MG NEB 3 ML VIAL NEB STA ×2 (17:46→23:44)
[2021-04-06] MEDS ORDERED: methylPREDNISolone 125 MG/2 ML VIAL IV STA (17:46)
--- NOTE | 2021-04-06 18:28 | XRay Report ---
XR chest 1V portable CLINICAL HISTORY: Atypical chest pain TECHNIQUE: Single frontal radiograph of the chest was obtained. Comparison: Comparison is made to chest one view 07/29/2019 FINDINGS: Stable median sternotomy wires and pacemaker defibrillator. Cardiomegaly is noted. Bilateral intersti tial opacities are again seen. In addition, there is suggestion of airspace opacity in the left later al lung. Blunting of the left costophrenic angle is again seen compatible with pleural thickening. IMPRESSION: Left pleural thickening and bilateral interstitial opacities compatible with interstitial lung diseas e. In addition, there may be airspace opacity in the left lateral lung. ACT 112: Negative or not required by law. Electronically signed by: Tim Gordon M.D. 04/06/2021 6:27 PM
[2021-04-06] MEDS ORDERED: OPTIRAY 320 125ml IV ONE (21:09)
--- NOTE | 2021-04-06 21:29 | CT Scan Report ---
CT angio chest PE protocol CLINICAL HISTORY: PE atypical chest pain. TECHNIQUE: Multidetector row helical CT of the chest was performed. Coronal and sagittal reformations were obtained. Automated dose lowering techniques and/or adjustment according to patient size were u tilized for this exam. Comparison: Comparison is made to CT chest 01/08/2021 FINDINGS: Lungs and pleura: Interstitial opacities are seen. There is a moderate right and small left pleural e ffusion. Calcifications are noted in the left pleura, unchanged from prior exam. Multiple pulmonary n odules are unchanged from prior exam, largest measuring 6 mm in the right upper lobe (series 4 image 193). Heart and pericardium: There is cardiomegaly without evidence of pericardial effusion. Reflux of cont rast is seen in the IVC. Vessels: No evidence of pulmonary embolism. Mediastinum and marie: Unremarkable. Chest wall and lower neck: Unremarkable. Abdomen: A small hiatal hernia is seen. Bones: Degenerative changes in the thoracic spine. IMPRESSION: 1. No evidence of pulmonary embolism. 2. Moderate right and small left pleural effusion, increased from prior exam. 3. Redemonstration of chronic interstitial opacities may represent scarring. Stable calcifications i n the left pleural. 4. Stable small pulmonary nodules. 5. Cardiomegaly with likely heart failure. ACT 112: Negative or not required by law. Electronically signed by: Tim Gordon M.D. 04/06/2021 9:28 PM
[2021-04-06] MEDS ORDERED: ALBUT/IPRATROP 3MG/0.5MG NEB 3 ML VIAL NEB ONE (23:07)
[2021-04-06] MEDS ORDERED: ALBUT/IPRATROP 3MG/0.5MG NEB 3 ML VIAL ONE (23:22)
[2021-04-07 00:09] LABS: Magnesium 2.2 mg/dl (1.8-2.4)
[2021-04-07] MEDS ORDERED: AMPICILLIN/SULBACTAM SOD 3,000 MG in 0.9 % SODIUM CHLORIDE 100 ML IV STA (00:15)
--- NOTE | 2021-04-07 01:03 | History & Physical Report ---
Date of Service April 07, 2021 Assessment & Plan (1) Respiratory failure: Plan: Secondary to COPD/ILD exacerbation possible aspiration pneumonitis given choking complaints Rule out esophageal dysfunction ARF on CKD secondary to illness hx chronic systolic heart failure secondary to ischemic cardiomyopathy (EF 26%, TTE 2020) status post biventricular ICD/PPM, equivocal volume status hx CAD status post CABG/LBBB HTN, BP on the lower side valvular heart disease (moderate , moderate MR, mild AR, TTE 2020) Parkinson's disease chronic anemia, hemoglobin at baseline hypothyroidism, euthyroid as of recent outpatient TSH Hyperglycemia rule out DM Med telemetry Supplemental O2 Unasyn now followed by Augmentin Nebs RTC, prednisone course Pulmonary consult if without improvement Hold home diuretic until creatinine back to baseline light of IV contrast admin istration Decrease maintenance beta-joão dose for now given borderline BP Check hemoglobin A1c DVT prophylaxis. Heparin subcu DNR Patient's daughter requesting updates from providers. Ms. Toya Scruggs, contact #[phone]. Text document was generated using [employer] voice recognition software. It may contain grammatical or spelling errors. Kindly contact undersigned for clarification of any documentation item in question. History of Present Illness Chief Complaint: Cough, worsening shortness of breath Primary Care Provider: Olegario Mullen MD History obtained from patient, family, and records. Patient is a fair historian. Medical history significant for chronic systolic heart failure secondary to ischemic cardiomyopathy (EF 26%, TTE 2020) status post biventricular ICD/PPM, CAD status post CABG, history LBBB, valvular heart disease (moderate , moderate MR, mild AR, TTE 2020), COPD/ILD as per records, JOVITA/CPAP noncompliance as per records, Parkinson's disease, CRI (baseline creatinine 1.7), chronic anemia (baseline hemoglobin 10), hypothyroidism. Last confinement July 2019 for sepsis secondary to cholangitis. Patient noted worsening shortness of breath especially on exertion in the last week. Junky cough symptoms. Patient admits to choking symptoms with meals/water intake. Achy chest pain from coughing. No weight gain as per patient. No known recent COVID-19 contacts. Family worried about Covid. At the ER, patient received Solu-Medrol and neb treatment for COPD exacerbation. 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 Allergies Allergy/AdvReac Type Severity Reaction Status Date / Time haloperidol Allergy Intermediate LOSS OF Verified 04/06/21 20:15 VISION Home Medications Medication Instructions Recorded Confirmed Type docusate sodium 100 mg tablet 100 mg PO DAILY PRN 03/09/18 04/06/21 History levothyroxine 88 mcg capsule 88 mcg PO QAM 03/09/18 04/06/21 History metoprolol succinate 50 mg 50 mg PO QAM 03/09/18 04/06/21 History tablet,extended release 24 hr nitroglycerin 0.4 mg sublingual 0.4 mg SUBLINGUAL DIRECTED PRN 03/09/18 04/06/21 History tablet nortriptyline 50 mg capsule 100 mg PO HS 03/09/18 04/06/21 History sertraline 100 mg tablet 100 mg PO QAM 03/09/18 04/06/21 History simvastatin 40 mg tablet 40 mg PO HS 03/09/18 04/06/21 History aspirin 81 mg tablet,delayed 81 mg PO QAM 03/18/19 04/06/21 History release (Adult Low Dose Aspirin) ketoconazole 2 % topical cream 1 appln TOP UD 03/18/19 04/06/21 History omeprazole 40 mg capsule,delayed 40 mg PO QAM 03/18/19 04/06/21 History release famotidine 40 mg tablet 40 mg PO QAM 07/31/19 04/06/21 History cyanocobalamin (vitamin B-12) 1,000 mcg PO DAILY 03/08/21 04/06/21 History 1,000 mcg capsule isosorbide mononitrate 60 mg 60 mg PO DAILY 03/08/21 04/06/21 History tablet,extended release 24 hr Oxygen Home #1 ea 03/22/21 04/06/21 Rx furosemide 20 mg tablet 20 mg PO DAILY 03/22/21 04/06/21 History ipratropium 0.5 mg-albuterol 3 mg 3 ml INH UD PRN #360 ml 03/22/21 04/06/21 Rx (2.5 mg base)/3 mL nebulization soln nebulizers #1 ea 03/22/21 04/06/21 Rx potassium chloride 10 mEq 10 meq PO QAM 03/22/21 04/06/21 History capsule,extended release Past Med/Surg History Medical History (Updated 04/07/21 @ 07:39 by Shivam Reno MD) Aortic stenosis, moderate Moderate/severe per 10/2019 ECHO CAD (coronary artery disease) 2001 - S/P CABG x 3 (OWEN-LAD, SVG-OM, SVG-PDA) 2006 -cardiac catheterization demonstrated severe diffuse disease with patent OWEN to LAD with occluded SVGs to the OM and PDA. 60% stenosis of LCX, severely diseased RCA with prox stenosis, 100% occlusion in mid RCA and distal filling via right to right bridging collaterals and left to right collaterals arising from LCX CKD (chronic kidney disease), stage III COPD (chronic obstructive pulmonary disease) SOB, hx/o COPD. Supplemental oxygen -- pt does not use. Depression Falls frequently GERD (gastroesophageal reflux disease) Hyperlipidemia Hypertension Hypothyroidism Ischemic cardiomyopathy EF 50% per hospitalist history and physical. Loss of balance following with Dr. Villasenor. Myocardial Infarction 2001 --> CABG x3 JOVITA (obstructive sleep apnea) Osteoarthritis 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 defibrillator (ICD) and pacemaker Splenic lesion Stable angina Surgical History H/O bilateral inguinal hernia repair History of colonoscopy History of ERCP History of implantable cardioverter-defibrillator (ICD) insertion last checked ~1 month ago at Cardio office Hx of cholecystectomy S/P CABG x 3 2001 Family History Mother , age 83 of heart issues. Heart disease Diabetes Father , age 80 of heart issues Heart disease Social History (Updated 09/01/19 @ 10:05 by Graham Villasenor MD) Smoking Status: Former smoker Cigarettes Per Day: 30 years ago; Number of Years Since Quit: 45; Second Hand Exposure: Yes (hx); Do You Dip or Chew Tobacco: No (stopped 4 days ago); Hx Alcohol Use: No Hx Substance Use: No Preferred Language: Hungarian Communication Ability: Effective Visual Impairment: No Limitations Hearing Ability: Normal Electrical Assembly Technician Required: No Beliefs That Will Affect Care: None Current Living Situation: Spouse Current Living Situation Comment: Lives with spouse in a home and his son current occupational status: retired Other Information That Helps Us Care for You: No other: 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 [employer] Feels Safe at Home: Yes Safety Concerns: Feels Safe At This Time Assistive Devices: Denture - Upper, Denture - Lower and Glasses Review of Systems Review of Systems: As per HPI, all 10 systems reviewed, all other ROS negative Physical Exam Physical Exam: GENERAL: uncomfortable, oriented to day, slightly hard of hearing, minimal respiratory distress SKIN: Pallor, warm HEENT: Bespectacled, pale palpebral conjunctivae, no ptosis, dry buccal mucosa, nasal cannula in place NECK : Supple, no tenderness CHEST : Decreased breath sounds, occasional expiratory wheezes, no tenderness HEART : RRR, systolic murmur best heard on the left sternal border ABDOMEN: no distention, nontender EXTREMITIES : No LE swelling/tenderness, no other conspicuous deformities noted NEUROLOGIC : Coherent, no facial asymmetry, mild hearing impairment, intention tremors, no other gross focality Results & Data Results & Data ([facility]) Vital Signs (Past 12 Hours) Vital Signs Temp Pulse Pulse Resp BP BP Pulse Ox 04/07/21 00:21 95 H 22 128/82 98 04/06/21 23:45 89 22 104/84 100 04/06/21 23:27 88 25 H 99 04/06/21 23:13 87 22 133/87 100 04/06/21 22:17 86 22 111/77 100 04/06/21 21:27 85 22 122/73 99 04/06/21 20:11 85 22 124/78 93 04/06/21 19:40 86 22 120/79 96 04/06/21 19:13 82 20 125/73 95 04/06/21 18:14 75 24 94 04/06/21 18:11 77 24 121/64 95 04/06/21 18:10 94 04/06/21 17:15 76 76 24 97/74 L 94 04/06/21 16:18 36.2 C L 82 16 103/68 100 Laboratory Results Laboratory Results WBC 5.77 K/uL (4.8-10.8) 04/06/21 17:07 RBC 3.66 M/uL (4.7-6.1) L 04/06/21 17:07 Hgb 10.7 g/dL (14.0-18.0) L 04/06/21 17:07 Hct 33.0 % (42-52) L 04/06/21 17:07 MCV 90.2 fL (80-100) 04/06/21 17:07 MCH 29.2 pg (25-34) 04/06/21 17:07 MCHC 32.4 g/dL (32-36) 04/06/21 17:07 RDW Std Deviation 57.7 fL (36.4-46.3) H 04/06/21 17:07 RDW Coeff of Jaja 17.6 % (11.5-14.5) H 04/06/21 17:07 Plt Count 139 K/uL (130-400) 04/06/21 17:07 MPV 10.5 fL (7.4-10.4) H 04/06/21 17:07 Immature Gran % (Auto) 0.2 % 04/06/21 17:07 Neut % (Auto) 79.1 % 04/06/21 17:07 Lymph % (Auto) 10.7 % 04/06/21 17:07 Spencer % (Auto) 8.1 % 04/06/21 17:07 Eos % (Auto) 1.7 % 04/06/21 17:07 Baso % (Auto) 0.2 % 04/06/21 17:07 Neut # (Auto) 4.56 K/uL (1.4-6.5) 04/06/21 17:07 Lymph # (Auto) 0.62 K/uL (1.2-3.4) L 04/06/21 17:07 Spencer # (Auto) 0.47 K/uL (0.11-0.59) 04/06/21 17:07 Eos # (Auto) 0.10 K/uL (0-0.5) 04/06/21 17:07 Baso # (Auto) 0.01 K/uL (0-0.2) 04/06/21 17:07 Immature Gran # (Auto) 0.01 K/uL (0.00-0.02) 04/06/21 17:07 APTT 26.6 Seconds (21.0-31.0) 04/06/21 17:07 PTT Ratio 1.0 04/06/21 17:07 VBG pH 7.33 (7.36-7.41) L 04/06/21 17:07 VBG pCO2 58 mmHg (38-50) H 04/06/21 17:07 VBG pO2 18 mmHg 04/06/21 17:07 VBG HCO3 30 mmol/L 04/06/21 17:07 VBG O2 Saturation < 60.0 % 04/06/21 17:07 VBG Base Excess 2.6 mEq/L 04/06/21 17:07 Barometric Pressure 730.7 mm/Hg 04/06/21 17:07 Sodium 141 mmol/L (136-145) 04/06/21 17:07 Potassium 4.1 mmol/L (3.5-5.1) 04/06/21 17:07 Chloride 107 mmol/L (98-107) 04/06/21 17:07 Carbon Dioxide 30 mmol/L (21-32) 04/06/21 17:07 Anion Gap 4.0 (3-11) 04/06/21 17:07 BUN 40 mg/dl (7-18) H 04/06/21 17:07 Creatinine 1.96 mg/dl (0.6-1.4) H 04/06/21 17:07 Est Cr Clr Drug Dosing 24.8 ml/min 04/06/21 17:07 Est GFR ( Amer) 35.6 ml/min 04/06/21 17:07 Est GFR (Non-Af Amer) 30.7 ml/min 04/06/21 17:07 BUN/Creatinine Ratio 20.4 (10-20) H 04/06/21 17:07 Glucose 114 mg/dl (70-99) H 04/06/21 17:07 Calcium 8.7 mg/dl (8.5-10.1) 04/06/21 17:07 Magnesium 2.2 mg/dl (1.8-2.4) 04/06/21 17:07 Magnesium Cancelled 04/06/21 17:07 Total Bilirubin 0.7 mg/dl (0.2-1) 04/06/21 17:07 AST 44 U/L (15-37) H 04/06/21 17:07 ALT 47 U/L (12-78) 04/06/21 17:07 Alkaline Phosphatase 169 U/L (45-117) H 04/06/21 17:07 Troponin I < 0.015 ng/ml (0-0.045) 04/06/21 17:07 NT-Pro-B Natriuret Pep 98734 pg/ml (0-1800) H 04/06/21 17:07 Total Protein 6.9 gm/dl (6.4-8.2) 04/06/21 17:07 Albumin 3.2 gm/dl (3.4-5.0) L 04/06/21 17:07 Globulin 3.7 gm/dl (2.5-4.0) 04/06/21 17:07 Albumin/Globulin Ratio 0.9 (0.9-2) 04/06/21 17:07 Lipase 62 U/L (73-393) L 04/06/21 17:07 COVID-19 Eval Order Covid19 at [facility] 04/06/21 18:04 SARS-CoV-2 (PCR) NEGATIVE (Negative) 04/06/21 18:04 Impressions Chest X-Ray 04/06/21 16:56 XR chest 1V portable CLINICAL HISTORY: Atypical chest pain TECHNIQUE: Single frontal radiograph of the chest was obtained. Comparison: Comparison is made to chest one view 07/29/2019 FINDINGS: Stable median sternotomy wires and pacemaker defibrillator. Cardiomegaly is noted. Bilateral interstitial opacities are again seen. In addition, there is suggestion of airspace opacity in the left lateral lung. Blunting of the left costophrenic angle is again seen compatible with pleural thickening. IMPRESSION: Left pleural thickening and bilateral interstitial opacities compatible with interstitial lung disease. In addition, there may be airspace opacity in the left lateral lung. ACT 112: Negative or not required by law. Electronically signed by: Tim Gordon M.D. 04/06/2021 6:27 PM Chest CTA 04/06/21 20:00 CT angio chest PE protocol CLINICAL HISTORY: PE atypical chest pain. TECHNIQUE: Multidetector row helical CT of the chest was performed. Coronal and sagittal reformations were obtained. Automated dose lowering techniques and/or adjustment according to patient size were utilized for this exam. Comparison: Comparison is made to CT chest 01/08/2021 FINDINGS: Lungs and pleura: Interstitial opacities are seen. There is a moderate right and small left pleural effusion. Calcifications are noted in the left pleura, unchanged from prior exam. Multiple pulmonary nodules are unchanged from prior exam, largest measuring 6 mm in the right upper lobe (series 4 image 193). Heart and pericardium: There is cardiomegaly without evidence of pericardial effusion. Reflux of contrast is seen in the IVC. Vessels: No evidence of pulmonary embolism. Mediastinum and marie: Unremarkable. Chest wall and lower neck: Unremarkable. Abdomen: A small hiatal hernia is seen. Bones: Degenerative changes in the thoracic spine. IMPRESSION: 1. No evidence of pulmonary embolism. 2. Moderate right and small left pleural effusion, increased from prior exam. 3. Redemonstration of chronic interstitial opacities may represent scarring. Stable calcifications in the left pleural. 4. Stable small pulmonary nodules. 5. Cardiomegaly with likely heart failure. ACT 112: Negative or not required by law. Electronically signed by: Tim Gordon M.D. 04/06/2021 9:28 PM Diagnostic Findings EKG as per my interpretation rate 75, paced rhythm
[2021-04-07] MEDS: ALBUMIN 25% 12.5 GM/50 ML VIAL IV SCH ×2 (01:20→02:07)
[2021-04-07] MEDS ORDERED: traMADol HCL 50 MG TABLET PO PRN (03:53)
[2021-04-07] MEDS ORDERED: PROMETHAZINE HCL 6.25 MG in SODIUM CHLORIDE 0.9% 50 ML IV PRN (03:53)
[2021-04-07] MEDS: ACETAMINOPHEN 325 MG TAB PO PRN (06:09)
[2021-04-07] MEDS: HEPARIN SOD 5,000 UNIT/0.5 ML VIAL SQ SCH ×3 (06:09→20:51)
[2021-04-07] MEDS: LEVOTHYROXINE SODIUM 88 MCG TABLET PO SCH (06:09)
[2021-04-07] MEDS ORDERED: LEVOTHYROXINE 88 MCG PO SCH (06:30)
[2021-04-07 06:41] LABS: Hematocrit (blood only) 31.8 % (42-52); Hemoglobin 10.1 g/dL (14.0-18.0); Immature Granulocytes # (auto) 0.01 K/uL (0.00-0.02); Immature Granulocytes % (auto) 0.2 %; Lymphocytes # (auto) 0.29 K/uL (1.2-3.4); Lymphocytes % (auto) 6.3 %; Mean Corpuscular Hemoglobin 28.9 pg (25-34); Mean Corpuscular Hgb Conc 31.8 g/dL (32-36); Mean Corpuscular Volume 90.9 fL (80-100); Mean Platelet Volume 10.9 fL (7.4-10.4); Monocytes # (auto) 0.14 K/uL (0.11-0.59); Monocytes % (auto) 3.1 %; Neutrophils # (auto) 4.13 K/uL (1.4-6.5); Neutrophils % (auto) 90.4 %; Platelet Count 132 K/uL (130-400); RDW Coefficient of Variation 17.8 % (11.5-14.5); RDW Standard Deviation 59.3 fL (36.4-46.3); White Blood Count 4.57 K/uL (4.8-10.8)
[2021-04-07] MEDS ORDERED: LEVALBUTEROL 1.25MG/0.5ML NEB INH SCH (07:00)
[2021-04-07] MEDS ORDERED: XOPENEX/ATROVENT 1.25mg/0.5MG NEB COMBO NEB SCH (07:00)
[2021-04-07] MEDS ORDERED: IPRATROPIUM BROMIDE NEB SOLN 0.02% 2.5 ML VIAL INH SCH (07:00)
[2021-04-07 07:18] LABS: BUN Creatinine Ratio 19.9 (10-20); Calcium 9.3 mg/dl (8.5-10.1); Creatinine Clr Calc Pharmacy 23.5 ml/min; Est GFR (African American) 33.3 ml/min; Est GFR (Non-African American) 28.8 ml/min; Potassium 4.6 mmol/L (3.5-5.1)
[2021-04-07] MEDS: LEVALBUTEROL 1.25MG/0.5ML NEB INH SCH ×5 (07:23→22:12)
[2021-04-07] MEDS: IPRATROPIUM BROMIDE NEB SOLN 0.02% 2.5 ML VIAL INH SCH ×5 (07:23→22:12)
[2021-04-07 08:02] LABS: Estimated Average Glucose 123 mg/dl; Hemoglobin A1C 5.9 % (4.5-5.6)
[2021-04-07] MEDS ORDERED: METOPROLOL SUCC 25MG EXT REL TAB PO SCH (09:00)
[2021-04-07] MEDS ORDERED: AMOXICILLIN/CLAVULANATE CONSULT ACTIVE PRN (09:00)
[2021-04-07] MEDS ORDERED: predniSONE 20 MG TAB PO SCH (09:00)
[2021-04-07] MEDS ORDERED: METOPROLOL SUCC 50MG EXT REL TAB PO SCH (09:00)
[2021-04-07] MEDS: CYANOCOBALAMIN 500 MCG TABLET (VITAMIN B-12) PO SCH (09:55)
[2021-04-07] MEDS: predniSONE 20 MG TAB PO SCH (09:55)
[2021-04-07] MEDS: ASPIRIN 81 MG ECTAB PO SCH (09:55)
[2021-04-07] MEDS: PANTOprazole 40 MG TAB PO SCH (09:55)
[2021-04-07] MEDS: AMOXICILLIN/CLAVULANATE 500 MG TAB PO SCH ×2 (09:56→15:55)
[2021-04-07] MEDS: SERTRALINE HCL 100 MG TABLET PO SCH (09:56)
[2021-04-07] MEDS: FAMOTIDINE 40 MG TABLET PO SCH (09:56)
[2021-04-07] MEDS: ISOSORBIDE MONO EXTENDED REL 60 MG TABCR PO SCH (09:57)
[2021-04-07] MEDS: SODIUM CHLOR 7% 4 ML NEB NEB SCH ×2 (12:44→19:33)
--- NOTE | 2021-04-07 14:04 | Electrocardiogram Report ---
Test Reason : Blood Pressure : / mmHG Vent. Rate : 076 BPM Atrial Rate : 076 BPM P-R Int : 146 ms QRS Dur : 174 ms QT Int : 522 ms P-R-T Axes : 059 -82 081 degrees QTc Int : 587 ms Atrial-sensed ventricular-paced rhythm Biventricular pacemaker detected Abnormal ECG When compared with ECG of 26-JUL-2019 22:02, Vent. rate has decreased BY 22 BPM Confirmed by Ciro Lucero ([id number]) on 04/07/2021 2:04:05 PM Referred By: REFERRED SELF Confirmed By:Ciro Lucero
--- NOTE | 2021-04-07 14:55 | Hospitalist Progress Note ---
Date of Service April 07, 2021 Assessment & Plan (1) Respiratory failure: Plan: Acute on chronic respiratory failure with hypoxia Chronic oxygen dependency-3 L at baseline at bedtime COPD/ILD exacerbation Possible aspiration pneumonitis B/L Pleural Effusion -Negative COVID Screen -CTA:No evidence of pulmonary embolism. Moderate right and small left pleural effusion, increased from prior exam. Redemonstration of chronic interstitial opacities may represent scarring. Stable calcifications in the left pleural. Stable small pulmonary nodules. Cardiomegaly with likely heart failure. -Continue Augmentin, prednisone Continue nebs Continue supplemental oxygen as needed Speech therapy evaluation Consider pulmonology evaluation if no improvement Pulmonary toilet Acute on chronic systolic heart failure Bilateral pleural effusion CT as above H/O chronic systolic heart failure secondary to ischemic cardiomyopathy Last EF ~ 25%, S/P ICD/PPM Monitor I's and O's, daily weight Cautious use of IV diuretics given TAMI Will obtain nephrology evaluation to help with volume management Acute kidney injury on CKD III Avoid nephrotoxic agents as able Monitor renal function Nephrology consulted H/O CAD S/P CABG/LBBB Continue aspirin, isosorbide, metoprolol, statin HTN On metoprolol Monitor Valvular heart disease moderate , moderate MR, mild AR, TTE 2020 Continue home medications Parkinson's disease chronic anemia Hb at baseline Hypothyroidism Continue levothyroxine Prediabetes HbA1c 5.9 DVT Px: Heparin SQ Code Status DNR/DNI Admission and Anticipated Discharge Date Admission Date: April 07, 2021 Subjective Patient is seen and examined at bedside States having cough with dyspnea on exertion Also reports pressure like sensation in his head Intermittent left chest discomfort which currently resolved Denies any dizziness, nausea, abdominal pain Offers no other complaints Review of Systems Review of Systems: All systems reviewed & are unremarkable except as noted in Subjective Physical Exam Physical Exam: Physical Exam: Vitals signs as noted above General Appearance: Chronically appearing, no apparent distress Head: normocephalic, Atraumatic Eyes: normal inspection, EOMI Neck: supple, Trachea midline Respiratory/Chest: Decreased breath sounds, B/L crackles Cardiovascular: S1, S2, + murmur Abdomen/GI:Soft, Non tender, Bowel sounds present Extremities/Musculoskeletal:normal inspection, no edema Neurologic/Psych:AAOX3, grossly no focal neurological deficits Skin: normal color, warm Results & Data Results & Data ([facility]) Vital Signs (Past 12 Hours) Vital Signs Temp Pulse Pulse Resp BP BP Pulse Ox 04/07/21 14:38 81 20 96 04/07/21 12:37 73 94 04/07/21 12:32 04/07/21 11:00 36.6 C 75 18 119/73 100 04/07/21 08:00 79 04/07/21 07:15 36.8 C 78 18 117/76 99 04/07/21 05:19 36.6 C 83 26 H 113/74 96 04/07/21 05:00 81 04/07/21 04:24 81 22 98/83 L 100 04/07/21 03:36 80 20 127/67 98 04/07/21 02:56 83 20 131/79 99 Pulse Ox Pulse Ox 04/07/21 14:38 04/07/21 12:37 04/07/21 12:32 100 100 04/07/21 11:00 04/07/21 08:00 04/07/21 07:15 04/07/21 05:19 04/07/21 05:00 04/07/21 04:24 04/07/21 03:36 04/07/21 02:56 Laboratory Results Short CBC 04/06/21 04/07/21 Range/Units 17:07 06:11 WBC 5.77 4.57 L (4.8-10.8) K/uL Hgb 10.7 L 10.1 L (14.0-18.0) g/dL Hct 33.0 L 31.8 L (42-52) % Plt Count 139 132 (130-400) K/uL BMP 04/06/21 04/07/21 17:07 06:11 Sodium 141 141 Potassium 4.1 4.6 Chloride 107 107 Carbon Dioxide 30 25 BUN 40 H 41 H Creatinine 1.96 H 2.07 H Glucose 114 H 177 H Calcium 8.7 9.3 Cardiac Enzymes 04/06/21 Range/Units 17:07 Troponin I < 0.015 (0-0.045) ng/ml Liver Function 04/06/21 Range/Units 17:07 Total Bilirubin 0.7 (0.2-1) mg/dl AST 44 H (15-37) U/L ALT 47 (12-78) U/L Alkaline Phosphatase 169 H (45-117) U/L Albumin 3.2 L (3.4-5.0) gm/dl
[2021-04-07] MEDS ORDERED: FUROSEMIDE 20 MG TAB PO SCH (15:00)
[2021-04-07] MEDS ORDERED: FUROSEMIDE 20 MG in SYRINGE 0 ML IV ONE (15:30)
[2021-04-07] MEDS: SIMVASTATIN 40 MG TAB PO SCH (20:50)
[2021-04-07] MEDS: NORTRIPTYLINE HCL 25 MG CAP PO SCH (20:50)
[2021-04-08] MEDS: IPRATROPIUM BROMIDE NEB SOLN 0.02% 2.5 ML VIAL INH SCH ×6 (03:18→22:15)
[2021-04-08] MEDS: LEVALBUTEROL 1.25MG/0.5ML NEB INH SCH ×6 (03:19→22:16)
[2021-04-08] MEDS: LEVOTHYROXINE SODIUM 88 MCG TABLET PO SCH (05:57)
[2021-04-08] MEDS: HEPARIN SOD 5,000 UNIT/0.5 ML VIAL SQ SCH ×3 (05:57→21:11)
[2021-04-08] MEDS: SODIUM CHLOR 7% 4 ML NEB NEB SCH ×2 (07:28→19:42)
--- NOTE | 2021-04-08 07:45 | Nephrology Consultation ---
Date of Consultation April 08, 2021 Assessment & Plan (1) Acute kidney injury superimposed on chronic kidney disease: TAMI on CKD 3 - Likely 2/ fluid overload/ infection His baseline Scr is @1.6--1.8, this has marginally risen to 2.09, UOP has been low and he has soft BP. He is perpherally dry but centrally loaded. Recommend increasing furosemide to 40 mg Iv now and daily assesment of volume status to adjust diuretic dose. - He has pleural effusion, Recommend Pulmonary consult - avoid nephrotoxics - Input and output - 2g Na diet. (2) COPD (chronic obstructive pulmonary disease): (3) Ischemic cardiomyopathy: (4) CAD (coronary artery disease): History of Present Illness Reason for Consultation: Acute kidney injury. CKD Attending Physician: Star Pereira MD History of Present Illness Medical history significant for chronic systolic heart failure secondary to ischemic cardiomyopathy (EF 26%, TTE 2020) status post biventricular ICD/PPM, CAD status post CABG, history LBBB, valvular heart disease (moderate , moderate MR, mild AR, TTE 2020), COPD/ILD as per records, JOVITA/CPAP noncompliance as per records, Parkinson's disease, CRI (baseline creatinine 1.7), chronic anemia (baseline hemoglobin 10), hypothyroidism. Patient was admitted with worsening shortness of breath over the last one week with productive cough.ER labs were significant fro TAMI on ckd (1.9--->2.07), he is on home dose of 20 mg of Furosemide and received 20 mg IV furosemide, UOP- has been 675 mls over the 24 hr soft BP in early . Allergies Allergy/AdvReac Type Severity Reaction Status Date / Time haloperidol Allergy Intermediate LOSS OF Verified 04/06/21 20:15 VISION Home Medications Medication Instructions Recorded Confirmed Type docusate sodium 100 mg tablet 100 mg PO DAILY PRN 03/09/18 04/06/21 History levothyroxine 88 mcg capsule 88 mcg PO QAM 03/09/18 04/06/21 History metoprolol succinate 50 mg 50 mg PO QAM 03/09/18 04/06/21 History tablet,extended release 24 hr nitroglycerin 0.4 mg sublingual 0.4 mg SUBLINGUAL DIRECTED PRN 03/09/18 04/06/21 History tablet nortriptyline 50 mg capsule 100 mg PO HS 03/09/18 04/06/21 History sertraline 100 mg tablet 100 mg PO QAM 03/09/18 04/06/21 History simvastatin 40 mg tablet 40 mg PO HS 03/09/18 04/06/21 History aspirin 81 mg tablet,delayed 81 mg PO QAM 03/18/19 04/06/21 History release (Adult Low Dose Aspirin) ketoconazole 2 % topical cream 1 appln TOP UD 03/18/19 04/06/21 History omeprazole 40 mg capsule,delayed 40 mg PO QAM 03/18/19 04/06/21 History release famotidine 40 mg tablet 40 mg PO QAM 07/31/19 04/06/21 History cyanocobalamin (vitamin B-12) 1,000 mcg PO DAILY 03/08/21 04/06/21 History 1,000 mcg capsule isosorbide mononitrate 60 mg 60 mg PO DAILY 03/08/21 04/06/21 History tablet,extended release 24 hr Oxygen Home #1 ea 03/22/21 04/06/21 Rx furosemide 20 mg tablet 20 mg PO DAILY 03/22/21 04/06/21 History ipratropium 0.5 mg-albuterol 3 mg 3 ml INH UD PRN #360 ml 03/22/21 04/06/21 Rx (2.5 mg base)/3 mL nebulization soln nebulizers #1 ea 03/22/21 04/06/21 Rx potassium chloride 10 mEq 10 meq PO QAM 03/22/21 04/06/21 History capsule,extended release Patient History Medical History (Updated 04/08/21 @ 07:40 by Agnes Ng MD) Aortic stenosis, moderate Moderate/severe per 10/2019 ECHO CAD (coronary artery disease) 2001 - S/P CABG x 3 (OWEN-LAD, SVG-OM, SVG-PDA) 2006 -cardiac catheterization demonstrated severe diffuse disease with patent OWEN to LAD with occluded SVGs to the OM and PDA. 60% stenosis of LCX, severely diseased RCA with prox stenosis, 100% occlusion in mid RCA and distal filling via right to right bridging collaterals and left to right collaterals arising from LCX CKD (chronic kidney disease), stage III COPD (chronic obstructive pulmonary disease) SOB, hx/o COPD. Supplemental oxygen -- pt does not use. Depression Falls frequently GERD (gastroesophageal reflux disease) Hyperlipidemia Hypertension Hypothyroidism Ischemic cardiomyopathy EF 50% per hospitalist history and physical. Loss of balance following with Dr. Villasenor. Myocardial Infarction 2002 --> CABG x3 JOVITA (obstructive sleep apnea) Osteoarthritis 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 defibrillator (ICD) and pacemaker Splenic lesion Stable angina Surgical History H/O bilateral inguinal hernia repair History of colonoscopy History of ERCP History of implantable cardioverter-defibrillator (ICD) insertion last checked ~1 month ago at Cardio office Hx of cholecystectomy S/P CABG x 3 2001 Family History Mother , age 83 of heart issues. Heart disease Diabetes Father , age 80 of heart issues Heart disease Social History (Updated 09/01/19 @ 10:05 by Graham Villasenor MD) Smoking Status: Former smoker Cigarettes Per Day: 30 years ago; Number of Years Since Quit: 45; Second Hand Exposure: Yes (hx); Do You Dip or Chew Tobacco: No (stopped 4 days ago); Hx Alcohol Use: No Hx Substance Use: No Preferred Language: Uzbek Communication Ability: Effective Visual Impairment: No Limitations Hearing Ability: Normal Paper Roller Required: No Beliefs That Will Affect Care: None Current Living Situation: Spouse Current Living Situation Comment: Lives with spouse in a home and his son current occupational status: retired Other Information That Helps Us Care for You: No other: 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 Decreased air entry bilaterlly with crepts. Physical Exam Physical Exam: Vitals signs as noted above General Appearance: Chronically appearing, no apparent distress Head: normocephalic, Atraumatic Eyes: normal inspection, EOMI Neck: supple, Trachea midline Respiratory/Chest: Decreased breath sounds, B/L crackles Cardiovascular: S1, S2, + murmur Abdomen/GI:Soft, Non tender, Bowel sounds present Extremities/Musculoskeletal:normal inspection, no edema Neurologic/Psych:AAOX3, grossly no focal neurological deficits Skin: normal color, warm Results & Data ([facility]) Vital Signs (Past 12 Hours) Vital Signs Temp Pulse Resp BP Pulse Ox 04/08/21 07:30 71 18 100 04/08/21 07:21 36.4 C L 75 18 109/65 98 04/08/21 03:55 36.5 C 75 20 105/61 95 04/08/21 03:19 75 20 94 04/07/21 23:45 36.7 C 85 18 115/69 98 04/07/21 22:13 82 22 98 Laboratory Results 04/07/21 06:11 04/07/21 06:11
[2021-04-08 09:15] LABS: BUN Creatinine Ratio 24.5 (10-20); Calcium 8.5 mg/dl (8.5-10.1); Creatinine Clr Calc Pharmacy 23.8 ml/min; Est GFR (African American) 33.7 ml/min; Est GFR (Non-African American) 29.1 ml/min; Potassium 3.6 mmol/L (3.5-5.1)
[2021-04-08] MEDS: FAMOTIDINE 40 MG TABLET PO SCH (09:15)
[2021-04-08] MEDS: AMOXICILLIN/CLAVULANATE 500 MG TAB PO SCH ×2 (09:17→17:55)
[2021-04-08] MEDS: PANTOprazole 40 MG TAB PO SCH (09:17)
[2021-04-08] MEDS: CYANOCOBALAMIN 500 MCG TABLET (VITAMIN B-12) PO SCH (09:17)
[2021-04-08] MEDS: SERTRALINE HCL 100 MG TABLET PO SCH (09:17)
[2021-04-08] MEDS: ASPIRIN 81 MG ECTAB PO SCH (09:17)
[2021-04-08] MEDS: predniSONE 20 MG TAB PO SCH (09:17)
[2021-04-08] MEDS: ISOSORBIDE MONO EXTENDED REL 60 MG TABCR PO SCH (09:17)
[2021-04-08] MEDS: METOPROLOL SUCC 50MG EXT REL TAB PO SCH (09:17)
[2021-04-08] MEDS ORDERED: FUROSEMIDE 40 MG in SYRINGE 0 ML IV ONE (10:00)
--- NOTE | 2021-04-08 14:17 | Pulmonary Consultation ---
Date of Consultation April 08, 2021 Assessment & Plan (1) Pleural effusion: Impression: 85-year-old male admitted with shortness of breath. His CT findings and bilateral pleural effusions argue for fluid overload. There is typically small currently and given the fact that the patient is on room air, I am not sure that thoracentesis is indicated currently. Recommendations: 1. Pleural effusions: Had a long discussion with the patient. He is on room air and is breathing comfortably currently. He is not sure he wants to pursue invasive procedures so I think it is reasonable to hold off for now. He would like to see how he does walking around the hallways and then make a determina tion as to whether or not thoracentesis may be indicated. His diuretics were just restarted and these may be more effective in long-term management of his pleural fluid collections than thoracentesis. 2. COPD: Cannot find PFTs available to review. CT scan does not demonstrate significant emphysematous changes. No indication for steroids currently. I am not sure the patient has evidence of interstitial lung disease and given his advanced age and other comorbidities, it is relatively moot point as he is not a candidate for aggressive work-up or immune suppression at this point time. His prednisone will be discontinued. He can continue to use inhalers if he feels that they are clinically beneficial. 3. Hypoxemia: The patient was prescribed supplemental oxygen at the time of his last pulmonary visit few weeks ago. He is currently oxygenating quite well. Continue supplemental oxygen titrated to keep saturations at or above 88%. 4. Management of the patient's other medical issues is deferred to the patient's hospitalist. We will revisit with the patient tomorrow to see how he feels. If he elects to pursue thoracentesis, we may consider it tomorrow. Thanks for the opportunity of assisting in the management this patient. Feel free to contact us if we can be of additional assistance History of Present Illness Attending Physician: Star Pereira MD History of Present Illness Asked by hospitalist to evaluate this patient with pleural effusion. History is obtained from discussion with the patient and reviewed electronic medical record. The patient is an 85-year-old male who is cared for in the outpatient pulmonary setting by [facility]. Patient was last seen about 2 weeks ago. At that point time he described choking and shortness of breath and was prescribed supplemental oxygen and a swallow study was ordered. He had had prior swallow evaluation performed July 2019 which showed no evidence of aspiration. Patient carries a history of ischemic cardiomyopathy with an ejection fraction of about 25% and is status post biventricular AICD pacer. He also has significant valvular heart disease including moderate AAS moderate MR and chronic kidney disease. He was brought to the emergency room with shortness of breath with exertion on 04/07/2021 and admitted to some potential dysphagia symptoms. He was treated for COPD exacerbation in the emergency room with steroids and admitted to the hospitalist service. He had his diuretics held due to concern about worsening kidney function. Nephrology consultation was obtained today. Diuretics have been restarted. He had a CT scan performed which did show a small right-sided pleural effusion. The patient is currently awake alert and conversant. He is not reporting any si gnificant shortness of breath and is actually on room air. He denies fevers chills night sweats or other constitutional symptoms. Allergies Allergy/AdvReac Type Severity Reaction Status Date / Time haloperidol Allergy Intermediate LOSS OF Verified 04/06/21 20:15 VISION Home Medications Medication Instructions Recorded Confirmed Type docusate sodium 100 mg tablet 100 mg PO DAILY PRN 03/09/18 04/06/21 History levothyroxine 88 mcg capsule 88 mcg PO QAM 03/09/18 04/06/21 History metoprolol succinate 50 mg 50 mg PO QAM 03/09/18 04/06/21 History tablet,extended release 24 hr nitroglycerin 0.4 mg sublingual 0.4 mg SUBLINGUAL DIRECTED PRN 03/09/18 04/06/21 History tablet nortriptyline 50 mg capsule 100 mg PO HS 03/09/18 04/06/21 History sertraline 100 mg tablet 100 mg PO QAM 03/09/18 04/06/21 History simvastatin 40 mg tablet 40 mg PO HS 03/09/18 04/06/21 History aspirin 81 mg tablet,delayed 81 mg PO QAM 03/18/19 04/06/21 History release (Adult Low Dose Aspirin) ketoconazole 2 % topical cream 1 appln TOP UD 03/18/19 04/06/21 History omeprazole 40 mg capsule,delayed 40 mg PO QAM 03/18/19 04/06/21 History release famotidine 40 mg tablet 40 mg PO QAM 07/31/19 04/06/21 History cyanocobalamin (vitamin B-12) 1,000 mcg PO DAILY 03/08/21 04/06/21 History 1,000 mcg capsule isosorbide mononitrate 60 mg 60 mg PO DAILY 03/08/21 04/06/21 History tablet,extended release 24 hr Oxygen Home #1 ea 03/22/21 04/06/21 Rx furosemide 20 mg tablet 20 mg PO DAILY 03/22/21 04/06/21 History ipratropium 0.5 mg-albuterol 3 mg 3 ml INH UD PRN #360 ml 03/22/21 04/06/21 Rx (2.5 mg base)/3 mL nebulization soln nebulizers #1 ea 03/22/21 04/06/21 Rx potassium chloride 10 mEq 10 meq PO QAM 03/22/21 04/06/21 History capsule,extended release Patient History Medical History (Updated 04/08/21 @ 14:14 by Damian Patel MD) Aortic stenosis, moderate Moderate/severe per 10/2019 ECHO CAD (coronary artery disease) 2001 - S/P CABG x 3 (OWEN-LAD, SVG-OM, SVG-PDA) 2006 -cardiac catheterization demonstrated severe diffuse disease with patent OWEN to LAD with occluded SVGs to the OM and PDA. 60% stenosis of LCX, severely diseased RCA with prox stenosis, 100% occlusion in mid RCA and distal filling via right to right bridging collaterals and left to right collaterals arising from LCX CKD (chronic kidney disease), stage III COPD (chronic obstructive pulmonary disease) SOB, hx/o COPD. Supplemental oxygen -- pt does not use. Depression Falls frequently GERD (gastroesophageal reflux disease) Hyperlipidemia Hypertension Hypothyroidism Ischemic cardiomyopathy EF 50% per hospitalist history and physical. Loss of balance following with Dr. Villasenor. Myocardial Infarction 2001 --> CABG x3 JOVITA (obstructive sleep apnea) Osteoarthritis 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 defibrillator (ICD) and pacemaker Splenic lesion Stable angina Surgical History H/O bilateral inguinal hernia repair History of colonoscopy History of ERCP History of implantable cardioverter-defibrillator (ICD) insertion last checked ~1 month ago at Cardio office Hx of cholecystectomy S/P CABG x 3 2001 Family History Mother , age 83 of heart issues. 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 Required: No Beliefs That Will Affect Care: None Current Living Situation: Spouse Current Living Situation Comment: Lives with spouse in a home and his son current occupational status: retired Other Information That Helps Us Care for You: No other: 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 No adenopathy. Respiratory: normal respiratory effort and able to speak in complete sentences; no respiratory distress, no cough and no audible wheezes Auscultation: lungs clear to auscultation bilaterally; no crackles, no rales, no rhonchi and no wheezes Cardiovascular: Heart Sounds: normal S1, normal S2 and + murmur (blowing systolic murmur.); no gallop and no cardiac rub Palpation: normal PMI Vessels: posterior tibial pulses present and dorsalis pedis pulses present; no carotid bruit Extremities: normal capillary refill; no calf tenderness Gastrointestinal (Abdomen): normal bowel sounds, soft, nontender, no hepatosplenomegaly Percussion/Palpation: no guarding and abdomen not rigid Musculoskeletal: no cyanosis or clubbing, extremities motor strength 5/5 Skin: no rashes, warm and dry Neurologic: PERRL, EOMI, accommodation nl, no face palsy, no dysarthria Psychiatric: Orientation: alert, oriented x 3 and cooperative Lymphatic: no cervical or axillary lymphadenopathy Results & Data Results & [facility] ([facility]) Vital Signs (Past 12 Hours) Vital Signs Temp Pulse Pulse Resp BP Pulse Ox 04/08/21 11:22 36.7 C 81 20 112/68 94 04/08/21 11:20 64 16 98 04/08/21 07:39 75 04/08/21 07:30 71 18 100 04/08/21 07:21 36.4 C L 75 18 109/65 98 04/08/21 03:55 36.5 C 75 20 105/61 95 04/08/21 03:19 75 20 94 Laboratory Results 04/07/21 06:11 04/08/21 08:04 Diagnostic Findings Cannot find PFTs available to review. CT of the chest from 04/06/[address] angio chest PE protocol CLINICAL HISTORY: PE atypical chest pain. TECHNIQUE: Multidetector row helical CT of the chest was performed. Coronal and sagittal reformations were obtained. Automated dose lowering techniques and/or adjustment according to patient size were utilized for this exam. Comparison: Comparison is made to CT chest 01/08/2021 FINDINGS: Lungs and pleura: Interstitial opacities are seen. There is a moderate right and small left pleural effusion. Calcifications are noted in the left pleura, unchanged from prior exam. Multiple pulmonary nodules are unchanged from prior exam, largest measuring 6 mm in the right upper lobe (series 4 image 193). Heart and pericardium: There is cardiomegaly without evidence of pericardial effusion. Reflux of contrast is seen in the IVC. Vessels: No evidence of pulmonary embolism. Mediastinum and marie: Unremarkable. Chest wall and lower neck: Unremarkable. Abdomen: A small hiatal hernia is seen. Bones: Degenerative changes in the thoracic spine. IMPRESSION: 1. No evidence of pulmonary embolism. 2. Moderate right and small left pleural effusion, increased from prior exam. 3. Redemonstration of chronic interstitial opacities may represent scarring. Stable calcifications in the left pleural. 4. Stable small pulmonary nodules. 5. Cardiomegaly with likely heart failure. PG Care Time/CCT Total # of Minutes Spent Total Time Spent with Patient: Total time spent is greater than 50% in coordination of care (as documented) at patient's floor/unit and/or counseling patient: Coding Level of Care Code 40490 Initial Inpt Care Lvl 3 Diagnoses Pleural effusion J90
--- NOTE | 2021-04-08 17:21 | Hospitalist Progress Note ---
Date of Service April 08, 2021 Assessment & Plan (1) Respiratory failure: Plan: Acute on chronic respiratory failure with hypoxia Chronic oxygen dependency-3 L at baseline at bedtime COPD/ILD exacerbation Possible aspiration pneumonitis B/L Pleural Effusion -Negative COVID Screen -CTA:No evidence of pulmonary embolism. Moderate right and small left pleural effusion, increased from prior exam. Redemonstration of chronic interstitial opacities may represent scarring. Stable calcifications in the left pleural. Stable small pulmonary nodules. Cardiomegaly with likely heart failure. -Continue Augmentin, prednisone Continue nebs Continue supplemental oxygen as needed Speech therapy evaluation Appreciate pulmonology Input Pulmonary toilet Consider thoracentesis if needed Respiratory status slowly improving Acute on chronic systolic heart failure Bilateral pleural effusion CT as above H/O chronic systolic heart failure secondary to ischemic cardiomyopathy Last EF ~ 25%, S/P ICD/PPM Monitor I's and O's, daily weight Cautious use of IV diuretics given TAMI Given 40 mg IV Lasix today Appreciate Nephrology Input Reassess volume status tomorrow and consider diuretics as needed Acute kidney injury on CKD III Avoid nephrotoxic agents as able Monitor renal function Appreciate Nephrology Input H/O CAD S/P CABG/LBBB Continue aspirin, isosorbide, metoprolol, statin HTN On metoprolol Monitor Valvular heart disease moderate , moderate MR, mild AR, TTE 2020 Continue home medications Parkinson's disease chronic anemia Hb at baseline Hypothyroidism Continue levothyroxine Prediabetes HbA1c 5.9 DVT Px: Heparin SQ Code Status DNR/DNI Admission and Anticipated Discharge Date Admission Date: April 07, 2021 Subjective Patient is seen and examined at bedside States feeling better today Less dyspnea today Saturating well on minimal supplemental oxygen this morning Discussed with nephrology today Chest discomfort resolved Denies any dizziness, nausea, abdominal pain Review of Systems Review of Systems: All systems reviewed & are unremarkable except as noted in Subjective Physical Exam Physical Exam: Physical Exam: Vitals signs as noted above General Appearance: Chronically appearing, no apparent distress Head: normocephalic, Atraumatic Eyes: normal inspection, EOMI Neck: supple, Trachea midline Respiratory/Chest: Decreased breath sounds, B/L crackles Cardiovascular: S1, S2, + murmur Abdomen/GI:Soft, Non tender, Bowel sounds present Extremities/Musculoskeletal:normal inspection, no edema Neurologic/Psych:AAOX3, grossly no focal neurological deficits Skin: normal color, warm Results & Data Results & Data ([facility]) Vital Signs (Past 12 Hours) Vital Signs Temp Pulse Pulse Resp BP BP Pulse Ox 04/08/21 16:09 86 04/08/21 15:07 36.4 C L 82 18 102/63 100 04/08/21 14:36 66 16 94 04/08/21 11:22 36.7 C 81 20 112/68 94 04/08/21 11:20 64 16 98 04/08/21 07:39 75 04/08/21 07:30 71 18 100 04/08/21 07:21 36.4 C L 75 18 109/65 98 Laboratory Results BMP 04/08/21 08:04 Sodium 141 Potassium 3.6 D Chloride 107 Carbon Dioxide 27 BUN 50 H Creatinine 2.05 H Glucose 99 Calcium 8.5
[2021-04-08] MEDS: SIMVASTATIN 40 MG TAB PO SCH (21:11)
[2021-04-08] MEDS: DOCUSATE SODIUM 100 MG CAP PO PRN (21:11)
[2021-04-08] MEDS: NORTRIPTYLINE HCL 25 MG CAP PO SCH (21:11)
[2021-04-08] MEDS: ACETAMINOPHEN 325 MG TAB PO PRN (22:24)
[2021-04-09] MEDS: LEVALBUTEROL 1.25MG/0.5ML NEB INH SCH ×6 (02:21→22:05)
[2021-04-09] MEDS: IPRATROPIUM BROMIDE NEB SOLN 0.02% 2.5 ML VIAL INH SCH ×6 (02:21→22:05)
[2021-04-09] MEDS: HEPARIN SOD 5,000 UNIT/0.5 ML VIAL SQ SCH ×3 (05:27→19:58)
[2021-04-09] MEDS: LEVOTHYROXINE SODIUM 88 MCG TABLET PO SCH (05:27)
[2021-04-09 06:42] LABS: Hematocrit (blood only) 33.1 % (42-52); Hemoglobin 10.6 g/dL (14.0-18.0); Mean Corpuscular Hemoglobin 28.9 pg (25-34); Mean Corpuscular Volume 90.2 fL (80-100); Mean Platelet Volume 10.8 fL (7.4-10.4); Platelet Count 150 K/uL (130-400); RDW Standard Deviation 58.8 fL (36.4-46.3); Red Blood Count 3.67 M/uL (4.7-6.1); White Blood Count 9.23 K/uL (4.8-10.8)
[2021-04-09] MEDS: SODIUM CHLOR 7% 4 ML NEB NEB SCH ×2 (07:15→19:13)
[2021-04-09 07:16] LABS: BUN Creatinine Ratio 24.4 (10-20); Calcium 8.7 mg/dl (8.5-10.1); Creatinine Clr Calc Pharmacy 18.2 ml/min; Est GFR (African American) 24.4 ml/min; Potassium 3.8 mmol/L (3.5-5.1)
[2021-04-09] MEDS: AMOXICILLIN/CLAVULANATE 500 MG TAB PO SCH ×2 (07:56→16:50)
[2021-04-09] MEDS: SERTRALINE HCL 100 MG TABLET PO SCH (07:57)
[2021-04-09] MEDS: CYANOCOBALAMIN 500 MCG TABLET (VITAMIN B-12) PO SCH (07:57)
[2021-04-09] MEDS: PANTOprazole 40 MG TAB PO SCH (07:57)
[2021-04-09] MEDS: METOPROLOL SUCC 50MG EXT REL TAB PO SCH (07:58)
[2021-04-09] MEDS: ASPIRIN 81 MG ECTAB PO SCH (07:58)
[2021-04-09] MEDS: ISOSORBIDE MONO EXTENDED REL 60 MG TABCR PO SCH (07:58)
[2021-04-09] MEDS: FAMOTIDINE 40 MG TABLET PO SCH (07:59)
--- NOTE | 2021-04-09 10:13 | Fluoroscopy Report ---
FL video swallow CLINICAL HISTORY: 85 years-old Male with r/o aspiration. Dysphasia. Clinical concern for aspiration. TECHNIQUE: Video fluoroscopic evaluation of swallowing was performed in the AP and lateral projection s by the speech pathology staff. The patient is fed nectar-thick and thin liquid barium, a barium coa gordon wafer, and barium pudding. FLUOROSCOPY TIME: 3.5 minutes. COMPARISON STUDY: CTA chest 04/06/2021 FINDINGS: Penetration with thin liquid barium. No aspiration identified. Vallecular retention is note d throughout the study, most pronounced with pudding and solid consistencies. The oral pharyngeal pha se of swallowing is noted along with esophageal dysmotility. Prominent osteophytic spurring of the ce rvical spine. IMPRESSION: 1. Penetration without aspiration. 2. Please see the speech pathologist report for detailed findings and recommendations. ACT 112: Negative or not required by law. Electronically signed by: Manuel Li M.D. 04/09/2021 10:12 AM
--- NOTE | 2021-04-09 15:45 | Pulmonology Progress Note ---
Date of Service April 09, 2021 Assessment & Plan (1) Pleural effusion: (2) Chronic dyspnea: (3) Pulmonary emphysema: Plan: Impression: 85-year-old male with a past medical history of CKD stage III, moderate aortic stenosis, ischemic cardiomyopathy, CABG, valvular disease and COPD admitted with shortness of breath. Recommendations: 1. Pleural effusions: Likely secondary to underlying cardiomyopathy (EF of 25%) and end-stage renal disease. Effusions are fairly small. No clear indication for thoracentesis at this time. 2. Combined pulmonary fibrosis and emphysema: PFTs from 03/13/2021 reviewed. FEV1 42% predicted. FVC 44% predicted. Significant postbronchodilator response. TLC 54%. DLCO 41%. PFTs and CT chest imaging are suggestive of combined pulmonary fibrosis and emphysema. He does not appear to be in an exacerbation at this time. Continue supplemental oxygen and wean to maintain saturations of 88 to 92%. We will start the patient on Breo and Incruse Ellipta while in the hospital. Patient uses nebulizers at home. I placed a consult for palliative care given his cardiomyopathy, pulmonary disease and CKD 3. Long-term prognosis is poor. Hospice would likely be beneficial in this patient. Discussed with Hanh Asher. Pulmonary will sign off at this time. Thank you for the consult. Please call with questions. Admission and Anticipated Discharge Date Admission Date: April 07, 2021 Subjective Patient seen and examined this afternoon. He is having shortness of breath with minimal exertion. At times, he has shortness of breath with rest. His daughter is currently present in the room. He denies any coughing or chest pain. No significant swelling in his legs. Review of Systems Review of Systems: All systems reviewed & are unremarkable except as noted in HPI & below Physical Exam Constitutional: WD/WN, vitals as above cooperative; no acute distress Neck: trachea midline, no thyromegaly Supple. No adenopathy. Respiratory: normal respiratory effort and able to speak in complete sentences; no respiratory distress, no cough and no audible wheezes Auscultation: lungs clear to auscultation bilaterally; no crackles, no rales, no rhonchi and no wheezes Cardiovascular: Heart Sounds: normal S1, normal S2 and + murmur (blowing systolic murmur.); no gallop and no cardiac rub Palpation: normal PMI Vessels: posterior tibial pulses present and dorsalis pedis pulses present; no carotid bruit Extremities: normal capillary refill; no calf tenderness Gastrointestinal (Abdomen): normal bowel sounds, soft, nontender, no hepatosplenomegaly Percussion/Palpation: no guarding and abdomen not rigid Musculoskeletal: no cyanosis or clubbing, extremities motor strength 5/5 Skin: no rashes, warm and dry Neurologic: PERRL, EOMI, accommodation nl, no face palsy, no dysarthria Psychiatric: Orientation: alert, oriented x 3 and cooperative Results & Data Results & Data ([facility]) Vital Signs (Past 12 Hours) Vital Signs Temp Pulse Pulse Resp BP BP Pulse Ox 04/09/21 14:23 83 18 98 04/09/21 11:14 97.3 F L 81 18 111/73 100 04/09/21 10:52 84 18 100 04/09/21 08:00 82 04/09/21 07:53 98.1 F 85 18 112/71 95 04/09/21 07:16 86 18 95 04/09/21 03:49 97.9 F 89 18 114/70 98 PG Care Time/CCT Total # of Minutes Spent Total Time Spent with Patient: Total time spent is greater than 50% in coordination of care (as documented) at patient's floor/unit and/or counseling patient: Coding Level of Care Code 03882 Subseq Hosp Care Lvl 2 Diagnoses Pleural effusion J90 Chronic dyspnea R06.09 Pulmonary emphysema J43.9
--- NOTE | 2021-04-09 16:00 | Hospitalist Progress Note ---
Date of Service April 09, 2021 Assessment & Plan (1) Respiratory failure: Plan: Acute on chronic respiratory failure with hypoxia Chronic oxygen dependency-3 L at baseline at bedtime COPD/ILD exacerbation,Possible aspiration pneumonitis B/L Pleural Effusion Negative COVID Screen CTA:No evidence of pulmonary embolism. Moderate right and small left pleural effusion, increased from prior exam. Redemonstration of chronic interstitial opacities may represent scarring. Stable calcifications in the left pleural. Stable small pulmonary nodules. Cardiomegaly with likely heart failure. Continue Augmentin, prednisone Continue nebs Continue supplemental oxygen as needed Speech therapy evaluation Appreciate pulmonology Input and recommendation. Breo and Incruse Ellipta have been restarted as per pulmonary Consider thoracentesis is not considered as the effusion is very small Remains stable at rest but gets very shortness of breath with ambulation Acute on chronic systolic heart failure Bilateral pleural effusion is secondary H/O chronic systolic heart failure secondary to ischemic cardiomyopathy Last EF ~ 25%, S/P ICD/PPM Cautious use of IV diuretics given TAMI Given 40 mg IV Lasix today Appreciate Nephrology Input Reassess volume status tomorrow and consider diuretics as needed Acute kidney injury on CKD III Avoid nephrotoxic agents as able Monitor renal function Appreciate Nephrology Input H/O CAD S/P CABG/LBBB Continue aspirin, isosorbide, metoprolol, statin HTN On metoprolol Monitor Valvular heart disease moderate , moderate MR, mild AR, TTE 2020 Continue home medications Parkinson's disease chronic anemia Hb at baseline Hypothyroidism Continue levothyroxine Prediabetes HbA1c 5.9 DVT Px: Heparin SQ Code Status DNR/DNI Prognosis remains very poor Palliative has been consulted Admission and Anticipated Discharge Date Admission Date: April 07, 2021 Subjective 04/09/2021 The patient was seen and examined in medical telemetry unit He remains stable at rest but gets very shortness of breath with desaturation with ambulation Denies any chest pain and/or palpitation, no nausea and or vomiting Review of Systems Review of Systems: All systems reviewed and are unremarkable except as noted below Physical Exam Physical Exam: Lying in bed comfortably with minimal respiratory distress Constitutional: + acute distress, + ill appearing and average body habitus Eyes: PERRL, conjunctivae normal, anicteric sclerae ENMT: external ear and nose normal, oropharynx normal Neck: trachea midline, no thyromegaly Respiratory: + respiratory distress (Moderate distress at rest) Auscultation: + diminished lung sounds, + crackles (At the bases) and + wheezes Cardiovascular: Rate/Rhythm: regular rate and regular rhythm; not tachycardic Heart Sounds: normal S1 and normal S2; no murmur Extremities: + edema (Trac e edema bilaterally) Gastrointestinal (Abdomen): Inspection/Auscultation: normal bowel sounds; abdomen not distended Percussion/Palpation: abdomen soft; abdomen nontender Musculoskeletal: No acute arthritis in any joint Neurologic: Alert, awake and oriented x3. Extremely weak and lethargic Results & Data Results & Data ([facility]) Vital Signs (Past 12 Hours) Vital Signs Temp Pulse Pulse Resp BP BP Pulse Ox 04/09/21 15:46 36.4 C L 84 20 111/71 100 04/09/21 14:23 83 18 98 04/09/21 11:14 36.3 C L 81 18 111/73 100 04/09/21 10:52 84 18 100 04/09/21 08:00 82 04/09/21 07:53 36.7 C 85 18 112/71 95 04/09/21 07:16 86 18 95 Laboratory Results Short CBC 04/09/21 Range/Units 06:27 WBC 9.23 (4.8-10.8) K/uL Hgb 10.6 L (14.0-18.0) g/dL Hct 33.1 L (42-52) % Plt Count 150 (130-400) K/uL BMP 04/09/21 06:27 Sodium 139 Potassium 3.8 Chloride 105 Carbon Dioxide 24 BUN 65 H Creatinine 2.68 H D Glucose 94 Calcium 8.7 Medications Administered Current Inpatient Medications Acetaminophen (Acetaminophen 325 Mg Tab) 650 mg PO Q4H PRN PRN Reason: Pain or Fever Stop: 05/07/21 03:52 Last Admin: 04/08/21 22:24 Dose: 650 mg Documented by: Amoxicillin/Clavulanate Potassium (Amoxicillin/Clavulanate 500 Mg Tab) 1 tab PO BIDM [facility]; Protocol Stop: 04/14/21 07:59 Last Admin: 04/09/21 07:56 Dose: 1 tab Documented by: Aspirin (Aspirin 81 Mg Ectab) 81 mg PO QAM [facility] Stop: 05/07/21 08:59 Last Admin: 04/09/21 07:58 Dose: 81 mg Documented by: Cyanocobalamin (Cyanocobalamin 500 Mcg Tablet (Vitamin B-12)) 1,000 mcg PO DAILY ANITA Stop: 05/07/21 08:59 Last Admin: 04/09/21 07:57 Dose: 1,000 mcg Documented by: Docusate Sodium (Docusate Sodium 100 Mg Cap) 100 mg PO DAILY PRN PRN Reason: Constipation Stop: 05/07/21 04:25 Last Admin: 04/08/21 21:11 Dose: 100 mg Documented by: Famotidine (Famotidine 40 Mg Tablet) 40 mg PO QAM ANITA Stop: 05/07/21 08:59 Last Admin: 04/09/21 07:59 Dose: 40 mg Documented by: Fluticasone/Vilanterol (Fluticasone/Vilanterol 100/25mcg 14 Puffs/Inhaler) 1 puffs INH DAILY ANITA Stop: 05/09/21 15:59 Furosemide (Furosemide 20 Mg Tab) 20 mg PO DAILY ANITA Stop: 05/07/21 14:59 Heparin Sodium (Porcine) (Heparin Sod 5,000 Unit/0.5 Ml Vial) 5,000 units SQ Q8 ANITA Stop: 05/07/21 05:59 Last Admin: 04/09/21 05:27 Dose: 5,000 units Documented by: Promethazine HCl 6.25 mg/ (Sodium Chloride) 50.25 mls @ 201 mls/hr IV Q6H PRN PRN Reason: Nausea And Vomiting Stop: 05/07/21 03:52 Ipratropium [place] (Ipratropium [place] Neb Soln 0.02% 2.5 Ml Vial) 0.5 mg INH Q4R ANITA Stop: 05/07/21 06:44 Last Admin: 04/09/21 14:21 Dose: 0.5 mg Documented by: Isosorbide Mononitrate (Isosorbide [place] Extended Rel 60 Mg Tabcr) 60 mg PO DAILY ANITA Stop: 05/07/21 08:59 Last Admin: 04/09/21 07:58 Dose: 60 mg Documented by: Levalbuterol HCl (Levalbuterol 1.25mg/0.5ml Neb) 1.25 mg INH Q4R ANITA Stop: 05/07/21 06:44 Last Admin: 04/09/21 14:21 Dose: 1.25 mg Documented by: Levothyroxine Sodium (Levothyroxine Sodium 88 Mcg Tablet) 88 mcg PO DAILYBB [facility] Stop: 05/07/21 06:29 Last Admin: 04/09/21 05:27 Dose: 88 mcg Documented by: Metoprolol Succinate (Metoprolol Succ 50mg Ext Rel Tab) 50 mg PO QAM [facility] Stop: 05/08/21 08:59 Last Admin: 04/09/21 07:58 Dose: 50 mg Documented by: Miscellaneous Information (Amoxicillin/Clavulanate Consult Active) 1 ea N/A UD PRN PRN Reason: Consult Stop: 05/07/21 08:59 Nortriptyline HCl (Nortriptyline Hcl 25 Mg Cap) 100 mg PO [facility] Stop: 05/07/21 20:59 Last Admin: 04/08/21 21:11 Dose: 100 mg Documented by: Pantoprazole Sodium (Pantoprazole 40 Mg Tab) [facility]: 05/07/21 08:59 Last Admin: 04/09/21 07:57 Dose: 40 mg Documented by: Sertraline HCl (Sertraline Hcl 100 Mg Tablet) [facility] Stop: 05/07/21 08:59 Last Admin: 04/09/21 07:57 Dose: 100 mg Documented by: Simvastatin (Simvastatin 40 Mg Tab) 40 mg PO [facility] Stop: 05/07/21 20:59 Last Admin: 04/08/21 21:11 Dose: 40 mg Documented by: Sodium Chloride (Sodium Chlor 7% 4 Ml Neb) 4 ml NEB BIDR [facility] Stop: 05/07/21 11:59 Last Admin: 04/09/21 07:15 Dose: 4 ml Documented by: Tramadol HCl (Tramadol Hcl 50 Mg Tablet) 25 mg PO Q4H PRN PRN Reason: Pain Stop: 05/07/21 03:52 Umeclidinium [place] (Umeclidinium [place] 62.5mcg/Blister 7 Puffs/Inhaler) 1 puffs INH DAILY [facility] Stop: 05/09/21 15:59
[2021-04-09] MEDS: FLUTICASONE/VILANTEROL 100/25MCG 14 PUFFS/INHALER INH SCH (16:49)
[2021-04-09] MEDS: UMECLIDINIUM BROMIDE 62.5MCG/BLISTER 7 PUFFS/INHALER INH SCH (16:49)
--- NOTE | 2021-04-09 19:04 | Nephrology Progress Note ---
Date of Service April 09, 2021 Assessment & Plan (1) Acute kidney injury superimposed on chronic kidney disease: Plan: TAMI on CKD 3 - Likely 2/ fluid overload/ infection compounded by contrast induced nephropathy and diuretics His baseline Scr is @1.6--1.8, this has marginally risen to 2.09, UOP has been low and he has soft BP. He is perpherally dry but centrally loaded. Recommend increasing furosemide to 40 mg Iv now and daily assessment of volume status to adjust diuretic dose. - will hold diuretics for today; assess for need daily - daily bmp - ordered uacm - avoid nephrotoxics - Input and output - 2g Na diet. (2) COPD (chronic obstructive pulmonary disease): Plan: per pulmonary (3) Ischemic cardiomyopathy: Plan: EF 25%, on lasix 20 mg daily as OP > hold lasix for now Admission and Anticipated Discharge Date Admission Date: April 07, 2021 Subjective creat worse today; feels breathing very slightly better; palliative care c/s pending; no thoracentesis planned; denies edema or palpitations; notes some decreased UOP Review of Systems Review of Systems: All systems reviewed & are unremarkable except as noted in Subjective Physical Exam Constitutional: well developed, + frail appearing and cooperative; no acute distress Eyes: EOM intact bilaterally ENMT: Ears: no external ear abnormality Nose: no external nose abnormality Mouth: + dry oral mucous membranes Neck: no nuchal rigidity Respiratory: normal respiratory effort, + labored breathing, able to speak in complete sentences and + paradoxical thoraco-abdominal movement Auscultation: + diminished lung sounds (chance L base) and + crackles (start on L 2/[address] up posterior; tubular R BS) Cardiovascular: Rate/Rhythm: regular rate and regular rhythm Heart Sounds: normal S1, normal S2 and + murmur Gastrointestinal (Abdomen): Inspection/Auscultation: normal bowel sounds Percussion/Palpation: abdomen soft; abdomen nontender Musculoskeletal: Extremities: strength 5/5 throughout Skin: no rashes, warm and dry Neurologic: wild, fluent speech, no tremor Psychiatric: Orientation: alert and oriented x 3 Results & Data ([facility]) Vital Signs (Past 12 Hours) Vital Signs Temp Pulse Pulse Resp BP BP Pulse Ox 04/09/21 17:52 80 04/09/21 15:46 36.4 C L 84 20 111/71 100 04/09/21 14:23 83 18 98 04/09/21 11:14 36.3 C L 81 18 111/73 100 04/09/21 10:52 84 18 100 04/09/21 08:00 82 04/09/21 07:53 36.7 C 85 18 112/71 95 04/09/21 07:16 86 18 95 Laboratory Results 04/09/21 06:27 04/09/21 06:27
[2021-04-09] MEDS: NORTRIPTYLINE HCL 25 MG CAP PO SCH (19:58)
[2021-04-09] MEDS: ACETAMINOPHEN 325 MG TAB PO PRN (19:58)
[2021-04-09] MEDS: DOCUSATE SODIUM 100 MG CAP PO PRN (19:58)
[2021-04-09] MEDS: SIMVASTATIN 40 MG TAB PO SCH (19:58)
[2021-04-09 23:59] LABS: Appearance Urine Clear (Clear); Bacteria Urine Automated Negative (Negative); Bilirubin Urine Negative (Negative); Blood Urine Negative (Negative); Color Urine Yellow; Glucose Urine UA Negative (Negative); Ketones Urine Trace (Negative); Leukocyte Esterase Urine Trace (Negative); Nitrite Urine Negative (Negative); Protein Urine Trace (Negative); RBC Urine Automated 0-4 /hpf (0-4); Specific Gravity Urine 1.023 (1.000-1.030); Urobilinogen Urine Negative (Negative)
[2021-04-10] MEDS: LEVALBUTEROL 1.25MG/0.5ML NEB INH SCH ×6 (03:01→22:26)
[2021-04-10] MEDS: IPRATROPIUM BROMIDE NEB SOLN 0.02% 2.5 ML VIAL INH SCH ×6 (03:01→22:26)
[2021-04-10] MEDS: HEPARIN SOD 5,000 UNIT/0.5 ML VIAL SQ SCH ×3 (05:30→21:26)
[2021-04-10] MEDS: LEVOTHYROXINE SODIUM 88 MCG TABLET PO SCH (05:30)
[2021-04-10 07:05] LABS: BUN Creatinine Ratio 27.3 (10-20); Calcium 8.8 mg/dl (8.5-10.1); Creatinine Clr Calc Pharmacy 20.8 ml/min; Est GFR (African American) 28.7 ml/min; Est GFR (Non-African American) 24.8 ml/min; Potassium 3.3 mmol/L (3.5-5.1)
[2021-04-10] MEDS: SODIUM CHLOR 7% 4 ML NEB NEB SCH ×2 (07:25→19:25)
--- NOTE | 2021-04-10 08:12 | Palliative Care Consultation ---
Date of Consultation April 10, 2021 Assessment & Plan (1) Palliative care encounter: Mr. Julio is an 85 year old male who presented to the [facility] with increasing shortness of breath. Further PMH includes: Parkinson's disease, CHF EF 25% (TTE 2020), CAD s/p B/L AICD placement and CABG, mild aortic stenosis, moderate mitral regurgitation, aortic regurgitation, COPD, ILD, and hypothyroidism. On imaging, small pleural effusions were noted on CXR, but were not sizable for thoracentesis and per pulmonary it is suspected that the pleural effusions are related to his CHF and ESRD. A video swallow was performed and although he was noted to cough, he was not actively aspirating. Strengthening exercises were recommended. Palliative medicine was consulted to discuss overall goals of care. I was able to meet with the patient in room 255-1. he had just returned to his bed and had just ambulated to the bathroom with his oxygen. He said that he is feeling ok and just 'wants to go home'. He denies current pain or shortness of breath. The patient has been able to ambulate to the bathroom with his oxygen. I was able to talk with Toya on the phone at [phone]. She confirmed that she was able to talk with her other family members last evening and confirmed they would like him to return home. He would be happier at home with additional caregiver support. They do understand that their mother is unable to care for him at home. They would like to have the adult kids rotate and provide support. Her brother lives at the house but does work overnight some times and they are working on the logistics of this. This patient is not actively dying, but could benefit from the resource of hospice as it appears linear with the goals of the patient and his family. Diagnosis that are appropriate for hospice: CHF, CAD, ILD. We discussed hospice in depth and keeping him out of the hospital is a goal. We discussed that hospice is not 24/7 and its capabilities. She said that even if one of them would be able to stay overnight with their Mom and Dad and provide care. she said that there is enough of them to be able to be with them. As far as administering medication, there may be a varying level of comfort for this. I suggested that speaking to a hospice liason would be helpful in determining next steps. We did discuss SNF or home health transition and see what things look like from that standpoint after gentle rehab, but she said that they have a goal to have him return home for Thanksgiving. I discussed the above with Sanam ARDON in case management. I also updated Pulmonary and the hospitalist. Palliative will follow and continue to assist with any additional decision making necessary. (2) Hypoxia: (3) Dysphagia: History of Present Illness Reason for Consultation: Goals of care Requesting Physician: Dr. Cabrera Attending Physician: Bartolome Pineda MD History of Present Illness Mr. Julio is an 85 year old male who presented to the [facility] with increasing shortness of breath. Further PMH includes: Parkinson's disease, CHF EF 25% (TTE 2020), CAD s/p B/L AICD placement and CABG, mild aortic stenosis, moderate mitral regurgitation, aortic regurgitation, COPD, ILD, and hypothyroidism. On imaging, small pleural effusions were noted on CXR, but were not sizable for thoracentesis and per pulmonary it is suspected that the pleural effusions are related to his CHF and ESRD. A video swallow was performed and although he was noted to cough, he was not actively aspirating. Strengthening exercises were recommended. Palliative medicine was consulted to discuss overall goals of care. Please see A/P for further details. Thanks for involving Palliative Medicine with this individual. Allergies Allergy/AdvReac Type Severity Reaction Status Date / Time haloperidol Allergy Intermediate LOSS OF Verified 04/06/21 20:15 VISION Home Medications Medication Instructions Recorded Confirmed Type docusate sodium 100 mg tablet 100 mg PO DAILY PRN 03/09/18 04/06/21 History levothyroxine 88 mcg capsule 88 mcg PO QAM 03/09/18 04/06/21 History metoprolol succinate 50 mg 50 mg PO QAM 03/09/18 04/06/21 History tablet,extended release 24 hr nitroglycerin 0.4 mg sublingual 0.4 mg SUBLINGUAL DIRECTED PRN 03/09/18 04/06/21 History tablet nortriptyline 50 mg capsule 100 mg PO HS 03/09/18 04/06/21 History sertraline 100 mg tablet 100 mg PO QAM 03/09/18 04/06/21 History simvastatin 40 mg tablet 40 mg PO HS 03/09/18 04/06/21 History aspirin 81 mg tablet,delayed 81 mg PO QAM 03/18/19 04/06/21 History release (Adult Low Dose Aspirin) ketoconazole 2 % topical cream 1 appln TOP UD 03/18/19 04/06/21 History omeprazole 40 mg capsule,delayed 40 mg PO QAM 03/18/19 04/06/21 History release famotidine 40 mg tablet 40 mg PO QAM 07/31/19 04/06/21 History cyanocobalamin (vitamin B-12) 1,000 mcg PO DAILY 03/08/21 04/06/21 History 1,000 mcg capsule isosorbide mononitrate 60 mg 60 mg PO DAILY 03/08/21 04/06/21 History tablet,extended release 24 hr Oxygen Home #1 ea 03/22/21 04/06/21 Rx furosemide 20 mg tablet 20 mg PO DAILY 03/22/21 04/06/21 History ipratropium 0.5 mg-albuterol 3 mg 3 ml INH UD PRN #360 ml 03/22/21 04/06/21 Rx (2.5 mg base)/3 mL nebulization soln nebulizers #1 ea 03/22/21 04/06/21 Rx potassium chloride 10 mEq 10 meq PO QAM 03/22/21 04/06/21 History capsule,extended release Patient History Medical History (Updated 04/10/21 @ 08:12 by ELEAZAR Davis) Aortic stenosis, moderate Moderate/severe per 10/2019 ECHO CAD (coronary artery disease) 2001 - S/P CABG x 3 (OWEN-LAD, SVG-OM, SVG-PDA) 2006 -cardiac catheterization demonstrated severe diffuse disease with patent OWEN to LAD with occluded SVGs to the OM and PDA. 60% stenosis of LCX, severely diseased RCA with prox stenosis, 100% occlusion in mid RCA and distal filling via right to right bridging collaterals and left to right collaterals arising from LCX Chronic dyspnea CKD (chronic kidney disease), stage III COPD (chronic obstructive pulmonary disease) SOB, hx/o COPD. Supplemental oxygen -- pt does not use. Depression Dysphagia Falls frequently GERD (gastroesophageal reflux disease) Hyperlipidemia Hypertension Hypothyroidism Hypoxia Ischemic cardiomyopathy EF 50% per hospitalist history and physical. Loss of balance following with Dr. Villasenor. Myocardial Infarction 2001 --> CABG x3 JOVITA (obstructive sleep apnea) Osteoarthritis Palliative care encounter 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 defibrillator (ICD) and pacemaker Pulmonary emphysema Splenic lesion Stable angina Surgical History H/O bilateral inguinal hernia repair History of colonoscopy History of ERCP History of implantable cardioverter-defibrillator (ICD) insertion last checked ~1 month ago at Cardio office Hx of cholecystectomy S/P CABG x 3 2002 Family History Mother , age 83 of heart issues. 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 [employer] Feels Safe at Home: Yes Assistive Devices: Glasses, Oxygen - Continuous and Walker Review of Systems Review of Systems: [place] System Assessment Scale: Pain: 1/3 SOB: 1/3 Nausea: 0/3 Anxiety: 1/3 Palliative Performance Scale: 40% Physical Exam Constitutional: well developed, + frail appearing, cooperative and comfortable Respiratory: normal respiratory effort Auscultation: + diminished lung sounds Cardiovascular: Rate/Rhythm: regular rate and regular rhythm Heart Sounds: normal S1 and normal S2 Extremities: normal capillary refill Gastrointestinal (Abdomen): Inspection/Auscultation: abdomen normal to inspection Skin: + ecchymosis, + excoriations and + pallor Psychiatric: Orientation: alert, oriented x 3 and cooperative Insight: + limited insight Results & Data ([facility]) Vital Signs (Past 12 Hours) Vital Signs Temp Pulse Resp BP Pulse Ox 04/10/21 07:38 36.5 C 83 20 116/70 94 04/10/21 07:26 82 18 96 04/10/21 03:03 86 18 96 04/10/21 02:43 36.4 C L 85 20 107/65 98 04/09/21 22:39 36.7 C 91 H 18 110/70 98 04/09/21 22:06 80 16 96 PG Care Time/CCT Total # of Minutes Spent Total Time Spent with Patient: Total time spent is greater than 50% in coordination of care (as documented) at patient's floor/unit and/or counseling patient: 100 minutes with > 50% of that time spent assessing the patient, discussing goals of care, and collaborating with IDT Coding Level of Care Code 02650 Initial Inpt Care Lvl 3 Diagnoses Palliative care encounter Z51.5 Hypoxia R09.02 Dysphagia R13.10 Time Spent (min) 100
[2021-04-10] MEDS: SERTRALINE HCL 100 MG TABLET PO SCH (08:20)
[2021-04-10] MEDS: METOPROLOL SUCC 50MG EXT REL TAB PO SCH (08:20)
[2021-04-10] MEDS: ISOSORBIDE MONO EXTENDED REL 60 MG TABCR PO SCH (08:20)
[2021-04-10] MEDS: ASPIRIN 81 MG ECTAB PO SCH (08:20)
[2021-04-10] MEDS: PANTOprazole 40 MG TAB PO SCH (08:20)
[2021-04-10] MEDS: AMOXICILLIN/CLAVULANATE 500 MG TAB PO SCH ×2 (08:21→16:53)
[2021-04-10] MEDS: CYANOCOBALAMIN 500 MCG TABLET (VITAMIN B-12) PO SCH (08:21)
[2021-04-10] MEDS: UMECLIDINIUM BROMIDE 62.5MCG/BLISTER 7 PUFFS/INHALER INH SCH (08:21)
[2021-04-10] MEDS: FAMOTIDINE 40 MG TABLET PO SCH (08:21)
[2021-04-10] MEDS: FLUTICASONE/VILANTEROL 100/25MCG 14 PUFFS/INHALER INH SCH (08:21)
[2021-04-10] MEDS ORDERED: POTASSIUM CHLORIDE CRTAB 20 MEQ TABCR PO STA (08:52)
[2021-04-10] MEDS ORDERED: POTASSIUM CHLORIDE CRTAB 20 MEQ TABCR PO SCH (08:52)
[2021-04-10] MEDS ORDERED: MIRTAZAPINE TAB 15 MG TAB PO ONE (16:23)
--- NOTE | 2021-04-10 17:57 | Nephrology Progress Note ---
Date of Service April 10, 2021 Assessment & Plan (1) Acute kidney injury superimposed on chronic kidney disease: Plan: improving Stage 1 nonoliguric TAMI on CKD 3 - Likely 2/ fluid overload/ infection compounded by contrast induced nephropathy and diuretics His baseline Scr is @1.6--1.8, this peaked at 2.7 yesterday and is down to 2.3 today. UOP remains low and he has soft BP. He is peripherally dry but centrally overloaded. Recommend resuming lower dose furosemide 20 mg Iv now and daily assessment of volume status to adjust diuretic dose. may give further 20 mg IV lasix prn ON. UA not concerning for infection or for GN. - lasix dose as above - daily bmp - avoid nephrotoxins - Input and output - cont < 2g Na diet and 1.8L FR -agree w/ K he had po 40 mEq x 1 this am and will redose 20 mEq K x 1 now as well (2) COPD (chronic obstructive pulmonary disease): Plan: per pulmonary (3) Ischemic cardiomyopathy: Plan: EF 25%, on lasix 20 mg daily as OP > as above dose lasix for now Admission and Anticipated Discharge Date Admission Date: April 07, 2021 Subjective worsening air hunger when I saw him at about 1530. also some anxiety. Review of Systems Review of Systems: All systems reviewed & are unremarkable except as noted in Subjective Physical Exam Constitutional: well developed, + frail appearing and cooperative; no acute distress Eyes: EOM intact bilaterally ENMT: Ears: no external ear abnormality Nose: no external nose abnormality Mouth: + dry oral mucous membranes Neck: no nuchal rigidity Respiratory: normal respiratory effort, + labored breathing, able to speak in complete sentences (but dyspneic with speech), + prolonged expiratory phase and + paradoxical thoraco-abdominal movement Auscultation: + diminished lung sounds (chance L base) and + crackles (start on L 2/[address] up posterior; tubular R BS) Cardiovascular: Rate/Rhythm: regular rate and regular rhythm Heart Sounds: normal S1, normal S2 and + murmur Extremities: no edema Gastrointestinal (Abdomen): Inspection/Auscultation: normal bowel sounds Percussion/Palpation: abdomen soft; abdomen nontender Musculoskeletal: Extremities: strength 5/5 throughout Skin: no rashes, warm and dry Neurologic: wild, fluent speech Psychiatric: Orientation: alert and oriented x 3 Results & Data ([facility]) Vital Signs (Past 12 Hours) Vital Signs Temp Pulse Resp BP Pulse Ox 04/10/21 14:55 36.6 C 85 20 114/80 100 04/10/21 14:50 86 18 94 04/10/21 11:16 36.5 C 88 20 123/74 93 04/10/21 10:25 83 18 92 04/10/21 07:38 36.5 C 83 20 116/70 94 04/10/21 07:26 82 18 96 Laboratory Results 04/09/21 06:27 04/10/21 06:08
[2021-04-10] MEDS ORDERED: POTASSIUM CHLORIDE CRTAB 20 MEQ TABCR PO ONE (18:00)
[2021-04-10] MEDS ORDERED: FUROSEMIDE INJ 20 MG/2 ML VIAL IV ONE (18:00)
--- NOTE | 2021-04-10 18:04 | Hospitalist Progress Note ---
Date of Service April 10, 2021 Assessment & Plan (1) Respiratory failure: Plan: Palliative care encounter Appreciate palliative input and recommendation Possible skilled care/Home with hospice We will continue current medications Acute on chronic respiratory failure with hypoxia Chronic oxygen dependency-3 L at baseline at bedtime COPD/ILD exacerbation,Possible aspiration pneumonitis B/L Pleural Effusion Negative COVID Screen CTA:No evidence of pulmonary embolism. Moderate right and small left pleural effusion, increased from prior exam. Redemonstration of chronic interstitial opacities may represent scarring. Stable calcifications in the left pleural. Stable small pulmonary nodules. Cardiomegaly with likely heart failure. Continue Augmentin, prednisone Continue nebs Continue supplemental oxygen as needed Speech therapy evaluation Appreciate pulmonology Input and recommendation. Breo and Incruse Ellipta have been restarted as per pulmonary Consider thoracentesis is not considered as the effusion is very small Remains stable at rest but gets very shortness of breath with ambulation Remains shortness of breath at rest but otherwise stable Acute on chronic systolic heart failure Bilateral pleural effusion is secondary H/O chronic systolic heart failure secondary to ischemic cardiomyopathy Last EF ~ 25%, S/P ICD/PPM Cautious use of IV diuretics given TAMI Given 40 mg IV Lasix today Appreciate Nephrology Input Reassess volume status tomorrow and consider diuretics as needed Condition has been stable Acute kidney injury on CKD III Avoid nephrotoxic agents as able Monitor renal function Appreciate Nephrology Input and recommendation Not yet time for dialysis H/O CAD S/P CABG/LBBB Continue aspirin, isosorbide, metoprolol, statin HTN On metoprolol Monitor Valvular heart disease moderate , moderate MR, mild AR, TTE 2020 Continue home medications Parkinson's disease chronic anemia Hb at baseline Hypothyroidism Continue levothyroxine Prediabetes HbA1c 5.9 DVT Px: Heparin SQ Code Status DNR/DNI Prognosis remains very poor Admission and Anticipated Discharge Date Admission Date: April 07, 2021 Subjective 04/09/2021 The patient was seen and examined in medical telemetry unit He remains stable at rest but gets very shortness of breath with desaturation with ambulation Denies any chest pain and/or palpitation, no nausea and or vomiting 04/10/2021 The patient was seen and examined in medical telemetry unit He has been more shortness of breath and anxious today Denies any chest pain and/or palpitation Review of Systems Review of Systems: All systems reviewed and are unremarkable except as noted below Respiratory: Moderate shortness of breath at rest with cough Physical Exam Physical Exam: Lying in bed comfortably with minimal respiratory distress Constitutional: + acute distress, + ill appearing and average body habitus Eyes: PERRL, conjunctivae normal, anicteric sclerae ENMT: external ear and nose normal, oropharynx normal Neck: trachea midline, no thyromegaly Respiratory: + respiratory distress (Moderate distress at rest) Auscultation: + diminished lung sounds, + crackles (At the bases) and + wheezes Cardiovascular: Rate/Rhythm: regular rate and regular rhythm; not tachycardic Heart Sounds: normal S1 and normal S2; no murmur Extremities: + edema (Trace edema bilaterally) Gastrointestinal (Abdomen): Inspection/Auscultation: normal bowel sounds; abdomen not distended Percussion/Palpation: abdomen soft; abdomen nontender Musculoskeletal: No acute arthritis in any joint Neurologic: Alert, awake and oriented. Generally very weak and lethargic Results & Data Results & Data ([facility]) Vital Signs (Past 12 Hours) Vital Signs Temp Pulse Resp BP Pulse Ox 04/10/21 14:55 36.6 C 85 20 114/80 100 04/10/21 14:50 86 18 94 04/10/21 11:16 36.5 C 88 20 123/74 93 04/10/21 10:25 83 18 92 04/10/21 07:38 36.5 C 83 20 116/70 94 04/10/21 07:26 82 18 96 Laboratory Results [facility] 04/10/21 06:08 Sodium 140 Potassium 3.3 L Chloride 106 Carbon Dioxide 26 BUN 64 H Creatinine 2.34 H D Glucose 97 Calcium 8.8 Urine 04/09/21 Range/Units 23:30 Urine Color Yellow Urine Appearance Clear (Clear) Urine pH 5.0 (4.5-7.5) Ur Specific [place] 1.023 (1.000-1.030) Urine Protein Trace H (Negative) Urine Glucose (UA) Negative (Negative) Medications Administered Current Inpatient Medications Acetaminophen (Acetaminophen 325 Mg Tab) 650 mg PO Q4H PRN PRN Reason: Pain or Fever Stop: 05/07/21 03:52 Last Admin: 04/09/21 19:58 Dose: 650 mg Documented by: Amoxicillin/Clavulanate Potassium (Amoxicillin/Clavulanate 500 Mg Tab) 1 tab PO BIDM [facility]; Protocol Stop: 04/14/21 07:59 Last Admin: 04/10/21 16:53 Dose: 1 tab Documented by: Aspirin (Aspirin 81 Mg Ectab) 81 mg PO QAM [facility] Stop: 05/07/21 08:59 Last Admin: 04/10/21 08:20 Dose: 81 mg Documented by: Cyanocobalamin (Cyanocobalamin 500 Mcg Tablet (Vitamin B-12)) 1,000 mcg PO DAILY [facility] Stop: 05/07/21 08:59 Last Admin: 04/10/21 08:21 Dose: 1,000 mcg Documented by: Docusate Sodium (Docusate Sodium 100 Mg Cap) 100 mg PO DAILY PRN PRN Reason: Constipation Stop: 05/07/21 04:25 Last Admin: 04/09/21 19:58 Dose: 100 mg Documented by: Famotidine (Famotidine 40 Mg Tablet) 40 mg PO QAM [facility] Stop: 05/07/21 08:59 Last Admin: 04/10/21 08:21 Dose: 40 mg Documented by: Fluticasone/Vilanterol (Fluticasone/Vilanterol 100/25mcg 14 Puffs/Inhaler) 1 puffs INH DAILY [facility] Stop: 05/09/21 15:59 Last Admin: 04/10/21 08:21 Dose: 1 puffs Documented by: Furosemide (Furosemide 20 Mg Tab) 20 mg PO DAILY [facility] Stop: 05/07/21 14:59 Heparin Sodium (Porcine) (Heparin Sod 5,000 Unit/0.5 Ml Vial) 5,000 units SQ Q8 [facility] Stop: 05/07/21 05:59 Last Admin: 04/10/21 15:10 Dose: 5,000 units Documented by: Promethazine HCl 6.25 mg/ (Sodium Chloride) 50.25 mls @ 201 mls/hr IV Q6H PRN PRN Reason: Nausea And Vomiting Stop: 05/07/21 03:52 Ipratropium [place] (Ipratropium [place] Neb Soln 0.02% 2.5 Ml Vial) 0.5 mg INH Q4R [facility] Stop: 05/07/21 06:44 Last Admin: 04/10/21 14:49 Dose: 0.5 mg Documented by: Isosorbide Mononitrate (Isosorbide [place] Extended Rel 60 Mg Tabcr) 60 mg PO DAILY [facility] Stop: 05/07/21 08:59 Last Admin: 04/10/21 08:20 Dose: 60 mg Documented by: Levalbuterol HCl (Levalbuterol 1.25mg/0.5ml Neb) 1.25 mg INH Q4R [facility] Stop: 05/07/21 06:44 Last Admin: 04/10/21 14:49 Dose: 1.25 mg Documented by: Levothyroxine Sodium (Levothyroxine Sodium 88 Mcg Tablet) 88 mcg PO DAILYBB [facility] Stop: 05/07/21 06:29 Last Admin: 04/10/21 05:30 Dose: 88 mcg Documented by: Metoprolol Succinate (Metoprolol Succ 50mg Ext Rel Tab) 50 mg PO QAM [facility] Stop: 05/08/21 08:59 Last Admin: 04/10/21 08:20 Dose: 50 mg Documented by: Miscellaneous Information (Amoxicillin/Clavulanate Consult Active) 1 ea N/A UD PRN PRN Reason: Consult Stop: 05/07/21 08:59 Nortriptyline HCl (Nortriptyline Hcl 25 Mg Cap) 100 mg PO [facility] Stop: 05/07/21 20:59 Last Admin: 04/09/21 19:58 Dose: 100 mg Documented by: Pantoprazole Sodium (Pantoprazole 40 Mg Tab) 40 mg PO QAM [facility] Stop: 05/07/21 08:59 Last Admin: 04/10/21 08:20 Dose: 40 mg Documented by: Sertraline HCl (S[facility]ine Hcl 100 Mg Tablet) [facility] [place]: 05/07/21 08:59 Last Admin: 04/10/21 08:20 Dose: 100 mg Documented by: Simvastatin (Simvastatin 40 Mg Tab) 40 mg PO HS [facility] Stop: 05/07/21 20:59 Last Admin: 04/09/21 19:58 Dose: 40 mg Documented by: Sodium Chloride (Sodium Chlor 7% 4 Ml Neb) 4 ml NEB BIDR [facility] Stop: 05/07/21 11:59 Last Admin: 04/10/21 07:25 Dose: 4 ml Documented by: Tramadol HCl (Tramadol Hcl 50 Mg Tablet) 25 mg PO Q4H PRN PRN Reason: Pain Stop: 05/07/21 03:52 Umeclidinium [place] (Umeclidinium [place] 62.5mcg/Blister 7 Puffs/Inhaler) 1 puffs INH DAILY [facility] Stop: 05/09/21 15:59 Last Admin: 04/10/21 08:21 Dose: 1 puffs Documented by:
[2021-04-10] MEDS: NORTRIPTYLINE HCL 25 MG CAP PO SCH (21:26)
[2021-04-10] MEDS: SIMVASTATIN 40 MG TAB PO SCH (21:26)
[2021-04-11] MEDS: IPRATROPIUM BROMIDE NEB SOLN 0.02% 2.5 ML VIAL INH SCH ×6 (03:27→19:54)
[2021-04-11] MEDS: LEVALBUTEROL 1.25MG/0.5ML NEB INH SCH ×6 (03:28→19:54)
[2021-04-11] MEDS: LEVOTHYROXINE SODIUM 88 MCG TABLET PO SCH (06:10)
[2021-04-11] MEDS: HEPARIN SOD 5,000 UNIT/0.5 ML VIAL SQ SCH ×2 (06:10→15:02)
[2021-04-11] MEDS: SODIUM CHLOR 7% 4 ML NEB NEB SCH ×2 (07:18→19:54)
[2021-04-11] MEDS: CYANOCOBALAMIN 500 MCG TABLET (VITAMIN B-12) PO SCH (07:50)
[2021-04-11] MEDS: FAMOTIDINE 40 MG TABLET PO SCH (07:50)
[2021-04-11] MEDS: AMOXICILLIN/CLAVULANATE 500 MG TAB PO SCH ×2 (07:50→17:51)
[2021-04-11] MEDS: METOPROLOL SUCC 50MG EXT REL TAB PO SCH (07:51)
[2021-04-11] MEDS: PANTOprazole 40 MG TAB PO SCH (07:51)
[2021-04-11] MEDS: ASPIRIN 81 MG ECTAB PO SCH (07:51)
[2021-04-11] MEDS: ISOSORBIDE MONO EXTENDED REL 60 MG TABCR PO SCH (07:51)
[2021-04-11] MEDS: UMECLIDINIUM BROMIDE 62.5MCG/BLISTER 7 PUFFS/INHALER INH SCH (07:52)
[2021-04-11] MEDS: SERTRALINE HCL 100 MG TABLET PO SCH (07:52)
[2021-04-11] MEDS: FLUTICASONE/VILANTEROL 100/25MCG 14 PUFFS/INHALER INH SCH (07:52)
[2021-04-11 08:06] LABS: Hematocrit (blood only) 34.2 % (42-52); Hemoglobin 11.2 g/dL (14.0-18.0); Immature Granulocytes # (auto) 0.04 K/uL (0.00-0.02); Immature Granulocytes % (auto) 0.4 %; Lymphocytes # (auto) 0.79 K/uL (1.2-3.4); Lymphocytes % (auto) 7.4 %; Mean Corpuscular Hemoglobin 29.3 pg (25-34); Mean Corpuscular Hgb Conc 32.7 g/dL (32-36); Mean Corpuscular Volume 89.5 fL (80-100); Mean Platelet Volume 11.5 fL (7.4-10.4); Monocytes # (auto) 0.63 K/uL (0.11-0.59); Monocytes % (auto) 5.9 %; Neutrophils # (auto) 9.17 K/uL (1.4-6.5); Neutrophils % (auto) 86.3 %; Platelet Count 140 K/uL (130-400); RDW Standard Deviation 59.2 fL (36.4-46.3); Red Blood Count 3.82 M/uL (4.7-6.1); White Blood Count 10.63 K/uL (4.8-10.8)
[2021-04-11 08:38] LABS: BUN Creatinine Ratio 28.9 (10-20); Creatinine Clr Calc Pharmacy 20.5 ml/min; Est GFR (African American) 28.3 ml/min; Est GFR (Non-African American) 24.4 ml/min; Magnesium 2.8 mg/dl (1.8-2.4); Phosphorus 4.2 mg/dl (2.5-4.9); Potassium 4.6 mmol/L (3.5-5.1)
[2021-04-11] MEDS ORDERED: FUROSEMIDE INJ 20 MG/2 ML VIAL IV ONE ×2 (11:35→19:35)
--- NOTE | 2021-04-11 14:47 | Hospitalist Progress Note ---
Date of Service April 11, 2021 Assessment & Plan (1) Respiratory failure: Plan: Palliative care encounter Appreciate palliative input and recommendation Possible skilled care/Home with hospice We will continue current medications Condition got worse He has been waiting to make you will Acute on chronic respiratory failure with hypoxia Chronic oxygen dependency-3 L at baseline at bedtime COPD/ILD exacerbation,Possible aspiration pneumonitis B/L Pleural Effusion Negative COVID Screen CTA:No evidence of pulmonary embolism. Moderate right and small left pleural effusion, increased from prior exam. Redemonstration of chronic interstitial opacities may represent scarring. Stable calcifications in the left pleural. Stable small pulmonary nodules. Cardiomegaly with likely heart failure. Continue Augmentin, prednisone Continue nebs Continue supplemental oxygen as needed Speech therapy evaluation Appreciate pulmonology Input and recommendation. Breo and Incruse Ellipta have been restarted as per pulmonary Consider thoracentesis is not considered as the effusion is very small Condition is worsened today with more shortness of breath and confusion Denies any pain Acute on chronic systolic heart failure Bilateral pleural effusion is secondary H/O chronic systolic heart failure secondary to ischemic cardiomyopathy Last EF ~ 25%, S/P ICD/PPM Cautious use of IV diuretics given TAMI Given 40 mg IV Lasix today Appreciate Nephrology Input Reassess volume status tomorrow and consider diuretics as needed Condition has been stable Acute kidney injury on CKD III Avoid nephrotoxic agents as able Monitor renal function Appreciate Nephrology Input and recommendation Not yet time for dialysis-creatinine remains stable at 2.37 H/O CAD S/P CABG/LBBB Continue aspirin, isosorbide, metoprolol, statin HTN On metoprolol Monitor Valvular heart disease moderate , moderate MR, mild AR, TTE 2020 Continue home medications Parkinson's disease chronic anemia Hb at baseline Hypothyroidism Continue levothyroxine Prediabetes HbA1c 5.9 DVT Px: Heparin SQ Code Status DNR/DNI Prognosis remains very poor Admission and Anticipated Discharge Date Admission Date: April 07, 2021 Subjective 04/09/2021 The patient was seen and examined in medical telemetry unit He remains stable at rest but gets very shortness of breath with desaturation with ambulation Denies any chest pain and/or palpitation, no nausea and or vomiting 04/10/2021 The patient was seen and examined in medical telemetry unit He has been more shortness of breath and anxious today Denies any chest pain and/or palpitation 04/11/2021 The patient was seen and examined in medical telemetry unit He has been a little worse today and complaining of more shortness of breath Seems to be pleasantly confused but has been communicating reasonably well Review of Systems Review of Systems: All systems reviewed and are unremarkable except as noted below Respiratory: Moderate shortness of breath at rest with cough Physical Exam Physical Exam: Lying in bed comfortably with moderate respiratory distress Constitutional: + acute distress, + ill appearing and average body habitus Eyes: PERRL, conjunctivae normal, anicteric sclerae ENMT: external ear and nose normal, oropharynx normal Neck: trachea midline, no thyromegaly Respiratory: + respiratory distress (Moderate distress at rest) Auscultation: + diminished lung sounds, + crackles (At the bases) and + wheezes Cardiovascular: Rate/Rhythm: regular rate and regular rhythm; not tachycardic Heart Sounds: normal S1 and normal S2; no murmur Extremities: + edema (Trace edema bilaterally) Gastrointestinal (Abdomen): Inspection/Auscultation: normal bowel sounds; abdomen not distended Percussion/Palpation: abdomen soft; abdomen nontender Musculoskeletal: No acute arthritis in any joint Neurologic: Alert, awake. Pleasantly confused. Lethargic Lymphatic: no cervical or axillary lymphadenopathy Results & Data Results & Data ([facility]) Vital Signs (Past 12 Hours) Vital Signs Temp Pulse Resp BP BP Pulse Ox 04/11/21 11:41 36.6 C 74 18 110/53 L 94 04/11/21 10:48 82 18 98 04/11/21 07:38 36.4 C L 69 18 100/66 97 04/11/21 04:00 36.6 C 85 18 104/66 98 Laboratory Results Short CBC 04/11/21 Range/Units 07:35 WBC 10.63 (4.8-10.8) K/uL Hgb 11.2 L (14.0-18.0) g/dL Hct 34.2 L (42-52) % Plt Count 140 (130-400) K/uL BMP 04/11/21 07:35 Sodium 141 Potassium 4.6 D Chloride 109 H Carbon Dioxide 23 BUN 68 H Creatinine 2.37 H Glucose 89 Calcium 9.0 Medications Administered Current Inpatient Medications Acetaminophen (Acetaminophen 325 Mg Tab) 650 mg PO Q4H PRN PRN Reason: Pain or Fever Stop: 05/07/21 03:52 Last Admin: 04/09/21 19:58 Dose: 650 mg Documented by: Amoxicillin/Clavulanate Potassium (Amoxicillin/Clavulanate 500 Mg Tab) 1 tab PO BIDM [facility]; Protocol Stop: 04/14/21 07:59 Last Admin: 04/11/21 07:50 Dose: 1 tab Documented by: Aspirin (Aspirin 81 Mg Ectab) 81 mg PO QAM [facility] Stop: 05/07/21 08:59 Last Admin: 04/11/21 07:51 Dose: 81 mg Documented by: Cyanocobalamin (Cyanocobalamin 500 Mcg Tablet (Vitamin B-12)) 1,000 mcg PO DAILY [facility] Stop: 05/07/21 08:59 Last Admin: 04/11/21 07:50 Dose: 1,000 mcg Documented by: Docusate Sodium (Docusate Sodium 100 Mg Cap) 100 mg PO DAILY PRN PRN Reason: Constipation Stop: 05/07/21 04:25 Last Admin: 04/09/21 19:58 Dose: 100 mg Documented by: Famotidine (Famotidine 40 Mg Tablet) 40 mg PO QAM [facility] Stop: 05/07/21 08:59 Last Admin: 04/11/21 07:50 Dose: 40 mg Documented by: Fluticasone/Vilanterol (Fluticasone/Vilanterol 100/25mcg 14 Puffs/Inhaler) 1 puffs INH DAILY [facility] Stop: 05/09/21 15:59 Last Admin: 04/11/21 07:52 Dose: 1 puffs Documented by: Furosemide (Furosemide 20 Mg Tab) 20 mg PO DAILY [facility] Stop: 05/07/21 14:59 Heparin Sodium (Porcine) (Heparin Sod 5,000 Unit/0.5 Ml Vial) 5,000 units SQ Q8 [facility] Stop: 05/07/21 05:59 Last Admin: 04/11/21 06:10 Dose: Not Given Documented by: Promethazine HCl 6.25 mg/ (Sodium Chloride) 50.25 mls @ 201 mls/hr IV Q6H PRN PRN Reason: Nausea And Vomiting Stop: 05/07/21 03:52 Ipratropium [place] (Ipratropium [place] Neb Soln 0.02% 2.5 Ml Vial) 0.5 mg INH Q4R [facility] Stop: 05/07/21 06:44 Last Admin: 04/11/21 10:46 Dose: 0.5 mg Documented by: Isosorbide Mononitrate (Isosorbide [place] Extended Rel 60 Mg Tabcr) 60 mg PO DAILY [facility] Stop: 05/07/21 08:59 Last Admin: 04/11/21 07:51 Dose: 60 mg Documented by: Levalbuterol HCl (Levalbuterol 1.25mg/0.5ml Neb) 1.25 mg INH Q4R [facility] Stop: 05/07/21 06:44 Last Admin: 04/11/21 10:46 Dose: 1.25 mg Documented by: Levothyroxine Sodium (Levothyroxine Sodium 88 Mcg Tablet) 88 mcg PO DAILYBB [facility] Stop: 05/07/21 06:29 Last Admin: 04/11/21 06:10 Dose: Not Given Documented by: Metoprolol Succinate (Metoprolol Succ 50mg Ext Rel Tab) 50 mg PO QAM [facility] Stop: 05/08/21 08:59 Last Admin: 04/11/21 07:51 Dose: 50 mg Documented by: Miscellaneous Information (Amoxicillin/Clavulanate Consult Active) 1 ea N/A UD PRN PRN Reason: Consult Stop: 05/07/21 08:59 Nortriptyline HCl (Nortriptyline Hcl 25 Mg Cap) 100 mg PO [facility] Stop: 05/07/21 20:59 Last Admin: 04/10/21 21:26 Dose: 100 mg Documented by: Pantoprazole Sodium (Pantoprazole 40 Mg Tab) 40 mg PO QAM [facility] Stop: 05/07/21 08:59 Last Admin: 04/11/21 07:51 Dose: 40 mg Documented by: Sertraline HCl (Sertraline Hcl 100 Mg Tablet) 100 mg PO QAM [facility] Stop: 05/07/21 08:59 Last Admin: 04/11/21 07:52 Dose: 100 mg Documented by: Simvastatin (Simvastatin 40 Mg Tab) 40 mg PO [facility] Stop: 05/07/21 20:59 Last Admin: 04/10/21 21:26 Dose: 40 mg Documented by: Sodium Chloride (Sodium Chlor 7% 4 Ml Neb) 4 ml NEB BIDR [facility] Stop: 05/07/21 11:59 Last Admin: 04/11/21 07:18 Dose: Not Given Documented by: Tramadol HCl (Tramadol Hcl 50 Mg Tablet) 25 mg PO Q4H PRN PRN Reason: Pain Stop: 05/07/21 03:52 Umeclidinium [place] (Umeclidinium [place] 62.5mcg/Blister 7 Puffs/Inhaler) 1 puffs INH DAILY [facility] Stop: 05/09/21 15:59 Last Admin: 04/11/21 07:52 Dose: 1 puffs Documented by:
[2021-04-11 19:01] LABS: HCO3 ABG 19 mmol/L (19-24); Oxygen Saturation ABG 97.6 % (90-95); PCO2 ABG 29 mmHg (35-46); PO2 ABG 97 mmHg (80-95); pH ABG 7.42 (7.35-7.45)
[2021-04-11 19:14] LABS: BUN Creatinine Ratio 26.6 (10-20); Calcium 8.8 mg/dl (8.5-10.1); Creatinine Clr Calc Pharmacy 16.8 ml/min; Est GFR (African American) 22.3 ml/min; Est GFR (Non-African American) 19.2 ml/min; Potassium 5.2 mmol/L (3.5-5.1)
[2021-04-11 19:20] LABS: Allen Test Pos (Pos)
--- NOTE | 2021-04-11 19:41 | Nephrology Progress Note ---
Date of Service April 11, 2021 Assessment & Plan (1) Acute kidney injury superimposed on chronic kidney disease: Plan: Stage 1 nonoliguric TAMI on CKD 3 with lability d/t need for intermittent diuresis - Likely 2/ fluid overload/ infection compounded by contrast induced nephropathy and diuretics His baseline Scr is @1.6--1.8, this peaked at 2.9 this evening. UOP remains low and he has soft BP. He is peripherally dry but centrally overloaded. Recommend resuming lower dose furosemide 10 mg Iv bid17 with daily assessment of volume status to adjust diuretic dose. may give further 20 mg IV lasix prn ON. UA not concerning for infection or for GN. - lasix dose as above - daily bmp - avoid nephrotoxins - Input and output - cont < 2g Na diet and 1.8L FR - no need for k supplemnt today >>discussed altered clinical status w/ Dr Pineda (2) COPD (chronic obstructive pulmonary disease): Plan: per pulmonary (3) Ischemic cardiomyopathy: Plan: EF 25%, on lasix 20 mg daily as OP > as above dose lasix for now Admission and Anticipated Discharge Date Admission Date: April 07, 2021 Subjective Lethargic today with daughter by bedside. Awakens with peaked stimuli but drifts off again immediately. Denies pain. Denies worsening shortness of breath. RN reports patient has been this way intermittently through the day. He refused both nebs overnight. Taking no p.o.: Needs to be fed. Review of Systems Review of Systems: Other (Limited as above by current clinical status) Physical Exam Constitutional: well developed, + altered mental status, + frail appearing and + lethargic; no acute distress Eyes: EOM intact bilaterally ENMT: Ears: no external ear abnormality Nose: no external nose abnormality Mouth: + dry oral mucous membranes Neck: no nuchal rigidity Respiratory: normal respiratory effort, + labored breathing, + prolonged expiratory phase and + paradoxical thoraco-abdominal movement Auscultation: + diminished lung sounds Cardiovascular: Rate/Rhythm: regular rate and regular rhythm Heart Sounds: normal S1, normal S2 and + murmur Extremities: no edema Gastrointestinal (Abdomen): Inspection/Auscultation: normal bowel sounds Percussion/Palpation: abdomen soft; abdomen nontender Musculoskeletal: strength abnormal Skin: no rashes, warm and dry Results & Data ([facility]) Vital Signs (Past 12 Hours) Vital Signs Temp Pulse Resp BP BP Pulse Ox 04/11/21 15:40 36.2 C L 77 18 102/71 98 04/11/21 14:53 80 20 97 04/11/21 11:41 36.6 C 74 18 110/53 L 94 04/11/21 10:48 82 18 98 04/11/21 07:38 36.4 C L 69 18 100/66 97 Laboratory Results 04/11/21 07:35 04/11/21 18:40
--- NOTE | 2021-04-11 20:25 | Communication Note ---
Date of Service: April 11, 2021 Transition to comfort measures as per discussion with a.m. provider.
[2021-04-11] MEDS: LORazepam 1 MG/2 ML VIAL IV PRN ×3 (20:59→22:32)
[2021-04-11] MEDS: MoRPHine SULFATE 4 MG/ML 1 ML CARP\\VIAL IV PRN ×3 (21:52→23:59)
[2021-04-11] MEDS: ATROPINE SULFATE 1% OP SOLN 5 ML BTL SL PRN (23:19)
[2021-04-12] MEDS: ATROPINE SULFATE 1% OP SOLN 5 ML BTL SL PRN ×3 (00:46→17:12)
[2021-04-12] MEDS: LORazepam 1 MG/2 ML VIAL IV PRN (01:00)
[2021-04-12] MEDS: MoRPHine SULFATE 4 MG/ML 1 ML CARP\\VIAL IV PRN ×2 (01:00→01:49)
[2021-04-12] MEDS ORDERED: STAT IV Infusion **Titration per Protocol STA (01:48)
[2021-04-12] MEDS ORDERED: GLYCOPYRROLATE 0.2 MG/ML VIAL IV PRN (01:48)
[2021-04-12] MEDS ORDERED: MoRPHine SULFATE 4 MG/ML 1 ML CARP\\VIAL IV PRN ×2 (01:50→04:45)
[2021-04-12] MEDS ORDERED: MoRPHine SULF/NSS 250 MG/250 ML BTL IV SCH (02:00)
--- NOTE | 2021-04-12 10:47 | Hospitalist Progress Note ---
Date of Service April 12, 2021 Assessment & Plan (1) Respiratory failure: Plan: Palliative care encounter Appreciate palliative input and recommendation Possible skilled care/Home with hospice We will continue current medications Condition got worse He has been waiting to make you will In general condition deteriorated since last evening Has been on comfort care since last evening Family members especially the and the daughter are with him in the room Getting supportive medications Following up the main medical conditions he has been suffering from: Acute on chronic respiratory failure with hypoxia Chronic oxygen dependency-3 L at baseline at bedtime COPD/ILD exacerbation,Possible aspiration pneumonitis B/L Pleural Effusion Negative COVID Screen CTA:No evidence of pulmonary embolism. Moderate right and small left pleural effusion, increased from prior exam. Redemonstration of chronic interstitial opacities may represent scarring. Stable calcifications in the left pleural. Stable small pulmonary nodules. Cardiomegaly with likely heart failure. Continue Augmentin, prednisone Continue nebs Continue supplemental oxygen as needed Speech therapy evaluation Appreciate pulmonology Input and recommendation. Breo and Incruse Ellipta have been restarted as per pulmonary Consider thoracentesis is not considered as the effusion is very small Condition is worsened today with more shortness of breath and confusion Denies any pain Acute on chronic systolic heart failure Bilateral pleural effusion is secondary H/O chronic systolic heart failure secondary to ischemic cardiomyopathy Last EF ~ 25%, S/P ICD/PPM Cautious use of IV diuretics given TAMI Given 40 mg IV Lasix today Appreciate Nephrology Input Reassess volume status tomorrow and consider diuretics as needed Condition has been stable Acute kidney injury on CKD III Avoid nephrotoxic agents as able Monitor renal function Appreciate Nephrology Input and recommendation Not yet time for dialysis-creatinine remains stable at 2.37 H/O CAD S/P CABG/LBBB Continue aspirin, isosorbide, metoprolol, statin HTN On metoprolol Monitor Valvular heart disease moderate , moderate MR, mild AR, TTE 2020 Continue home medications Parkinson's disease chronic anemia Hb at baseline Hypothyroidism Continue levothyroxine Prediabetes HbA1c 5.9 DVT Px: Heparin SQ Code Status DNR/DNI Prognosis remains very poor Family members updated Admission and Anticipated Discharge Date Admission Date: April 07, 2021 Subjective 04/09/2021 The patient was seen and examined in medical telemetry unit He remains stable at rest but gets very shortness of breath with desaturation with ambulation Denies any chest pain and/or palpitation, no nausea and or vomiting 04/10/2021 The patient was seen and examined in medical telemetry unit He has been more shortness of breath and anxious today Denies any chest pain and/or palpitation 04/11/2021 The patient was seen and examined in medical telemetry unit He has been a little worse today and complaining of more shortness of breath Seems to be pleasantly confused but has been communicating reasonably well 04/12/2021 The patient was seen and examined in medical telemetry unit His condition has been deteriorating since last evening and he has been with the family members in the room He has made comfort care since last evening Has Celso-Ribeiro breathing but not in any distress Review of Systems Review of Systems: Unobtainable due to cognitive status Physical Exam Physical Exam: Lying in bed with Celso-Ribeiro breathing Constitutional: + acute distress, + ill appearing and average body habitus Eyes: PERRL, conjunctivae normal, anicteric sclerae ENMT: external ear and nose normal, oropharynx normal Neck: trachea midline, no thyromegaly Respiratory: + respiratory distress (Moderate distress at rest) Auscultation: + diminished lung sounds, + crackles (At the bases) and + wheezes Cardiovascular: Rate/Rhythm: regular rate and regular rhythm; not tachycardic Heart Sounds: normal S1 and normal S2; no murmur Extremities: + edema (T race edema bilaterally) Gastrointestinal (Abdomen): Inspection/Auscultation: normal bowel sounds; abdomen not distended Percussion/Palpation: abdomen soft; abdomen nontender Neurologic: Remains unconscious Lymphatic: no cervical or axillary lymphadenopathy Results & Data Results & Data ([facility]) Laboratory Results [facility] 04/11/21 18:40 Sodium 141 Potassium 5.2 H Chloride 110 H Carbon Dioxide 18 L BUN 77 H Creatinine 2.89 H D Glucose 58 L Calcium 8.8 Medications Administered Current Inpatient Medications Atropine Sulfate (Atropine Sulfate 1% Op Soln 5 Ml Btl) 4 drops SL Q1H PRN PRN Reason: Secretions or pulm congestion Stop: 05/11/21 22:39 Last Admin: 04/12/21 01:49 Dose: 4 drops Documented by: Glycopyrrolate (Glycopyrrolate 0.2 Mg/Ml Vial) 0.2 mg IV Q4H PRN PRN Reason: Secretions or Pulm Congestion Stop: 05/12/21 01:47 Last Admin: 04/12/21 02:44 Dose: 0.2 mg Documented by: Lorazepam (Ativan) 1 mg in 2 mls @ 0.5 mls/min IV Q15M PRN PRN Reason: Anxiety/Agitation Stop: 05/11/21 20:19 Last Admin: 04/12/21 01:00 Dose: 0.5 mls/min Documented by: Morphine Sulfate (Morphine Sulf/Nss) 250 mg in 250 mls @ 1 mls/hr IV .Q96H [facility]; Protocol Stop: 04/26/21 01:59 Morphine Sulfate (Morphine Sulfate 4 Mg/Ml 1 Ml Carp\Vial) 4 mg IV Q15M PRN PRN Reason: Pain/sob Stop: 04/25/21 20:19
--- NOTE | 2021-04-12 17:51 | Communication Note ---
Date of Service: April 12, 2021 Asked to pronounce. On examination; Totally unresponsive to any stimuli No pulse and her breathing and no heart sounds on auscultation Pupils orally dilated and fixed He was pronounced at 1740 hrs. on 04/12/2021. Causes of are as follows: Congestive heart failure Ischemic cardiomyopathy COPD Chronic kidney disease Dr Dottie Pineda
--- NOTE | 2021-04-13 08:03 | Discharge Summary ---
Date of Service April 13, 2021 Admission HPI Per Admitting Provider History obtained from patient, family, and records. Patient is a fair historian. Medical history significant for chronic systolic heart failure secondary to ischemic cardiomyopathy (EF 26%, TTE 2020) status post biventricular ICD/PPM, CAD status post CABG, history LBBB, valvular heart disease (moderate , moderate MR, mild AR, TTE 2020), COPD/ILD as per records, JOVITA/CPAP noncompliance as per records, Parkinson's disease, CRI (baseline creatinine 1.7), chronic anemia (baseline hemoglobin 10), hypothyroidism. Last confinement July 2019 for sepsis secondary to cholangitis. Patient noted worsening shortness of breath especially on exertion in the last week. Junky cough symptoms. Patient admits to choking symptoms with meals/water intake. Achy chest pain from coughing. No weight gain as per patient. No known recent COVID-19 contacts. Family worried about Covid. At the ER, patient received Solu-Medrol and neb treatment for COPD exacerbation. 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 Admission Exam Per Admitting Provider Physical Exam:M GENERAL: uncomfortable, oriented to day, slightly hard of hearing, minimal respiratory distress SKIN: Pallor, warm HEENT: Bespectacled, pale palpebral conjunctivae, no ptosis, dry buccal mucosa, nasal cannula in place NECK : Supple, no tenderness CHEST : Decreased breath sounds, occasional expiratory wheezes, no tenderness HEART : RRR, systolic murmur best heard on the left sternal border ABDOMEN: no distention, nontender EXTREMITIES : No LE swelling/tenderness, no other conspicuous deformities noted NEUROLOGIC : Coherent, no facial asymmetry, mild hearing impairment, intention tremors, no other gross focality Principal Diagnosis . Causes of -Congestive heart failure Ischemic cardiomyopathy COPD Chronic kidney disease Discharge Exam Lying in bed with Celso-Ribeiro breathing Constitutional + acute distress, + ill appearing and average body habitus Eyes PERRL, conjunctivae normal, anicteric sclerae ENMT external ear and nose normal, oropharynx normal Neck trachea midline, no thyromegaly Respiratory + respiratory distress (Moderate distress at rest) Auscultation: + diminished lung sounds, + crackles (At the bases) and + wheezes Cardiovascular Rate/Rhythm: regular rate and regular rhythm; not tachycardic Heart Sounds: normal S1 and normal S2; no murmur Extremities: + edema (Trace edema bilaterally) Gastrointestinal (Abdomen) Inspection/Auscultation: normal bowel sounds; abdomen not distended Percussion/Palpation: abdomen soft; abdomen nontender Lymphatic no cervical or axillary lymphadenopathy Discharge Data Allergies Allergy/AdvReac Type Severity Reaction Status Date / Time haloperidol Allergy Intermediate LOSS OF Verified 04/06/21 20:15 VISION Consultations 04/06/21 23:05 ED Decision to Admit Stat 04/07/21 11:58 Consult Nephrology Routine 04/08/21 10:02 Consult Pulmonology Routine 04/09/21 15:48 Consult Palliative Care Routine 04/10/21 18:17 Consult Patient Services Routine Ordered Studies 04/06/21 20:00 CT angio chest PE protocol Stat 04/09/21 00:26 Fluoro video [FL video swallow] Routine Hospital Course (1) Respiratory failure: Palliative care encounter Appreciate palliative input and recommendation Possible skilled care/Home with hospice We will continue current medications Condition got worse He has been waiting to make you will In general condition deteriorated since last evening Has been on comfort care since last evening Family members especially the and the daughter are with him in the room Getting supportive medications Following up the main medical conditions he has been suffering from: Acute on chronic respiratory failure with hypoxia Chronic oxygen dependency-3 L at baseline at bedtime COPD/ILD exacerbation,Possible aspiration pneumonitis B/L Pleural Effusion Negative COVID Screen CTA:No evidence of pulmonary embolism. Moderate right and small left pleural effusion, increased from prior exam. Redemonstration of chronic interstitial opacities may represent scarring. Stable calcifications in the left pleural. Stable small pulmonary nodules. Cardiomegaly with likely heart failure. Continue Augmentin, prednisone Continue nebs Continue supplemental oxygen as needed Speech therapy evaluation Appreciate pulmonology Input and recommendation. Breo and Incruse Ellipta have been restarted as per pulmonary Consider thoracentesis is not considered as the effusion is very small Condition is worsened today with more shortness of breath and confusion Denies any pain Acute on chronic systolic heart failure Bilateral pleural effusion is secondary H/O chronic systolic heart failure secondary to ischemic cardiomyopathy Last EF ~ 25%, S/P ICD/PPM Cautious use of IV diuretics given TAMI Given 40 mg IV Lasix today Appreciate Nephrology Input Reassess volume status tomorrow and consider diuretics as needed Condition has been stable Acute kidney injury on CKD III Avoid nephrotoxic agents as able Monitor renal function Appreciate Nephrology Input and recommendation Not yet time for dialysis-creatinine remains stable at 2.37 H/O CAD S/P CABG/LBBB Continue aspirin, isosorbide, metoprolol, statin HTN On metoprolol Monitor Valvular heart disease moderate , moderate MR, mild AR, TTE 2020 Continue home medications Parkinson's disease chronic anemia Hb at baseline Hypothyroidism Continue levothyroxine Prediabetes HbA1c 5.9 DVT Px: Heparin SQ Code Status DNR/DNI Prognosis remains very poor Family members updated Total Time Total Time Spent Total Time Spent (In Minutes): 35 minutes Discharge Plan Discharge Items Patient Disposition: Other Date/Time: 04/12/21 17:40
== END 2021-04-12 20:25 | disposition expired | DRG 189 ==
LOC: ED 16:16 → SUATTDRO 04-07 01:06 → EDINP 04-07 01:06 → 2W 04-07 03:52